=== PATIENT | male | born 1930 | race Caucasian/White ===

== ENCOUNTER 2016-10-26 12:14 | Inpatient (IN) | payer OTHER ==
[~2016-10-26] VITALS: Ht 167.6 cm; Wt 63.7 kg
[~2016-10-26 12:14] MED LIST: ACET325T96 PO; ALL100 PO; ASPI325T39 PO; BISA-16 PO; DIPH50CA56 PO; FURO-85 PO; GLC5 PO; LISI-729 PO; METO-551 PO; MULT-477 PO; NRV5 PO; PANT1TAB48 PO; SRQ25 PO; VENL75TA4 PO
[2016-10-26 15:25] VITALS: BP 157/83; PULSE 79; TEMP 36.6; Ht 167.6 cm; Wt 63.7 kg
[2016-10-26] MEDS ORDERED: ACETAMINOPHEN 325 MG TAB PO PRN (15:30)
[2016-10-26] MEDS ORDERED: ONDANSETRON INJ 2 MG/ML 2 ML VIAL IV PRN (15:30)
[2016-10-26] MEDS ORDERED: MoRPHine SULFATE 4 MG/ML 1 ML CARP\\VIAL IV PRN (16:15)
[2016-10-26] MEDS ORDERED: PATIENT'S HEIGHT AND/OR WEIGHT NEEDED SCH (16:30)
[2016-10-26 16:47] LABS: INR 1.2 (0.9-1.1); PARTIAL THROMBOPLASTIN RATIO 1.2; PROTHROMBIN TIME (PATIENT) 12.5 SECONDS (9.0-12.0)
[2016-10-26] MEDS: HEPARIN SOD 5000 UNIT/0.5 ML CARP SQ SCH (17:17)
--- NOTE | 2016-10-26 17:43 | History and Physical ---
History & Physical Date & Time of Service: Oct 26, 2016 at 17:17 Chief Complaint: Lt Hip Fracture Primary Care Physician: Tatyana Vaz M.D. History of Present Illness Source: patient (could not give detailed history with dementia), hospital records 86 yo male who fell at home on 10/25 after standing up from a chair. The patient has dementia and cannot answer any detailed questions about recent history so the background was gathered from medical records from [facility]. He experienced severe left hip pain after his fall and could not stand up, brought to [facility]. X-ray of the left hip showed a femur fracture near the prior arthroplasty. Eliquis was held and orthopedic consult obtained. The surgeon recommended that surgery be delayed 48 hours after last Eliquis dose which was 10/25 at 2000. Unfortunately the surgeon was going out of town and there would be no orthopedic surgeon available at [place], so the patient was transferred to [facility] for definitive repair of his fracture. Per Dr. Alvarez from [place], the patient was stable overnight, his chronic medical issues were all stable. His pain was controlled with Morphine IV. Past Medical/Surgical History Dementia Medical Problems: (1) Anxiety Status: Chronic (2) Benign hypertension Status: Chronic (3) CKD (chronic kidney disease), stage III Status: Chronic (4) Coronary artery disease Status: Chronic (5) Depression Status: Chronic (6) Diabetes mellitus, type II Status: Chronic (7) Dyslipidemia Status: Chronic (8) History of prostate cancer Status: Chronic (9) History of renal calculi Status: Chronic (10) Hypertension Status: Chronic (11) Insomnia Status: Chronic (12) Spinal stenosis Status: Chronic (13) Thoracic aortic aneurysm Status: Chronic Surgical Problems: (1) Status post appendectomy Status: Chronic (2) Status post cholecystectomy Status: Chronic (3) Status post lumbar surgery Status: Chronic (4) Status post nephrectomy Permanent Comment: for benign disease Status: Chronic (5) Status post prostatectomy Status: Chronic (6) Status post repair hip fracture Status: Chronic Family History Cancer FATHER Diabetes mellitus MOTHER Heart disease SISTER Social History Smoking Status: Never Smoker Marital Status: Housing status: lives with significant other Occupational Status: retired Immunizations History of Influenza Vaccine: Yes History of Tetanus Vaccine?: Unknown History of Pneumococcal: Yes Pneumococcal Date: Aug 28, 2014 History of Hepatitis B Vaccine: Unknown Allergies Coded Allergies: No Known Allergies (Verified , 08/18/02) Home Medications Scheduled Allopurinol (Zyloprim *), 100 MG PO QAM Amlodipine Besylate (Amlodipine Besylate), 5 MG PO QAM Aspirin (Aspirin Ec), 325 MG PO DAILY Diphenhydramine Hcl (Sleep) (Unisom Sleepgels), 50 MG PO HS Furosemide (Lasix), 20 MG PO DAILY Glipizide (Glipizide), 5 MG PO DAILY Lisinopril (Zestril), 5 MG PO DAILY Metoprolol Tartrate (Lopressor), 50 MG PO BID Multiple Vitamin (Thera), 1 TAB PO DAILY Pantoprazole (Protonix), 40 MG PO DAILY Quetiapine Fumarate (Quetiapine Fumarate), 25 MG PO HS Venlafaxine Hcl (Effexor), 75 MG PO DAILY Scheduled PRN Acetaminophen Tab (Tylenol), 650 MG PO for Pain Bisacodyl (Dulcolax), 5 TAB PO DAILY PRN for Constipation Review of Systems patient denies hip pain, chest pain, shortness of breath, detailed ROS could not be obtained due to dementia Physical Exam General Appearance: WD/WN, no apparent distress Head: normocephalic, atraumatic Eyes: normal inspection, EOMI, sclerae normal ENT: normal ENT inspection, hearing grossly normal, pharynx normal Neck: supple, no adenopathy, no JVD, trachea midline Respiratory/Chest: chest non-tender, lungs clear, normal breath sounds, no respiratory distress, no accessory muscle use Cardiovascular: regular rate, rhythm (regular with an occasional irregular beat and pause, likely PVC's), no edema, no gallop, no JVD, no murmur, normal peripheral pulses Abdomen/GI: normal bowel sounds, non tender, soft, no organomegaly Back: normal inspection, no CVA tenderness, no muscle spasm, normal range of motion Extremities/Musculoskelatal: no calf tenderness, normal capillary refill, no pedal edema, pelvis stable, + pertinent finding (left hip slightly tender, slightly internally rotated, limited ROM due to pain) Neurologic/Psych: tray worker II-XII nml as tested, no motor/sensory deficits, alert, normal mood/affect, normal reflexes, + disoriented Skin: normal color, warm/dry, no rash Lymphatic: no adenopathy Diagnostics Laboratory Results Results Past 24 Hours Test 10/26/16 16:30 Range/Units Prothrombin Time 12.5 9.0-12.0 SECONDS Prothromb Time International Ratio 1.2 0.9-1.1 Activated Partial Thromboplast Time 31.0 21.0-31.0 SECONDS Partial Thromboplastin Ratio 1.2 Impression Assessment and Plan 86 yo male with dementia, sick sinus syndrome, chronic diastolic HF, DM type II who suffered a periprosthetic left hip fracture after a fall at home - Left periprosthetic hip fracture: consult orthopedics for recommendations obtain EKG, Chest x-ray, BMP for pre-operative evaluation consent would need to be done through [facility] [place], NSS at 75cc/hr for optimization last took Eliquis 2.5mg on 10/25 at approximately 1999, so 48 hour iesha would be 10/27 at 1999 - H/o sick sinus syndome, permanent atrial fibrillation: takes Eliquis for stroke prevention continue Coreg 3.125mg BID and Diltiazem 30mg daily (this was confirmed by Dr. Alvarez at [place]) obtain pre-op EKG - Chronic diastolic HF: continue Coreg, Lisinopril, hold Lasix but resume after surgery - DM type II: hold Glipizide, utilize Novolog SS and diabetic diet - DVT prophylaxis: heparin SC as Eliquis wearing off, stop prior to OR Code status: DNR according to living will, will need temporarily reversed for the OR and then back to DNR after surgery Keysha Arce, [place] guardian, , tried to contact, no answer Level of Care Med/Surg Advanced Directives Existing Advance Directive: Yes Existing Living Will: Yes Existing Power of Medical Case Manager: Yes Resuscitation Status DO NOT RESUSCITATE VTE Prophylaxis VTE Risk Assessment Done? Y/N: Yes Risk Level: High Given or contraindicated: Unfractionated heparin SQ
[2016-10-26] MEDS: MoRPHine SULFATE 2 MG/ML CARP IV PRN (18:28)
[2016-10-26] MEDS: SODIUM CHLORIDE 0.9% 1000ML 1,000 ML IV SCH (18:28)
[2016-10-26] MEDS ORDERED: GLUCOSE 40% GEL 15 GM TUBE PO PRN (18:45)
[2016-10-26] MEDS ORDERED: GLUCOSE 10 TABS/TUBE PO PRN (18:45)
[2016-10-26] MEDS ORDERED: DEXTROSE 50% 50 ML SYR IV PRN (18:45)
[2016-10-26] MEDS ORDERED: GLUCAGON FOR INJ 1 MG VIAL SQ PRN (18:45)
--- NOTE | 2016-10-26 19:38 | DIAGNOSTIC IMAGING REPORT ---
CHEST ONE VIEW PORTABLE HISTORY: pre-operative COMPARISON: Chest 03/07/2015. FINDINGS: The heart is mildly enlarged. There is mild pulmonary vascular congestion without overt edema. No pleural effusions. No pneumothorax. There is an IVC filter. Prior cholecystectomy. No rib fractures. IMPRESSION: Cardiomegaly with mild pulmonary vascular congestion. Electronically signed by: Damir Moura M.D. 10/26/2016 7:36 PM Dictated Date/Time: 10/26/2016 7:35 PM
[2016-10-26] MEDS ORDERED: METOPROLOL TARTRATE 50 MG TAB PO SCH (21:00)
[2016-10-26] MEDS: INSULIN ASPART 100 UNITS/ML 3 ML PEN SC SCH (21:00)
[2016-10-26] MEDS: QUETIAPINE FUMARATE 25 MG TAB PO SCH (21:15)
[2016-10-26] MEDS: CARVEDILOL 3.125 MG TAB PO SCH (21:15)
--- NOTE | 2016-10-26 21:48 | ORTHOPEDIC CONSULTATION ---
DATE OF CONSULTATION: 10/26/2016 ADDENDUM Reviewed x-rays. The patient has an uncemented bipolar hemiarthroplasty of the left femur with a periprosthetic fracture which starts at the greater trochanter, it spirals down, exits at the tip of the stem to just below the tip of the stem. There is some widening of the canal at the area of the fracture which would indicate the stem is most likely loose. PLAN: Would be revision to a long stem prosthetic with cerclage wires. We will discuss this with Dr. Salamanca and Dr. Bates with regard to definitive treatment plan.
--- NOTE | 2016-10-26 22:05 | ORTHOPEDIC CONSULTATION ---
DATE OF CONSULTATION: 10/26/2016 HISTORY OF PRESENT ILLNESS: The patient is an 86-year-old male, who fell at home, October 25. The patient has dementia and is a poor historian. I did ask him about his injuries when he fell in the kitchen. Not clear whether this is true or not. The patient is clearly demented and disoriented, but awake and alert. Because of the pain, he brought to [facility], x-rayed, showed a periprosthetic fracture. Apparently, there was no coverage in [place] for orthopedics and he was transferred here for definitive treatment. He is on Eliquis, last dose October 25. PAST MEDICAL HISTORY: Dementia, anxiety, hypertension, chronic kidney disease stage III, CAD, type 2 diabetes, dyslipidemia, prostate CA, renal calculi, chronic insomnia, spinal stenosis, thoracic aortic aneurysm, multiple surgeries, including hip surgery. FAMILY HISTORY: Diabetes, heart disease. SOCIAL HISTORY: Nonsmoker. . There is no significant other. Retired. ALLERGIES: None known. MEDICATIONS: Multiple. Allopurinol, amlodipine, aspirin, diphenhydramine, HCl, Lasix, glipizide, Zestril, Lopressor, multivitamin, Protonix, Effexor, quetiapine, fumarate, Eliquis, p.r.n. Tylenol, Dulcolax. PHYSICAL EXAMINATION: His extremity exam, his left hip is held in a flexed and slightly externally rotated position. He has a swollen thigh and some bruising down to his knee. He also has a swollen knee. He can dorsiflex and plantar flex his ankle, but cannot raise his great toe. Capillary refill intact. X-rays are pending at time of this evaluation. ASSESSMENT: Periprosthetic fracture, according to records. PLAN: Taking new x-rays here at , have IT assist with obtaining x-rays from [facility]. Patient will not be able to have surgery tomorrow, as it is still too early with last dose of Eliquis. Further recommendations after studies reviewed.
--- NOTE | 2016-10-26 22:08 | DIAGNOSTIC IMAGING REPORT ---
LEFT FEMUR 2 VIEWS ROUTINE CLINICAL HISTORY: preop ,view entire femur hip to knee COMPARISON STUDY: Left hip 10/25/2016. FINDINGS: Displaced and slightly angulated oblique periprosthetic fracture within the proximal left femur. No dislocation. The visualized pelvic bones appear intact. The fracture demonstrates up to 2.5 cm of anterior displacement distally. The distal femur is intact. IMPRESSION: Displaced periprosthetic fracture within the proximal left femur. Electronically signed by: Damir Moura M.D. 10/26/2016 10:06 PM Dictated Date/Time: 10/26/2016 10:03 PM
[2016-10-26 23:33] VITALS: BP 122/56; PULSE 74; TEMP 36.1; O2SAT 92
[2016-10-27] MEDS: MoRPHine SULFATE 2 MG/ML CARP IV PRN (00:11)
[2016-10-27] MEDS: HEPARIN SOD 5000 UNIT/0.5 ML CARP SQ SCH ×4 (00:12→23:50)
[2016-10-27] MEDS: SODIUM CHLORIDE 0.9% 1000ML 1,000 ML IV SCH ×2 (06:14→20:21)
[2016-10-27 06:48] LABS: BASO % 0.3 %; BASO ABS # 0.02 K/uL (0-0.2); EOS % 1.4 %; HEMATOCRIT 26.7 % (42-52); IG% 0.1 %; LYMPH % 20.5 %; LYMPH ABS # 1.42 K/uL (1.2-3.4); MEAN CELL VOLUME 98.5 fL (80-100); MEAN CORPUSCULAR HEMOGLOBIN 30.3 pg (25-34); MEAN CORPUSCULAR HGB CONC 30.7 g/dl (32-36); MEAN PLATELET VOLUME 8.8 fL (7.4-10.4); NEUT % 67.7 %; PLATELET COUNT 181 K/uL (130-400); RED BLOOD COUNT 2.71 M/uL (4.7-6.1); WHITE BLOOD COUNT 6.92 K/uL (4.8-10.8)
[2016-10-27 06:54] LABS: INR 1.2 (0.9-1.1); PROTHROMBIN TIME (PATIENT) 13.1 SECONDS (9.0-12.0)
[2016-10-27 07:15] LABS: COMPLETE YES
[2016-10-27 07:19] VITALS: BP 152/84; PULSE 73; TEMP 36.6; O2SAT 95
[2016-10-27 07:22] LABS: BUN/CREATININE RATIO 27.5 (10-20); CALCIUM 8.6 mg/dl (8.5-10.1); CREATININE 1.9 mg/dl (0.60-1.40); MAGNESIUM 2.3 mg/dl (1.8-2.4); POTASSIUM 5.3 mmol/L (3.5-5.1)
[2016-10-27] MEDS: INSULIN ASPART 100 UNITS/ML 3 ML PEN SC SCH ×4 (08:00→21:00)
[2016-10-27] MEDS: AMLODIPINE BESYLATE 5 MG TAB PO SCH (09:19)
[2016-10-27] MEDS: ALLOPURINOL 100 MG TAB PO SCH (09:19)
[2016-10-27] MEDS: VENLAFAXINE HCL 50 MG TAB PO SCH (09:19)
[2016-10-27] MEDS: FUROSEMIDE 20 MG TAB PO SCH (09:19)
[2016-10-27] MEDS: LISINOPRIL 5 MG TAB PO SCH (09:20)
[2016-10-27] MEDS: PANTOprazole SOD 40 MG TAB PO SCH (09:20)
[2016-10-27] MEDS: DILTIAZEM HCL 30 MG TAB PO SCH (09:20)
[2016-10-27] MEDS: CARVEDILOL 3.125 MG TAB PO SCH ×2 (09:20→20:21)
--- NOTE | 2016-10-27 10:25 | Clinical Documentation Query ---
ANGELI Pittman : CLINICAL DOCUMENTATION QUERY Patient is an 86 year old male accepted in transfer from outside hospital for periprosthetic femur fracture of left hip. Hemoglobin and hematocrit this a.m. were 8.2 g/dl and 26.7%. Patient seen in consultation by orthopedic surgery and anticipated operative repair this admission. In your clinical opinion is this patient being managed for: ( ) Acute blood loss anemia ( ) Other explanation of clinical findings (Please Explain) (X ) Unable to determine (Please Define) ( ) Need to Discuss ( ) Not Agree The medical record reflects the following clinical findings, treatment, and risk factors. Clinical Indicators: As above Treatment: For operative repair this admission, serial hematology Risk Factors: Fall, periprosthetic femur fracture, Eliquis Please clarify and document your clinical opinion in the progress notes and discharge summary. Terms such as "probable", "suspected", "likely", "questionable", "possible", or "still to be ruled out" are acceptable. IF IN AGREEMENT, YOU MUST DOCUMENT ABOVE DIAGNOSTIC STATEMENT IN DAILY PROGRESS NOTES AND DISCHARGE SUMMARY. This document is not part of the patient's record. Thank You, Bhargav Chino, RN [phone]
--- NOTE | 2016-10-27 10:35 | Progress Note ---
Subjective Date of Service: Oct 27, 2016. Subjective Pt evaluation today including: conversation w/ patient, conversation w/ family , physical exam, chart review, lab review, review of studies, conversation w/ production support consultant, review of inpatient medication list patient is a poor historian and appears to have underlying dementia. spoke with guardian Keysha Arce for [place]. She reports he takes Eliquis for atrial fibrillation, however, niece also reports a "clot" but could not tell me if this was DVT, PE, CVA, MS or otherwise. She also reports patient developed atrial fibrillation during surgery. He also had post-op anesthesia severe delirium but she was unable to tell me other intra-op complications. She had spoke with Dr. Matthews ([phone]) at [place] who had suggested a spinal anesthesia rather than general due to cardiac concerns and anesthesia reaction; also discussed was a possibility of a plate rather than a total replacement. Spoke with MORGAN Silveira from Dr. Nova Bauer's office ([phone]; [phone] ) who reports there were no DVTs/PEs listed in medical problems but does have CHF, Afib, CKD, T2DM, and HTN. THe eliquis, as far as she knows, was only for afib. Cardio: Félix Back Total encounter time: 45 minutes. Patient reports left back/hip pain and left medial knee pain. No chest pain, no sob. Hard of hearing. Review of Systems All Other Systems: Reviewed and Negative Medications Acetaminophen (Tylenol Tab) 650 mg Q4H PRN PO Last administered on 10/27/16 09:30; Admin Dose 650 MG; Start 10/26/16 at 15:30; Stop 11/25/16 at 15:29 Allopurinol (Zyloprim Tab) 100 mg QAM PO Last administered on 10/27/16 09:19; Admin Dose 100 MG; Start 10/27/16 at 09:00; Stop 11/26/16 at 08:59 Amlodipine Besylate (Norvasc Tab) 5 mg QAM PO Last administered on 10/27/16 09: 19; Admin Dose 5 MG; Start 10/27/16 at 09:00; Stop 11/26/16 at 08:59 Carvedilol (Coreg Tab) 3.125 mg BID PO Last administered on 10/27/16 09:20; Admin Dose 3.125 MG; Start 10/26/16 at 21:00; Stop 11/25/16 at 20:59 Dextrose (Dextrose 50% 50ML Syringe) 25-50ML OF 50% DW IV FOR... UD PRN IV; Start 10/26/16 at 18:45; Stop 11/25/16 at 18:44 Diltiazem HCl (Cardizem Tab) 30 mg DAILY PO Last administered on 10/27/16 09:20 ; Admin Dose 30 MG; Start 10/27/16 at 09:00; Stop 11/26/16 at 08:59 Furosemide (Lasix Tab) 20 mg DAILY PO Last administered on 10/27/16 09:19; Admin Dose 20 MG; Start 10/27/16 at 09:00; Stop 11/26/16 at 08:59 Glucagon (Glucagon Inj) 1 mg UD PRN SQ; Start 10/26/16 at 18:45; Stop 11/25/16 at 18:44 Glucose (Glucose 40% Gel) 15-30 GRAMS 15 GRAMS... UD PRN PO; Start 10/26/16 at 18:45; Stop 11/25/16 at 18:44 Glucose (Glucose Chew Tab) 4-8 Tablets 4 Tabl... UD PRN PO; Start 10/26/16 at 18:45; Stop 11/25/16 at 18:44 Heparin Sodium (Porcine) (Heparin Sq 5000 Unit/0.5ml) 5,000 unit Q8H SQ Last administered on 10/27/16 09:27; Admin Dose 5,000 UNIT; Start 10/26/16 at 16:00 ; Stop 11/25/16 at 15:59 Insulin Aspart (novoLOG ASPART) SLIDING SCALE G... ACHS SC; Start at 21:00; Stop 11/25/16 at 20:59 Lisinopril (Zestril Tab) 5 mg DAILY PO Last administered on 10/27/16 09:20; Admin Dose 5 MG; Start 10/27/16 at 09:00; Stop 11/26/16 at 08:59 Morphine Sulfate (MoRPHine SULFATE INJ) 2 mg Q4H PRN IV Last administered on 00:11; Admin Dose 2 MG; Start 10/26/16 at 16:15; Stop 11/09/16 at 16:14 Morphine Sulfate 4 mg 4 mg Q4H PRN IV; Start 10/26/16 at 16:15; Stop 11/09/16 at 16:14 Ondansetron HCl (Zofran Inj) 4 mg Q6H PRN IV; Start 10/26/16 at 15:30; Stop at 15:29 Pantoprazole Sodium (Protonix Tab) 40 mg DAILY PO Last administered on 09:20; Admin Dose 40 MG; Start 10/27/16 at 09:00; Stop 11/26/16 at 08:59 Quetiapine Fumarate (seroQUEL TAB) 25 mg HS PO Last administered on 10/26/16 21 :15; Admin Dose 25 MG; Start 10/26/16 at 21:00; Stop 11/25/16 at 20:59 Sodium Chloride (Nss 1000ml) 1,000 ml @ 75 mls/hr [id number] IV Last administered on 10/27/16 06:14; Admin Dose 75 MLS/HR; Start 10/26/16 at 17:45; Stop at 17:44 Venlafaxine HCl (effeXOR TAB) 75 mg DAILY PO Last administered on 10/27/16 09: 19; Admin Dose 75 MG; Start 10/27/16 at 09:00; Stop 11/26/16 at 08:59 Objective Vital Signs Date Time Temp Pulse Resp B/P Pulse Ox O2 Delivery O2 Flow Rate FiO2 10/27/16 07:19 36.6 73 18 152/84 95 Room Air 10/27/16 00:20 Room Air 10/26/16 23:33 36.1 74 16 122/56 92 10/26/16 15:25 36.6 79 16 157/83 Nasal Cannula 2.0 10/26/16 15:25 Nasal Cannula 2.0 Physical Exam Comments: nad, aox3, conjunctival pallor, anicteric hard of hearing irreg irreg, no murmurs appreciated ctab no w/r/r abd soft nt/nd +BS no LE edema pandya in place Laboratory Results Last 24 Hours Test 10/26/16 16:30 4/23/17 17:22 10/26/16 20:45 10/27/16 06:23 Prothrombin Time 12.5 SECONDS 13.1 SECONDS Prothromb Time International Ratio 1.2 1.2 Activated Partial Thromboplast Time 31.0 SECONDS Partial Thromboplastin Ratio 1.2 Bedside Glucose 120 mg/dl 136 mg/dl White Blood Count 6.92 K/uL Red Blood Count 2.71 M/uL Hemoglobin 8.2 g/dL Hematocrit 26.7 % Mean Corpuscular Volume 98.5 fL Mean Corpuscular Hemoglobin 30.3 pg Mean Corpuscular Hemoglobin Concent 30.7 g/dl Platelet Count 181 K/uL Mean Platelet Volume 8.8 fL Neutrophils (%) (Auto) 67.7 % Lymphocytes (%) (Auto) 20.5 % Monocytes (%) (Auto) 10.0 % Eosinophils (%) (Auto) 1.4 % Basophils (%) (Auto) 0.3 % Neutrophils # (Auto) 4.68 K/uL Lymphocytes # (Auto) 1.42 K/uL Monocytes # (Auto) 0.69 K/uL Eosinophils # (Auto) 0.10 K/uL Basophils # (Auto) 0.02 K/uL RDW Standard Deviation 62.3 fL RDW Coefficient of Variation 17.7 % Immature Granulocyte % (Auto) 0.1 % Immature Granulocyte # (Auto) 0.01 K/uL Red Blood Cell Morphology Unremarkable Sodium Level 144 mmol/L Potassium Level 5.3 mmol/L Chloride Level 110 mmol/L Carbon Dioxide Level 29 mmol/L Anion Gap 5.0 mmol/L Blood Urea Nitrogen 52 mg/dl Creatinine 1.90 mg/dl Est Creatinine Clear Calc Drug Dose 25.1 ml/min Estimated GFR () 36.2 Estimated GFR (Non- 31.2 BUN/Creatinine Ratio 27.5 Random Glucose 146 mg/dl Calcium Level 8.6 mg/dl Magnesium Level 2.3 mg/dl Test 10/27/16 08:15 Bedside Glucose 122 mg/dl Assessment and Plan 1. Left hip fracture - prior arthroplasty - tentatively scheduled for OR tomorrow - will need cardiac assessment with CHF, Afib, CAD (no prior stents per niece) - previously seen by Dr. Foley 2. Afib - Eliquis held since 10/25 at 10 pm - dvt ppx with hsq - cont diltiazem 3. CAD - cont coreg - hold off asa for now 4. CHF - appears compensated - cardio consulted - cont furosemide and lisinopril 5. HTN - BP borderline elevated - will monitor, goal <150 systolic 6. T2DM - acceptable glucose readings on sliding scale 7. CKD IIIb - baseline appears to be ~1.6-2.0 - slightly hyperkalemic - will give extra dose of lasix if potassium increases - renal diabetic diet if tolerates po
--- NOTE | 2016-10-27 12:23 | CARDIOLOGY CONSULTATION ---
DATE OF CONSULTATION: 10/27/2016 DATE OF CONSULTATION: 10/27/2016. [facility] REASON FOR CONSULTATION: Preoperative clearance. HISTORY OF PRESENT ILLNESS: This is an 86-year-old demented male patient who was in his usual state of health at home. He stood up from a chair and fell sustaining periprosthetic hip fracture on the left side. He was seen at [facility] and then transferred here for definitive treatment. As mentioned above, the patient is demented and cannot provide any significant history. The history is taken from the medical record as well as records from [facility]. According to our records, he has not seen a medical device sales in the past, at least not the recent past. His last contact with cardiovascular service line was with the cardiothoracic surgeons who evaluated him regarding an enlarged anterior thoracic aorta which they deemed to be an nonoperable and recommended conservative followup. That was in 2013 and it is mentioned in the notes at that time that the patient may have been demented. He had a previous hospital admission here. He had a previous admission here in March 2015, at which time Dr. Lemons saw him. He was being treated for DVT with Coumadin and developed some confusion and was admitted here with minor elevation in his cardiac troponins, most likely due to underlying renal insufficiency. He has no recent cardiac history and as mentioned above, he is not followed by cardiology. ALLERGIES: No known medical allergies. PAST MEDICAL HISTORY: The patient has advanced dementia. He also has chronic stage III kidney disease. He is a type 2 diabetic and may have a history of chronic coronary artery disease with no recent stents. He has history of prostate cancer and hypertension. As outlined above, he has a history of a thoracic aortic aneurysm. SOCIAL HISTORY: He is a never smoker. He is and retired. FAMILY MEDICAL HISTORY: Noncontributory. REVIEW OF SYSTEMS: A 12-point review of systems is unobtainable. PHYSICAL EXAMINATION: GENERAL: He is responsive. VITAL SIGNS: Blood pressure is 150/80, pulse is regular at 73. He is afebrile. HEAD, EYES, EARS, NOSE, AND THROAT: He is normocephalic. Pupils are equal and reactive to light. Mucous membranes are moist. NECK: The neck veins are flat. Carotids have good upstrokes bilaterally without bruits. Thyroid is nonpalpable. RESPIRATORY: Breath sounds equal bilaterally and clear to auscultation. CARDIOVASCULAR: Heart has an irregular rhythm. No cardiac murmurs or rubs. GASTROINTESTINAL: Abdomen is soft, nontender without organomegaly. EXTREMITIES: Free of edema, digit clubbing, or cyanosis. NEUROLOGIC: Grossly intact. SKIN: Warm to touch. LYMPH NODES: Negative to palpation. LABORATORY DATA: Hemoglobin is 8.2. WBC count 6.9, creatinine is 1.9, potassium is 5.3. EKG reveals atrial fibrillation with controlled ventricular response. IMPRESSION: 1. Left periprosthetic hip fracture. 2. Advanced dementia. 3. Diabetes mellitus. 4. Hypertension. 5. History of a thoracic aneurysm evaluated by cardiothoracic surgery 2 years ago and determined to be medical management only. RECOMMENDATIONS: The minimal amount of surgery should be performed on this elderly demented patient with multiple medical problems. The minimal amount of surgery to provide him with comfort and the possibility of ambulation should be considered. I will obtain an echocardiogram to evaluate his LV function, but he does not appear on exam to have significant valvular heart disease. The echocardiogram should not delay his surgery. We will follow along with you during his hospital stay.
[2016-10-27 12:24] LABS: FERRITIN 73.7 ng/ml (8.0-388.0)
[2016-10-27 15:20] VITALS: BP 133/64; PULSE 85; TEMP 36.6; O2SAT 95
[2016-10-27 16:00] VITALS: O2SAT 95
--- NOTE | 2016-10-27 17:55 | Orthopedic Progress Note ---
Orthopedic Progress Note Date of Service Oct 27, 2016. Subjective Additional Notes: Pt awake, alert, pleasantly confused. Wants to go home tonight and he'll come back tomorrow. Discussed that he needs surgery for his fracture. Pt replied, "keep the incision small if you can." Appears comfortable presently. No complaints. Objective calves soft nontender, N/V intact, toes mobile LLE shortened and externally rotated compared to right. [place] txn boot on without any weight on. Date Time Temp Pulse Resp B/P Pulse Ox O2 Delivery O2 Flow Rate FiO2 10/27/16 16:00 95 Room Air 10/27/16 15:20 36.6 85 16 133/64 95 Room Air 10/27/16 07:20 Room Air 10/27/16 07:19 36.6 73 18 152/84 95 Room Air 10/27/16 00:20 Room Air 10/26/16 23:33 36.1 74 16 122/56 92 Laboratory Results 24 Hours: Test 10/27/16 06:23 White Blood Count 6.92 K/uL Red Blood Count 2.71 M/uL Hemoglobin 8.2 g/dL Hematocrit 26.7 % Mean Corpuscular Volume 98.5 fL Mean Corpuscular Hemoglobin 30.3 pg Mean Corpuscular Hemoglobin Concent 30.7 g/dl Platelet Count 181 K/uL Mean Platelet Volume 8.8 fL Neutrophils (%) (Auto) 67.7 % Lymphocytes (%) (Auto) 20.5 % Monocytes (%) (Auto) 10.0 % Eosinophils (%) (Auto) 1.4 % Basophils (%) (Auto) 0.3 % Neutrophils # (Auto) 4.68 K/uL Lymphocytes # (Auto) 1.42 K/uL Monocytes # (Auto) 0.69 K/uL Eosinophils # (Auto) 0.10 K/uL Basophils # (Auto) 0.02 K/uL Prothromb Time International Ratio 1.2 Prothrombin Time 13.1 SECONDS Assessment & Plan Assessment: Left Periprosthetic Femur Fx Plan: Plans will be for patient to undergo and ORIF with cabling of the fx itself. If his Bipolar prosthesis is loosened, he will have to have this replaced with a longer stemmed prosthesis. Hopefully, we can do the minimal amount surgery for him. Planning for OR after 2pm tomorrow. Inhouse Planning Pain Management: Ultram, Morphine, PO Tylenol
[2016-10-27 20:19] VITALS: BP 144/72; PULSE 102; O2SAT 91
[2016-10-27] MEDS: QUETIAPINE FUMARATE 25 MG TAB PO SCH (20:21)
[2016-10-27] MEDS: TRAMADOL HCL 50 MG TAB PO PRN (21:06)
[2016-10-27 23:28] VITALS: BP 152/82; PULSE 86; TEMP 36.8; O2SAT 99
[2016-10-28] VITALS (19 sets, daily range): BP systolic 101–164; BP diastolic 46–82; PULSE 51–94; TEMP 36.2–37.1; O2SAT 89–100
[2016-10-28] MEDS ORDERED: NURSING DECISION MEDICATION ORDER SCH (01:30)
[2016-10-28] MEDS: INSULIN ASPART 100 UNITS/ML 3 ML PEN SC SCH ×3 (06:00→22:14)
[2016-10-28 07:47] LABS: INR 1.1 (0.9-1.1)
[2016-10-28] MEDS: VENLAFAXINE HCL 50 MG TAB PO SCH (07:52)
[2016-10-28] MEDS: HEPARIN SOD 5000 UNIT/0.5 ML CARP SQ SCH ×3 (07:52→23:29)
[2016-10-28] MEDS: FUROSEMIDE 20 MG TAB PO SCH (07:53)
[2016-10-28] MEDS: ALLOPURINOL 100 MG TAB PO SCH (07:53)
[2016-10-28] MEDS: PANTOprazole SOD 40 MG TAB PO SCH (07:53)
[2016-10-28 08:28] LABS: ALB/GLOB RATIO 0.8 (0.9-2); BUN/CREATININE RATIO 28.2 (10-20); CALCIUM 8.4 mg/dl (8.5-10.1); CREATININE 1.8 mg/dl (0.60-1.40); MAGNESIUM 2.3 mg/dl (1.8-2.4); POTASSIUM 4.2 mmol/L (3.5-5.1)
[2016-10-28] MEDS: AMLODIPINE BESYLATE 5 MG TAB PO SCH (08:28)
[2016-10-28] MEDS: DILTIAZEM HCL 30 MG TAB PO SCH (08:28)
[2016-10-28] MEDS: LISINOPRIL 5 MG TAB PO SCH (08:28)
[2016-10-28] MEDS: CARVEDILOL 3.125 MG TAB PO SCH ×2 (08:29→22:27)
[2016-10-28] MEDS ORDERED: LISINOPRIL 5 MG TAB PO ONE (09:30)
--- NOTE | 2016-10-28 09:30 | Progress Note ---
Subjective Date of Service: Oct 28, 2016. Subjective Pt evaluation today including: conversation w/ patient, physical exam, chart review, lab review, review of studies, conversation w/ funeral pre need consultant, review of inpatient medication list Patient pleasantly confused. No chest pain, no sob, No abd pain. Review of Systems All Other Systems: Reviewed and Negative Medications Acetaminophen (Tylenol Tab) 650 mg Q4H PRN PO Last administered on 10/27/16 09:30; Admin Dose 650 MG; Start 10/26/16 at 15:30; Stop 11/25/16 at 15:29 Acetaminophen/ Empty Bag (Ofirmev Iv/ Empty Iv Bag 100ml) 100 ml @ 400 mls/hr Q8H IV; Start 10/28/16 at 18:00; Stop 10/29/16 at 17:59 Acetaminophen/ Hydrocodone Bitart ([place] 5/325 Tab) 1-2 TABS FOR PAIN 1 TABLET ... Q6H PRN PO; Start 10/28/16 at 17:00; Stop 11/11/16 at 16:59; Status Future hold Allopurinol (Zyloprim Tab) 100 mg QAM PO Last administered on 10/27/16 09:19; Admin Dose 100 MG; Start 10/27/16 at 09:00; Stop 11/26/16 at 08:59 Amlodipine Besylate (Norvasc Tab) 5 mg QAM PO Last administered on 10/28/16 08: 28; Admin Dose 5 MG; Start 10/27/16 at 09:00; Stop 11/26/16 at 08:59 Atropine Sulfate (Atropine Sulfate 0.1MG/Ml Inj) 0.5 mg Q1M PRN IV; Start 10/28 at 15:00; Stop 10/28/16 at 20:00 Bisacodyl (Dulcolax Supp) 10 mg DAILY PRN CA; Start 10/28/16 at 17:00; Stop at 16:59 Carvedilol (Coreg Tab) 3.125 mg BID PO Last administered on 10/28/16 08:29; Admin Dose 3.125 MG; Start 10/26/16 at 21:00; Stop 11/25/16 at 20:59 Cefazolin Sodium/ Dextrose (Ancef Iv/D5 50ml) 55 ml @ 100 mls/hr Q8H IV; Start 10/28/16 at 17:00; Stop 10/29/16 at 01:32; Status UNV Dextrose (Dextrose 50% 50ML Syringe) 25-50ML OF 50% DW IV FOR... UD PRN IV; Start 10/26/16 at 18:45; Stop 11/25/16 at 18:44 Diltiazem HCl (Cardizem Tab) 30 mg DAILY PO Last administered on 10/28/16 08:28 ; Admin Dose 30 MG; Start 10/27/16 at 09:00; Stop 11/26/16 at 08:59 Docusate Sodium (coLACE CAP) 100 mg BID PO; Start 10/28/16 at 21:00; Stop at 20:59 Ferrous Sulfate (Feosol Tab) 325 mg BIDM PO; Start 10/30/16 at 08:30; Stop 11/29 at 08:29 Furosemide (Lasix Tab) 20 mg DAILY PO Last administered on 10/27/16 09:19; Admin Dose 20 MG; Start 10/27/16 at 09:00; Stop 11/26/16 at 08:59 Glucagon (Glucagon Inj) 1 mg UD PRN SQ; Start 10/26/16 at 18:45; Stop 11/25/16 at 18:44 Glucose (Glucose 40% Gel) 15-30 GRAMS 15 GRAMS... UD PRN PO; Start 10/26/16 at 18:45; Stop 11/25/16 at 18:44 Glucose (Glucose Chew Tab) 4-8 Tablets 4 Tabl... UD PRN PO; Start 10/26/16 at 18:45; Stop 11/25/16 at 18:44 Heparin Sodium (Porcine) (Heparin Sq 5000 Unit/0.5ml) 5,000 unit Q8H SQ Last administered on 10/27/16 23:50; Admin Dose 5,000 UNIT; Start 10/26/16 at 16:00 ; Stop 11/25/16 at 15:59 Hydromorphone HCl (Dilaudid Inj) 0.25 mg Q5M PRN IV; Start 10/28/16 at 15:00; Stop 10/28/16 at 20:00 Insulin Aspart (novoLOG ASPART) SLIDING SCALE G... Q6H SC; Start 10/28/16 at 06:00; Stop 11/27/16 at 05:59 Labetalol HCl 5 mg 5 mg Q5M PRN IV; Start 10/28/16 at 15:00; Stop 10/28/16 at 20:00 Lisinopril (Zestril Tab) 10 mg DAILY PO; Start 10/29/16 at 09:00; Stop 11/28/16 at 08:59 Magnesium Hydroxide (Milk Of Magnesia Susp) 30 ml Q6H PRN PO; Start 10/28/16 at 17:00; Stop 11/27/16 at 16:59 Metoclopramide HCl 10 mg 10 mg Q6H PRN IV; Start 10/28/16 at 17:00; Stop at 16:59 Morphine Sulfate (MoRPHine SULFATE INJ) 2 mg Q4H PRN IV Last administered on 00:11; Admin Dose 2 MG; Start 10/26/16 at 16:15; Stop 11/09/16 at 16:14 Morphine Sulfate 4 mg 4 mg Q4H PRN IV; Start 10/26/16 at 16:15; Stop 11/09/16 at 16:14 Morphine Sulfate If PO analgesic is order... Q3R PRN IV; Start 10/28/16 at 17: 00; Stop 11/11/16 at 16:59; Status UNV Ondansetron HCl (Zofran Inj) 4 mg ONE PRN IV; Start 10/28/16 at 15:00; Stop at 20:00 Ondansetron HCl (Zofran Inj) 4 mg Q6H PRN IV; Start 10/28/16 at 17:00; Stop at 16:59 Pantoprazole Sodium (Protonix Tab) 40 mg DAILY PO Last administered on 09:20; Admin Dose 40 MG; Start 10/27/16 at 09:00; Stop 11/26/16 at 08:59 Potassium Chloride/Sodium Chloride (KCl Inj/Nss 1000ml) 1,005 ml @ 100 mls/hr Q10H3M IV; Start 10/28/16 at 17:30; Stop 11/27/16 at 17:29 Quetiapine Fumarate (seroQUEL TAB) 25 mg HS PO Last administered on 10/27/16 20 :21; Admin Dose 25 MG; Start 10/26/16 at 21:00; Stop 11/25/16 at 20:59 Senna (Senokot Tab) 17.2 mg HS PO; Start 10/28/16 at 21:00; Stop 11/27/16 at 20: 59 Sodium Biphosphate/ Sodium Phosphate (Fleet Enema) 132 ml DAILY PRN CA; Start 10/28/16 at 17:00; Stop 11/27/16 at 16:59 Sodium Chloride (Nss 1000ml) 1,000 ml @ 75 mls/hr [id number] IV Last administered on 10/28/16 09:41; Admin Dose 75 MLS/HR; Start 10/26/16 at 17:45; Stop at 17:44 Tramadol HCl (Ultram Tab) @ Q4H PRN PO Last administered on 10/27/16 21:06; Admin Dose 50 MG; Start 10/27/16 at 17:45; Stop 11/26/16 at 17:44 Venlafaxine HCl (effeXOR TAB) 75 mg DAILY PO Last administered on 10/27/16 09: 19; Admin Dose 75 MG; Start 10/27/16 at 09:00; Stop 11/26/16 at 08:59 Objective Vital Signs Date Time Temp Pulse Resp B/P Pulse Ox O2 Delivery O2 Flow Rate FiO2 10/28/16 08:27 156/82 10/28/16 07:37 36.8 75 18 164/71 96 Room Air 10/28/16 00:10 Room Air 10/27/16 23:28 36.8 86 20 152/82 99 Room Air 10/27/16 20:19 102 144/72 91 Room Air 10/27/16 19:34 Room Air 10/27/16 16:00 95 Room Air 10/27/16 15:20 36.6 85 16 133/64 95 Room Air Physical Exam Comments: nad, awake, alert, oriented only to self irreg irreg, no murmur s appreciated ctab no w/r/r abd soft nt/nd +BS no LE edema Laboratory Results Last 24 Hours Test 10/27/16 11:30 10/27/16 11:50 10/27/16 17:02 10/27/16 20:51 Iron Level 24 mcg/dl Total Iron Binding Capacity 207 mcg/dl Transferrin 158 mg/dl Transferrin % Saturation 11 % Ferritin 73.7 ng/ml Vitamin B12 Level 355 pg/mL Folate > 24.00 ng/mL Bedside Glucose 148 mg/dl 156 mg/dl 156 mg/dl Test 10/28/16 05:55 10/28/16 06:26 Bedside Glucose 104 mg/dl Prothrombin Time 12.0 SECONDS Prothromb Time International Ratio 1.1 Sodium Level 143 mmol/L Potassium Level 4.2 mmol/L Chloride Level 110 mmol/L Carbon Dioxide Level 27 mmol/L Anion Gap 6.0 mmol/L Blood Urea Nitrogen 51 mg/dl Creatinine 1.80 mg/dl Est Creatinine Clear Calc Drug Dose 26.5 ml/min Estimated GFR () 38.6 Estimated GFR (Non- 33.3 BUN/Creatinine Ratio 28.2 Random Glucose 112 mg/dl Calcium Level 8.4 mg/dl Magnesium Level 2.3 mg/dl Total Bilirubin 1.1 mg/dl Aspartate Amino Transf (AST/SGOT) 22 U/L Alanine Aminotransferase (ALT/SGPT) 23 U/L Alkaline Phosphatase 98 U/L Total Protein 6.3 gm/dl Albumin 2.8 gm/dl Globulin 3.5 gm/dl Albumin/Globulin Ratio 0.8 Assessment and Plan 1. Left hip fracture - periprosthetic fracture - to OR today 2. Afib - Eliquis held since 10/25 at 10 pm - dvt ppx with hsq - cont diltiazem 3. CAD - cont coreg - hold off asa for now 4. CHF - appears compensated - cardio following - cont furosemide and lisinopril 5. HTN - BP borderline elevated - will monitor, goal <150 systolic 6. T2DM - acceptable glucose readings on sliding scale 7. CKD IIIb - baseline appears to be ~1.6-2.0 - appears to be at baseline - hyperkalemia resolved - avoid hypotension, avoid NSAIDs, avoid non-urgent contrast and other nephrotoxins 8. ANemia - SHAZIA - will need oral iron supplementation once tolerates po - received 1u prbc pre-op
[2016-10-28] MEDS: SODIUM CHLORIDE 0.9% 1000ML 1,000 ML IV SCH (09:41)
--- NOTE | 2016-10-28 12:54 | PROGRESS NOTE ---
DATE: 10/28/2016 FOLLOWUP VISIT SUBJECTIVE: The patient is an 86-year-old who later today will undergo surgery to repair a periprosthetic fracture that he sustained during a fall. His daughter was in the room today and we discussed the patient's surgery. All questions were answered. The patient is pleasant with unfortunately advanced dementia. OBJECTIVE: GENERAL: He is responsive. VITAL SIGNS: Blood pressure is 145/80 and pulse is regular at 70 beats per minute. He is afebrile. HEENT: Normocephalic. Pupils are equal and reactive to light. Extraocular muscles are intact bilaterally. NECK: The neck veins are flat. Carotids have good upstrokes bilaterally without bruits. Thyroid is nonpalpable. RESPIRATORY: Breath sounds equal bilaterally and clear to auscultation. CARDIOVASCULAR: Heart has an irregular rhythm. Normal S1 and S2. No S3 or S4. No cardiac rubs or murmurs. GASTROINTESTINAL: Abdomen is soft and nontender without organomegaly. EXTREMITIES: Free of edema, digit clubbing, or cyanosis. NEUROLOGIC: Grossly intact. SKIN: Warm to touch. LYMPH NODES: Negative to palpation. IMPRESSIONS: 1. Left periprosthetic hip fracture. 2. Advanced dementia. 3. Diabetes mellitus. 4. Hypertension. 5. History of a thoracic aneurysm evaluated by cardiothoracic surgery 2 years ago and determined to be medical management. RECOMMENDATIONS: We will continue to see the patient postop and help with medical management.
[2016-10-28] MEDS ORDERED: MIDAZOLAM HCL 1 MG/ML 2ML VIAL ONE (13:50)
[2016-10-28] MEDS ORDERED: PROPOFOL IV EMULSION 10 MG/ML 20 ML VIAL IV ONE ×2 (13:52→14:51)
[2016-10-28] MEDS ORDERED: POVIDONE-IODINE OP SOLN 30 ML BTL ONE (14:05)
[2016-10-28] MEDS ORDERED: BACITRACIN 50000 UNIT VIAL ONE (14:05)
--- NOTE | 2016-10-28 14:33 | History & Physical Bridge Note ---
H&P Re-Evaluation Bridge Note: I have examined the patient, reviewed the History & Physical and in the interval since the performance of the History & Physical I have noted the following changes of clinical significance: No changes noted
[2016-10-28] MEDS ORDERED: FENTANYL CITRATE INJ 50 MCG/1 ML 2 ML VIAL ONE (14:44)
[2016-10-28] MEDS ORDERED: NURSING VERBAL MED ORDER STA (14:50)
[2016-10-28] MEDS ORDERED: SUCCINYLCHOLINE CHLORIDE 20 MG/ML 10 ML VIAL IV ONE (14:51)
[2016-10-28] MEDS ORDERED: ROCURONIUM BROMIDE 10 MG/ML 5 ML VIAL ONE (14:51)
[2016-10-28] MEDS ORDERED: LIDOCAINE HCL 2% 2 ML VIAL (20MG/ML) ONE (14:51)
[2016-10-28] MEDS ORDERED: CEFAZOLIN IV 2,000 MG/60 ML D5W IV ONE (14:57)
[2016-10-28] MEDS ORDERED: HYDROmorphone INJ 0.5 MG/0.5 ML SYR IV PRN (15:00)
[2016-10-28] MEDS ORDERED: LABETALOL HCL IV 5 MG/ML 20ML IV PRN (15:00)
[2016-10-28] MEDS ORDERED: ATROPINE SULFATE 0.1 MG/ML 5ML SYR IV PRN (15:00)
[2016-10-28] MEDS ORDERED: ONDANSETRON INJ 2 MG/ML 2 ML VIAL IV PRN ×2 (15:00→17:00)
[2016-10-28] MEDS ORDERED: VASOPRESSIN 20 UNIT/ML VIAL ONE (16:49)
[2016-10-28] MEDS ORDERED: DEXAMETHASONE SOD INJ 4 MG/ML VIAL ONE (16:49)
[2016-10-28] MEDS ORDERED: ONDANSETRON INJ 2 MG/ML 2 ML VIAL ONE (16:49)
[2016-10-28] MEDS ORDERED: EpHEDrine SULFATE 50MG/5ML SYR ONE (16:49)
--- NOTE | 2016-10-28 16:51 | [facility] Post Operative Brief Note ---
Immediate Operative Summary Operative Date Oct 28, 2016. Pre-Operative Diagnosis Left Periprosthetic Femur Fracture Post-Operative Diagnosis Same preoperative diagnosis Procedure(s) Performed Left Open Reduction Internal Fixation Tanna-Prosthetic Femur Fracture Surgeon Dr. Bates Gin Clerk Surgeon(s) Shreya Perez PA-C Estimated Blood Loss 400ml Findings Good meng ingrowth proximal fragment Specimens none Disposition Recovery Room / PACU
[2016-10-28] MEDS ORDERED: SOD PHOSPHATE/SOD BIPHOSPHATE ENEMA 132 ML BTL PR PRN (17:00)
[2016-10-28] MEDS ORDERED: HYDROCODONE/ACETAMOPHEN 5/325MG TAB PO PRN (17:00)
[2016-10-28] MEDS ORDERED: BISACODYL 10 MG SUPP PR PRN (17:00)
[2016-10-28] MEDS ORDERED: METOCLOPRAMIDE HCL INJ 5 MG/ML 2 ML VIAL IV PRN (17:00)
[2016-10-28] MEDS ORDERED: MAGNESIUM HYDROXIDE SUSP 30 ML UDC PO PRN (17:00)
[2016-10-28] MEDS ORDERED: MoRPHine SULFATE 2 MG/ML CARP IV PRN (17:00)
--- NOTE | 2016-10-28 17:03 | DIAGNOSTIC IMAGING REPORT ---
LEFT FEMUR 2 VIEWS ROUTINE CLINICAL HISTORY: ORIF LT PERIPROSTHETIC FX COMPARISON: Left femur radiographs October 26, 2016. Fluoroscopy time: 16 seconds. FINDINGS: 4 fluoroscopic images demonstrate placement of a lateral plate and screws as well as cerclage wires which fixate the periprosthetic left femoral fracture. Fracture alignment has markedly improved and is now near anatomic. Drains are in place. IMPRESSION: Expected findings following internal fixation of the left femoral periprosthetic fracture. Electronically signed by: Abel Mitchell M.D. 10/28/2016 5:01 PM Dictated Date/Time: 10/28/2016 4:59 PM
[2016-10-28] MEDS ORDERED: GLYCOPYRROLATE INJ 0.2 MG/ML VIAL ONE (17:04)
[2016-10-28] MEDS ORDERED: NEOSTIGMINE METHYLSULFATE 5 MG/5 ML SYR ONE (17:04)
--- NOTE | 2016-10-28 17:32 | OPERATIVE REPORT ---
DATE OF OPERATION: 10/26/2016 ADDENDUM: REAL ESTATE CONSULTANT: WILMER Hackett. MrStella Johannacamilamartin was essential in all portions of this very complicated and extensive case. His assistance in positioning, prepping and draping, surgical supplies sterilizer, fracture fixation, wound closure, and dressing application. I attest to the content of the Intraoperative Record and any orders documented therein. Any exceptio ns are noted below.
--- NOTE | 2016-10-28 17:33 | OPERATIVE REPORT ---
DATE OF OPERATION: 10/28/2016 PREOPERATIVE DIAGNOSIS: Periprosthetic femur fracture, left. POSTOPERATIVE DIAGNOSIS: Periprosthetic femur fracture, left. PROCEDURE: Open reduction internal fixation periprosthetic femur fracture, left. SURGEON: Segundo Bates MD WHEEL LACER AND TRUER: Live Perez PA-C ANESTHESIA: General. COMPLICATIONS: None. DESCRIPTION OF PROCEDURE: Following induction of adequate general anesthesia, an extended lateral incision was made over the femur fracture. The fascia was incised throughout the length of the wound and quadriceps was elevated from the lateral aspect of the femur, exposing the fracture. Subperiosteal dissection was used to expose the fracture and a curette and irrigation were utilized to remove clotted blood. Inspection of the prosthesis was found to be well fixed and bony ingrown to the proximal fragment very little of the bony porous coating was visible. Because of this, decision was made to perform an open reduction internal fixation versus a revision to a new bipolar. Initial reduction was carried out with a [employer] bone clamp and a curved [employer] femoral locking plate was flared to fit the lateral aspect of the femur. Provisional fixation with 2 cables was carried out. Check x-rays revealed anatomic reduction of the fracture fragments. The plate was placed in the lateral aspect of the femur at the appropriate level and distal cortical screw was placed to bring the plate to the bone. Following this, using 4 additional distal locking screws and a cancellous bone screw in the greater trochanter as well as 3 additional cerclage cables, the fracture was finally fixed. The wound was thoroughly irrigated with pulsatile irrigation. The vastus lateralis was reapproximated to its anatomic position using #1 Vicryl [id number] sutures and running #1 Vicryl. Hemovac drain had been placed first. Fascia was closed using #1 Vicryl [id number] sutures, subcutaneous tissue was closed using 0 Dexon, skin was closed with david. Sterile dressing of Adaptic, 4 x 4s, ABDs, and foam tape were applied. The patient tolerated the procedure well. I attest to the content of the Intraoperative Record and any orders documented therein. Any exceptio ns are noted below.
[2016-10-28] MEDS ORDERED: FERROUS GLUCONATE 324 MG TAB PO SCH (17:45)
[2016-10-28 17:47] LABS: HEMATOCRIT 25.5 % (42-52)
--- NOTE | 2016-10-28 17:48 | Anesthesiology Progress Note ---
Anesthesia Post Op Note Date & Time Oct 28, 2016 at 17:47 Vital Signs Pain Intensity: 0 Vital Signs Past 12 Hours Date Time Temp Pulse Resp B/P Pulse Ox O2 Delivery O2 Flow Rate FiO2 10/28/16 17:35 70 17 133/74 97 Nasal Cannula 3 10/28/16 17:25 66 18 125/78 95 Nasal Cannula 3 10/28/16 17:17 36.8 63 15 133/71 99 Nasal Cannula 3 10/28/16 12:54 36.7 94 18 101/69 96 10/28/16 11:45 36.2 85 18 132/66 95 10/28/16 11:15 36.7 73 18 134/74 94 10/28/16 10:45 36.9 77 16 132/62 95 10/28/16 10:30 36.6 70 124/72 100 10/28/16 10:15 36.7 75 18 143/56 10/28/16 08:27 156/82 10/28/16 07:37 36.8 75 18 164/71 96 Room Air 10/28/16 07:30 Room Air Notes Mental Status: alert / awake / arousable, participated in evaluation Pt Amnestic to Procedure: Yes Nausea / Vomiting: adequately controlled Pain: adequately controlled Airway Patency, RR, SpO2: stable & adequate BP & HR: stable & adequate Hydration State: stable & adequate Anesthetic Complications: no major complications apparent
[2016-10-28] MEDS ORDERED: IV FLUIDS COMPLETED PRN (18:15)
[2016-10-28] MEDS: POTASSIUM CHLORIDE INJ 10 MEQ in SODIUM CHLORIDE 0.9% 1000ML 1,000 ML IV SCH (20:27)
[2016-10-28] MEDS: ACETAMINOPHEN IV 1,000 MG in EMPTY BAG 0 ML IV SCH (20:29)
[2016-10-28] MEDS ORDERED: NURSING VERBAL MED ORDER ONE (20:30)
[2016-10-28] MEDS: QUETIAPINE FUMARATE 25 MG TAB PO SCH (20:33)
[2016-10-28] MEDS: SENNA 8.6 MG TAB PO SCH (20:33)
[2016-10-28] MEDS: DOCUSATE SODIUM 100 MG CAP PO SCH (20:34)
[2016-10-28] MEDS: CEFAZOLIN IV 1,000 MG in DEXTROSE 5% 50ML 50 ML IV SCH (22:35)
[2016-10-29] MEDS: TRAMADOL HCL 50 MG TAB PO PRN ×2 (00:39→13:02)
[2016-10-29] MEDS: ACETAMINOPHEN IV 1,000 MG in EMPTY BAG 0 ML IV SCH ×2 (01:45→10:16)
[2016-10-29] MEDS: POTASSIUM CHLORIDE INJ 10 MEQ in SODIUM CHLORIDE 0.9% 1000ML 1,000 ML IV SCH ×3 (03:55→21:44)
[2016-10-29 04:27] VITALS: BP 141/77; PULSE 68; TEMP 36.2; O2SAT 92
[2016-10-29] MEDS: CEFAZOLIN IV 1,000 MG in DEXTROSE 5% 50ML 50 ML IV SCH (06:19)
[2016-10-29 07:32] VITALS: BP 152/91; PULSE 92; TEMP 36.3; O2SAT 98
--- NOTE | 2016-10-29 07:43 | Orthopedic Progress Note ---
Orthopedic Progress Note Date of Service Oct 29, 2016. Subjective Post OP Day: 1 Additional Notes: Pt awake but confused. Pleasant. Appears comfortable. Has been "one on one" care through the night but no combativeness etc with an essentially uneventful night. Received his second unit of blood last night. Hgb pending this AM. Objective calves soft nontender, N/V intact, dressing C/D/I, toes mobile, hemovac drainage (20ml latest shift; 180ml to date. ) Confused but pleasant. Follows some commands. Date Time Temp Pulse Resp B/P Pulse Ox O2 Delivery O2 Flow Rate FiO2 10/29/16 07:32 36.3 92 17 152/91 98 Room Air 10/29/16 04:27 36.2 68 18 141/77 92 Room Air 10/28/16 23:30 Room Air 10/28/16 23:23 36.5 73 18 130/76 98 Room Air 10/28/16 22:45 36.7 65 18 133/77 96 10/28/16 22:15 37.0 71 18 144/73 96 10/28/16 21:45 36.7 71 18 140/75 96 10/28/16 21:31 36.7 67 18 144/73 92 10/28/16 21:18 37.1 72 17 142/77 89 Room Air 0.0 10/28/16 21:15 37.1 75 18 142/77 93 10/28/16 20:22 36.4 51 17 128/69 93 Room Air 10/28/16 19:15 36.8 51 18 154/67 93 Room Air 10/28/16 18:44 36.3 67 16 151/46 97 Nasal Cannula 3.0 10/28/16 18:15 96 Nasal Cannula 3.0 10/28/16 18:15 36.8 64 20 136/66 96 Nasal Cannula 3.0 10/28/16 18:00 76 16 143/69 95 Nasal Cannula 3 10/28/16 17:45 37.1 62 20 135/62 95 Nasal Cannula 3 10/28/16 17:35 70 17 133/74 97 Nasal Cannula 3 10/28/16 17:25 66 18 125/78 95 Nasal Cannula 3 10/28/16 17:17 36.8 63 15 133/71 99 Nasal Cannula 3 10/28/16 12:54 36.7 94 18 101/69 96 4/25/17 11:45 36.2 85 18 132/66 95 10/28/16 11:15 36.7 73 18 134/74 94 10/28/16 10:45 36.9 77 16 132/62 95 10/28/16 10:30 36.6 70 124/72 100 10/28/16 10:15 36.7 75 18 143/56 10/28/16 08:27 156/82 10/28/16 07:37 36.8 75 18 164/71 96 Room Air Laboratory Results 24 Hours: Test 10/28/16 17:35 10/29/16 04:44 Hematocrit 25.5 % Hemoglobin 8.1 g/dL Assessment & Plan Assessment: POD 1 s/p ORIF Left Proximal Periprosthetic Femur Fx Plan: Begin PT/OT today. TTWB LLE; Mainly will be bed to chair/transfers. Likely will not understand WB status. H/O being bed to chair over the last several months at his place of residence. Will add Lovenox once daily Will need SNF/Rehab Inhouse Planning Pain Management: Ultram, Morphine, PO Tylenol DVT Prophylaxis: TEDs, SCDs
[2016-10-29 08:10] LABS: HEMATOCRIT 27.9 % (42-52); MEAN CELL VOLUME 94.9 fL (80-100); MEAN CORPUSCULAR HEMOGLOBIN 30.3 pg (25-34); MEAN CORPUSCULAR HGB CONC 31.9 g/dl (32-36); MEAN PLATELET VOLUME 9.4 fL (7.4-10.4); PLATELET COUNT 166 K/uL (130-400); RED BLOOD COUNT 2.94 M/uL (4.7-6.1); WHITE BLOOD COUNT 5.74 K/uL (4.8-10.8)
[2016-10-29] MEDS: HEPARIN SOD 5000 UNIT/0.5 ML CARP SQ SCH ×3 (08:38→23:49)
[2016-10-29] MEDS: DILTIAZEM HCL 30 MG TAB PO SCH (08:44)
[2016-10-29] MEDS: ALLOPURINOL 100 MG TAB PO SCH (08:44)
[2016-10-29] MEDS: PANTOprazole SOD 40 MG TAB PO SCH (08:44)
[2016-10-29] MEDS: AMLODIPINE BESYLATE 5 MG TAB PO SCH (08:44)
[2016-10-29] MEDS: FUROSEMIDE 20 MG TAB PO SCH (08:44)
[2016-10-29] MEDS: VENLAFAXINE HCL 50 MG TAB PO SCH (08:44)
[2016-10-29] MEDS: DOCUSATE SODIUM 100 MG CAP PO SCH ×2 (08:45→21:38)
[2016-10-29] MEDS: CARVEDILOL 3.125 MG TAB PO SCH ×2 (08:45→21:38)
[2016-10-29] MEDS: LISINOPRIL 10 MG TAB PO SCH (08:45)
[2016-10-29] MEDS: INSULIN ASPART 100 UNITS/ML 3 ML PEN SC SCH ×4 (08:49→21:43)
[2016-10-29 09:00] LABS: BUN/CREATININE RATIO 29.8 (10-20); CALCIUM 8.3 mg/dl (8.5-10.1); CREATININE 1.8 mg/dl (0.60-1.40); MAGNESIUM 2.1 mg/dl (1.8-2.4); PHOSPHORUS 4.7 mg/dl (2.5-4.9); POTASSIUM 4.9 mmol/L (3.5-5.1)
[2016-10-29] MEDS ORDERED: ENOXAPARIN 40 MG/0.4 ML SYR SQ SCH (09:00)
[2016-10-29] MEDS ORDERED: ENOXAPARIN 30 MG/0.3 ML SYR SQ SCH (09:00)
--- NOTE | 2016-10-29 09:48 | DIAGNOSTIC IMAGING REPORT ---
RENAL ULTRASOUND CLINICAL HISTORY: Chronic kidney disease. COMPARISON STUDY: None. TECHNIQUE: Sonography of the kidneys and the urinary bladder was performed. FINDINGS: The right kidney was not visualized. There is trace perihepatic fluid. The spleen was at the upper limits of normal for size. The left kidney was partially obscured but measured approximately 9.7 x 4.7 x 4.5 cm. There was no left hydronephrosis. A 1.7 cm cyst arising from the midpole of the left kidney was noted. A Miller catheter was noted within the bladder which was decompressed. IMPRESSION: 1. No left hydronephrosis. 2. Study compromised by suboptimal penetration with partial obscuration of the left kidney. 3. Nonvisualization of the right kidney. 4. Trace perihepatic fluid. Electronically signed by: Abel Mitchell M.D. 10/29/2016 9:46 AM Dictated Date/Time: 10/29/2016 9:44 AM
--- NOTE | 2016-10-29 10:47 | Progress Note ---
Subjective Date of Service: Oct 29, 2016. Subjective Pt evaluation today including: conversation w/ patient, physical exam, chart review, lab review, review of inpatient medication list Having left hip pain. OOBTC this morning. No chest pain, no sob. No abd pain. Ate some breakfast. Pleasantly confused. Review of Systems All Other Systems: Reviewed and Negative Medications Acetaminophen (Tylenol Tab) 650 mg Q4H PRN PO Last administered on 10/27/16 09:30; Admin Dose 650 MG; Start 10/26/16 at 15:30; Stop 11/25/16 at 15:29; Status Future hold Acetaminophen/ Empty Bag (Ofirmev Iv/ Empty Iv Bag 100ml) 100 ml @ 400 mls/hr Q8H IV Last administered on 10/29/16 10:16; Admin Dose 400 MLS/HR; Start at 18:00; Stop 10/29/16 at 17:59 Acetaminophen/ Hydrocodone Bitart 1-2 TABS FOR PAIN 1 TABLET ... Q6H PRN PO; Start 10/28/16 at 17:00; Stop 11/11/16 at 16:59; Status Future hold Allopurinol (Zyloprim Tab) 100 mg QAM PO Last administered on 10/29/16 08:44; Admin Dose 100 MG; Start 10/27/16 at 09:00; Stop 11/26/16 at 08:59 Amlodipine Besylate (Norvasc Tab) 5 mg QAM PO Last administered on 10/29/16 08: 44; Admin Dose 5 MG; Start 10/27/16 at 09:00; Stop 11/26/16 at 08:59 Bisacodyl (Dulcolax Supp) 10 mg DAILY PRN [place]; Start 10/28/16 at 17:00; Stop at 16:59 Carvedilol (Coreg Tab) 3.125 mg BID PO Last administered on 10/29/16 08:45; Admin Dose 3.125 MG; Start 10/26/16 at 21:00; Stop 11/25/16 at 20:59 Dextrose (Dextrose 50% 50ML Syringe) 25-50ML OF 50% DW IV FOR... UD PRN IV; Start 10/26/16 at 18:45; Stop 11/25/16 at 18:44 Diltiazem HCl (Cardizem Tab) 30 mg DAILY PO Last administered on 10/29/16 08:44 ; Admin Dose 30 MG; Start 10/27/16 at 09:00; Stop 11/26/16 at 08:59 Docusate Sodium (coLACE CAP) 100 mg BID PO Last administered on 10/29/16 08:45 ; Admin Dose 100 MG; Start 10/28/16 at 21:00; Stop 11/27/16 at 20:59 Ferrous Sulfate 325 mg 325 mg BIDM PO; Start 10/30/16 at 08:30; Stop 11/29/16 at 08:29 Furosemide (Lasix Tab) 20 mg DAILY PO Last administered on 10/29/16 08:44; Admin Dose 20 MG; Start 10/27/16 at 09:00; Stop 11/26/16 at 08:59 Glucagon (Glucagon Inj) 1 mg UD PRN SQ; Start 10/26/16 at 18:45; Stop 11/25/16 at 18:44 Glucose (Glucose 40% Gel) 15-30 GRAMS 15 GRAMS... UD PRN PO; Start 10/26/16 at 18:45; Stop 11/25/16 at 18:44 Glucose (Glucose Chew Tab) 4-8 Tablets 4 Tabl... UD PRN PO; Start 10/26/16 at 18:45; Stop 11/25/16 at 18:44 Heparin Sodium (Porcine) (Heparin Sq 5000 Unit/0.5ml) 5,000 unit Q8H SQ Last administered on 10/29/16 08:38; Admin Dose 5,000 UNIT; Start 10/26/16 at 16:00 ; Stop 11/25/16 at 15:59 Insulin Aspart (novoLOG ASPART) SLIDING SCALE G... ACHS SC Last administered on 10/29/16 08:49; Admin Dose 2 UNITS; Start 10/28/16 at 21:00; Stop 11/27/16 at 20:59 Lisinopril (Zestril Tab) 10 mg DAILY PO Last administered on 10/29/16 08:45; Admin Dose 10 MG; Start 10/29/16 at 09:00; Stop 11/28/16 at 08:59 Magnesium Hydroxide (Milk Of Magnesia Susp) 30 ml Q6H PRN PO; Start 10/28/16 at 17:00; Stop 11/27/16 at 16:59 Metoclopramide HCl (Reglan Inj) 10 mg Q6H PRN IV; Start 10/28/16 at 17:00; Stop 11/27/16 at 16:59 Miscellaneous (Iv Fluids Completed) 1 ea PRN PRN N/A; Start 10/28/16 at 18:15; Stop 10/28/17 at 18:14 Morphine Sulfate (MoRPHine SULFATE INJ) 2 mg Q4H PRN IV Last administered on 00:11; Admin Dose 2 MG; Start 10/26/16 at 16:15; Stop 11/09/16 at 16:14 Morphine Sulfate (MoRPHine SULFATE INJ) 4 mg Q4H PRN IV; Start 10/26/16 at 16: 15; Stop 11/09/16 at 16:14 Ondansetron HCl (Zofran Inj) 4 mg Q6H PRN IV; Start 10/28/16 at 17:00; Stop at 16:59 Pantoprazole Sodium (Protonix Tab) 40 mg DAILY PO Last administered on 08:44; Admin Dose 40 MG; Start 10/27/16 at 09:00; Stop 11/26/16 at 08:59 Potassium Chloride/Sodium Chloride (KCl Inj/Nss 1000ml) 1,005 ml @ 100 mls/hr Q10H3M IV Last administered on 10/29/16 03:55; Admin Dose 100 MLS/HR; Start at 17:30; Stop 11/27/16 at 17:29 Quetiapine Fumarate (seroQUEL TAB) 25 mg HS PO Last administered on 10/28/16 20 :33; Admin Dose 25 MG; Start 10/26/16 at 21:00; Stop 11/25/16 at 20:59 Senna (Senokot Tab) 17.2 mg HS PO Last administered on 10/28/16 20:33; Admin Dose 17.2 MG; Start 10/28/16 at 21:00; Stop 11/27/16 at 20:59 Sodium Biphosphate/ Sodium Phosphate (Fleet Enema) 132 ml DAILY PRN [place]; Start 10/28/16 at 17:00; Stop 11/27/16 at 16:59 Tramadol HCl (Ultram Tab) @ Q4H PRN PO Last administered on 10/29/16 00:39; Admin Dose 100 MG; Start 10/27/16 at 17:45; Stop 11/26/16 at 17:44 Venlafaxine HCl (effeXOR TAB) 75 mg DAILY PO Last administered on 10/29/16t 08: 44; Admin Dose 75 MG; Start 10/27/16 at 09:00; Stop 11/26/16 at 08:59 Objective Vital Signs Date Time Temp Pulse Resp B/P Pulse Ox O2 Delivery O2 Flow Rate FiO2 10/29/16 07:40 Room Air 10/29/16 07:32 36.3 92 17 152/91 98 Room Air 10/29/16 04:27 36.2 68 18 141/77 92 Room Air 10/28/16 23:30 Room Air 10/28/16 23:23 36.5 73 18 130/76 98 Room Air 10/28/16 22:45 36.7 65 18 133/77 96 10/28/16 22:15 37.0 71 18 144/73 96 10/28/16 21:45 36.7 71 18 140/75 96 10/28/16 21:31 36.7 67 18 144/73 92 10/28/16 21:18 37.1 72 17 142/77 89 Room Air 0.0 10/28/16 21:15 37.1 75 18 142/77 93 10/28/16 20:22 36.4 51 17 128/69 93 Room Air 10/28/16 19:15 36.8 51 18 154/67 93 Room Air 10/28/16 18:44 36.3 67 16 151/46 97 Nasal Cannula 3.0 10/28/16 18:15 96 Nasal Cannula 3.0 10/28/16 18:15 36.8 64 20 136/66 96 Nasal Cannula 3.0 10/28/16 18:00 76 16 143/69 95 Nasal Cannula 3 10/28/16 17:45 37.1 62 20 135/62 95 Nasal Cannula 3 10/28/16 17:35 70 17 133/74 97 Nasal Cannula 3 10/28/16 17:25 66 18 125/78 95 Nasal Cannula 3 10/28/16 17:17 36.8 63 15 133/71 99 Nasal Cannula 3 10/28/16 12:54 36.7 94 18 101/69 96 10/28/16 11:45 36.2 85 18 132/66 95 10/28/16 11:15 36.7 73 18 134/74 94 10/28/16 10:45 36.9 77 16 132/62 95 Physical Exam Comments: nad, alert and awake oriented to self irreg irreg, no murmurs appreciated ctab no w/r/r abd soft nt/nd +BS no LE edema, Left hip dressed pandya in place Laboratory Results Last 24 Hours Test 10/28/16 11:53 10/28/16 17:22 10/28/16 17:35 10/28/16 21:34 Bedside Glucose 111 mg/dl 114 mg/dl 149 mg/dl Hemoglobin 8.1 g/dL Hematocrit 25.5 % Test 10/29/16 07:47 10/29/16 08:18 White Blood Count 5.74 K/uL Red Blood Count 2.94 M/uL Hemoglobin 8.9 g/dL Hematocrit 27.9 % Mean Corpuscular Volume 94.9 fL Mean Corpuscular Hemoglobin 30.3 pg Mean Corpuscular Hemoglobin Concent 31.9 g/dl RDW Standard Deviation 58.5 fL RDW Coefficient of Variation 17.0 % Platelet Count 166 K/uL Mean Platelet Volume 9.4 fL Sodium Level 141 mmol/L Potassium Level 4.9 mmol/L Chloride Level 108 mmol/L Carbon Dioxide Level 21 mmol/L Anion Gap 12.0 mmol/L Blood Urea Nitrogen 54 mg/dl Creatinine 1.80 mg/dl Est Creatinine Clear Calc Drug Dose 26.5 ml/min Estimated GFR () 38.6 Estimated GFR (Non- 33.3 BUN/Creatinine Ratio 29.8 Random Glucose 198 mg/dl Calcium Level 8.3 mg/dl Phosphorus Level 4.7 mg/dl Magnesium Level 2.1 mg/dl Bedside Glucose 217 mg/dl Assessment and Plan 1. Left hip fracture - periprosthetic fracture s/p ORIF POD#1 - pain management - PT/OT for possible rehab vs SNF 2. Afib - Eliquis held since 10/25 at 10 pm - will need to determine when he can be placed back on his Eliquis, to discuss with ortho - rate-controlled - cont coreg 3. CAD - cont coreg - hold off asa for now 4. CHF - appears compensated - cardio following - cont furosemide and lisinopril 5. HTN - BP borderline elevated - will monitor, goal <150 systolic 6. T2DM - acceptable glucose readings on sliding scale 7. CKD IIIb - baseline appears to be ~1.6-2.0 -stable - avoid hypotension, avoid NSAIDs, avoid non-urgent contrast and other nephrotoxins 8. ANemia - start iron supplementation, monitor for constipation - Hb stable post-op, received 2 units pre-op 9. dvt ppx hsq
[2016-10-29 12:05] VITALS: BP 110/69; PULSE 76; TEMP 36.4; O2SAT 99
--- NOTE | 2016-10-29 13:17 | Anesthesiology Progress Note ---
Anesthesia Post Op Note Date & Time Oct 29, 2016 at 13:16 Vital Signs Pain Intensity: 3.0 Vital Signs Past 12 Hours Date Time Temp Pulse Resp B/P Pulse Ox O2 Delivery O2 Flow Rate FiO2 10/29/16 12:05 36.4 76 16 110/69 99 Room Air 10/29/16 07:40 Room Air 10/29/16 07:32 36.3 92 17 152/91 98 Room Air 10/29/16 04:27 36.2 68 18 141/77 92 Room Air Notes Mental Status: alert / awake / arousable, participated in evaluation Pt Amnestic to Procedure: Yes Nausea / Vomiting: adequately controlled Pain: adequately controlled Airway Patency, RR, SpO2: stable & adequate BP & HR: stable & adequate Hydration State: stable & adequate Anesthetic Complications: no major complications apparent
[2016-10-29 15:02] VITALS: BP 112/72; PULSE 60; TEMP 36.2; O2SAT 100
[2016-10-29 16:00] VITALS: O2SAT 100
[2016-10-29] MEDS: QUETIAPINE FUMARATE 25 MG TAB PO SCH (21:39)
[2016-10-29] MEDS: SENNA 8.6 MG TAB PO SCH (21:39)
[2016-10-29 22:53] VITALS: BP 116/67; PULSE 109; TEMP 36.5; O2SAT 91
[2016-10-30] MEDS: TRAMADOL HCL 50 MG TAB PO PRN (00:25)
[2016-10-30 06:57] LABS: HEMATOCRIT 25.1 % (42-52)
[2016-10-30 07:19] VITALS: BP 139/72; PULSE 66; TEMP 36.7; O2SAT 96
--- NOTE | 2016-10-30 07:42 | Orthopedic Progress Note ---
Orthopedic Progress Note Date of Service Oct 30, 2016. Subjective Post OP Day: 2 Additional Notes: Pt confused, h/o dementia, does not know where he is or that he had hip surgery , appears comfortable Objective dressing C/D/I (NS to change when pt back in bed), toes mobile Thigh moderately swollen Date Time Temp Pulse Resp B/P Pulse Ox O2 Delivery O2 Flow Rate FiO2 10/30/16 07:19 36.7 66 18 139/72 96 Room Air 10/29/16 23:50 Room Air 10/29/16 22:53 36.5 109 16 116/67 91 Room Air 10/29/16 16:00 100 Room Air 10/29/16 15:02 36.2 60 16 112/72 100 Room Air 10/29/16 12:05 36.4 76 16 110/69 99 Room Air 10/29/16 07:40 Room Air Laboratory Results 24 Hours: Test 10/29/16 07:47 10/30/16 06:14 Hematocrit 27.9 % 25.1 % Hemoglobin 8.9 g/dL 8.1 g/dL Assessment & Plan Assessment: POD 2 s/p ORIF Left Proximal Periprosthetic Femur Fx Plan: Begin PT/OT today. TTWB LLE; Mainly will be bed to chair/transfers. Likely will not understand WB status. H/O being bed to chair over the last several months at his place of residence. Pt may resume regular Eliquis and ASA Will need SNF/Rehab Inhouse Planning Pain Management: Ultram, Morphine, PO Tylenol DVT Prophylaxis: TEDs, SCDs
[2016-10-30] MEDS: POTASSIUM CHLORIDE INJ 10 MEQ in SODIUM CHLORIDE 0.9% 1000ML 1,000 ML IV SCH (07:58)
[2016-10-30] MEDS: INSULIN ASPART 100 UNITS/ML 3 ML PEN SC SCH ×4 (08:00→21:44)
[2016-10-30 08:43] VITALS: BP 161/56; PULSE 66
[2016-10-30] MEDS: FERROUS SULFATE 325 MG TAB PO SCH ×2 (08:44→17:52)
[2016-10-30] MEDS: DILTIAZEM HCL 30 MG TAB PO SCH (08:44)
[2016-10-30] MEDS: DOCUSATE SODIUM 100 MG CAP PO SCH ×2 (08:44→21:42)
[2016-10-30] MEDS: CARVEDILOL 3.125 MG TAB PO SCH ×2 (08:44→21:42)
[2016-10-30] MEDS: PANTOprazole SOD 40 MG TAB PO SCH (08:45)
[2016-10-30] MEDS: AMLODIPINE BESYLATE 5 MG TAB PO SCH (08:45)
[2016-10-30] MEDS: LISINOPRIL 10 MG TAB PO SCH (08:45)
[2016-10-30] MEDS: ALLOPURINOL 100 MG TAB PO SCH (08:45)
[2016-10-30] MEDS: FUROSEMIDE 20 MG TAB PO SCH (08:45)
[2016-10-30] MEDS: VENLAFAXINE HCL 50 MG TAB PO SCH (08:45)
[2016-10-30] MEDS: HEPARIN SOD 5000 UNIT/0.5 ML CARP SQ SCH ×3 (08:47→23:54)
--- NOTE | 2016-10-30 09:32 | Progress Note ---
Subjective Date of Service: Oct 30, 2016. Subjective Pt evaluation today including: conversation w/ patient, physical exam, review of studies, review of inpatient medication list Feeling fine. Left hip only hurts when he is moving around, otehrwise feels fine. TOlerating diet. No chest pain, no sob. Review of Systems All Other Systems: Reviewed and Negative Medications Acetaminophen (Tylenol Tab) 650 mg Q4H PRN PO Last administered on 10/27/16 09:30; Admin Dose 650 MG; Start 10/26/16 at 15:30; Stop 11/25/16 at 15:29; Status Future hold Acetaminophen/ Hydrocodone Bitart ([place] 5/325 Tab) 1-2 TABS FOR PAIN 1 TABLET ... Q6H PRN PO; Start 10/28/16 at 17:00; Stop 11/11/16 at 16:59; Status Future hold Allopurinol (Zyloprim Tab) 100 mg QAM PO Last administered on 10/30/16 08:45; Admin Dose 100 MG; Start 10/27/16 at 09:00; Stop 11/26/16 at 08:59 Amlodipine Besylate (Norvasc Tab) 5 mg QAM PO Last administered on 10/30/16 08: 45; Admin Dose 5 MG; Start 10/27/16 at 09:00; Stop 11/26/16 at 08:59 Bisacodyl (Dulcolax Supp) 10 mg DAILY PRN [place]; Start 10/28/16 at 17:00; Stop at 16:59 Carvedilol (Coreg Tab) 3.125 mg BID PO Last administered on 10/30/16 08:44; Admin Dose 3.125 MG; Start 10/26/16 at 21:00; Stop 11/25/16 at 20:59 Dextrose (Dextrose 50% 50ML Syringe) 25-50ML OF 50% DW IV FOR... UD PRN IV; Start 10/26/16 at 18:45; Stop 11/25/16 at 18:44 Diltiazem HCl (Cardizem Tab) 30 mg DAILY PO Last administered on 10/30/16 08:44 ; Admin Dose 30 MG; Start 10/27/16 at 09:00; Stop 11/26/16 at 08:59 Docusate Sodium (coLACE CAP) 100 mg BID PO Last administered on 10/30/16 08:44 ; Admin Dose 100 MG; Start 10/28/16 at 21:00; Stop 11/27/16 at 20:59 Ferrous Sulfate (Feosol Tab) 325 mg BIDM PO Last administered on 10/30/16 08:44 ; Admin Dose 325 MG; Start 10/30/16 at 08:30; Stop 11/29/16 at 08:29 Furosemide (Lasix Tab) 20 mg DAILY PO Last administered on 10/30/16 08:45; Admin Dose 20 MG; Start 10/27/16 at 09:00; Stop 11/26/16 at 08:59 Glucagon (Glucagon Inj) 1 mg UD PRN SQ; Start 10/26/16 at 18:45; Stop 11/25/16 at 18:44 Glucose (Glucose 40% Gel) 15-30 GRAMS 15 GRAMS... UD PRN PO; Start 10/26/16 at 18:45; Stop 11/25/16 at 18:44 Glucose (Glucose Chew Tab) 4-8 Tablets 4 Tabl... UD PRN PO; Start 10/26/16 at 18:45; Stop 11/25/16 at 18:44 Heparin Sodium (Porcine) (Heparin Sq 5000 Unit/0.5ml) 5,000 unit Q8H SQ Last administered on 10/30/16 08:47; Admin Dose 5,000 UNIT; Start 10/26/16 at 16:00 ; Stop 11/25/16 at 15:59 Insulin Aspart (novoLOG ASPART) SLIDING SCALE G... ACHS SC Last administered on 10/29/16 21:43; Admin Dose 2 UNITS; Start 10/28/16 at 21:00; Stop 11/27/16 at 20:59 Lisinopril (Zestril Tab) 10 mg DAILY PO Last administered on 10/30/16 08:45; Admin Dose 10 MG; Start 10/29/16 at 09:00; Stop 11/28/16 at 08:59 Magnesium Hydroxide (Milk Of Magnesia Susp) 30 ml Q6H PRN PO; Start 10/28/16 at 17:00; Stop 11/27/16 at 16:59 Metoclopramide HCl (Reglan Inj) 10 mg Q6H PRN IV; Start 10/28/16 at 17:00; Stop 11/27/16 at 16:59 Miscellaneous (Iv Fluids Completed) 1 ea PRN PRN N/A; Start 10/28/16 at 18:15; Stop 10/28/17 at 18:14 Morphine Sulfate (MoRPHine SULFATE INJ) 2 mg Q4H PRN IV Last administered on 00:11; Admin Dose 2 MG; Start 10/26/16 at 16:15; Stop 11/09/16 at 16:14 Morphine Sulfate (MoRPHine SULFATE INJ) 4 mg Q4H PRN IV; Start 10/26/16 at 16: 15; Stop 11/09/16 at 16:14 Ondansetron HCl (Zofran Inj) 4 mg Q6H PRN IV; Start 10/28/16 at 17:00; Stop at 16:59 Pantoprazole Sodium (Protonix Tab) 40 mg DAILY PO Last administered on 08:45; Admin Dose 40 MG; Start 10/27/16 at 09:00; Stop 11/26/16 at 08:59 Quetiapine Fumarate (seroQUEL TAB) 25 mg HS PO Last administered on 10/29/16 21 :39; Admin Dose 25 MG; Start 10/26/16 at 21:00; Stop 11/25/16 at 20:59 Senna (Senokot Tab) 17.2 mg HS PO Last administered on 10/29/16 21:39; Admin Dose 17.2 MG; Start 10/28/16 at 21:00; Stop 11/27/16 at 20:59 Sodium Biphosphate/ Sodium Phosphate (Fleet Enema) 132 ml DAILY PRN [place]; Start 10/28/16 at 17:00; Stop 11/27/16 at 16:59 Tramadol HCl (Ultram Tab) @ Q4H PRN PO Last administered on 10/30/16 00:25; Admin Dose 50 MG; Start 10/27/16 at 17:45; Stop 11/26/16 at 17:44 Venlafaxine HCl (effeXOR TAB) 75 mg DAILY PO Last administered on 10/30/16 08: 45; Admin Dose 75 MG; Start 10/27/16 at 09:00; Stop 11/26/16 at 08:59 Objective Vital Signs Date Time Temp Pulse Resp B/P Pulse Ox O2 Delivery O2 Flow Rate FiO2 10/30/16 08:43 66 161/56 10/30/16 07:20 Room Air 10/30/16 07:19 36.7 66 18 139/72 96 Room Air 10/29/16 23:50 Room Air 10/29/16 22:53 36.5 109 16 116/67 91 Room Air 10/29/16 16:00 100 Room Air 10/29/16 15:02 36.2 60 16 112/72 100 Room Air 10/29/16 12:05 36.4 76 16 110/69 99 Room Air Physical Exam Comments: nad, aox3, anicteric irreg irreg, no murmurs appreciated ctab no w/r/r abd soft nt/nd +BS no LE edema pandya off Laboratory Results Last 24 Hours Test 10/29/16 11:59 10/29/16 17:07 10/29/16 20:37 10/30/16 06:14 Bedside Glucose 197 mg/dl 202 mg/dl 210 mg/dl Hemoglobin 8.1 g/dL Hematocrit 25.1 % Test 10/30/16 08:11 Bedside Glucose 124 mg/dl Assessment and Plan 1. Left hip fracture - periprosthetic fracture s/p ORIF POD#2 - pain management - PT/OT for SNF - voiding trials today, check PVR 2. Afib - Eliquis held since 10/25 at 10 pm - will need to determine when he can be placed back on his Eliquis, to discuss with ortho & cardio - rate-controlled - cont coreg 3. CAD - cont coreg - hold off asa for now 4. CHF - appears compensated - cardio following - cont furosemide and lisinopril 5. HTN - BP borderline elevated - will monitor, goal <150 systolic 6. T2DM - acceptable glucose readings on sliding scale 7. CKD IIIb - baseline appears to be ~1.6-2.0 -stable - avoid hypotension, avoid NSAIDs, avoid non-urgent contrast and other nephrotoxins 8. ANemia - start iron supplementation, monitor for constipation - Hb stable post-op, received 2 units pre-op 9. Dementia - off 1:1 - Q15 min checks 10. dvt ppx hsq
[2016-10-30 15:35] VITALS: BP 137/75; PULSE 87; TEMP 36.6; O2SAT 93
[2016-10-30 16:00] VITALS: O2SAT 93
[2016-10-30] MEDS: QUETIAPINE FUMARATE 25 MG TAB PO SCH (21:43)
[2016-10-30] MEDS: SENNA 8.6 MG TAB PO SCH (21:43)
[2016-10-30 23:33] VITALS: BP 133/77; PULSE 89; TEMP 37; O2SAT 93
[2016-10-31] VITALS (7 sets, daily range): BP systolic 95–131; BP diastolic 60–76; PULSE 87–126; TEMP 36.4–36.9; O2SAT 94–98
[2016-10-31] MEDS: CARVEDILOL 3.125 MG TAB PO SCH ×2 (08:34→20:06)
[2016-10-31] MEDS: DILTIAZEM HCL 30 MG TAB PO SCH (08:34)
[2016-10-31] MEDS: INSULIN ASPART 100 UNITS/ML 3 ML PEN SC SCH ×4 (08:36→20:48)
[2016-10-31 08:59] LABS: HEMATOCRIT 25.8 % (42-52); MEAN CELL VOLUME 95.9 fL (80-100); MEAN CORPUSCULAR HEMOGLOBIN 30.5 pg (25-34); MEAN CORPUSCULAR HGB CONC 31.8 g/dl (32-36); MEAN PLATELET VOLUME 8.8 fL (7.4-10.4); PLATELET COUNT 204 K/uL (130-400); RED BLOOD COUNT 2.69 M/uL (4.7-6.1); WHITE BLOOD COUNT 4.58 K/uL (4.8-10.8)
--- NOTE | 2016-10-31 09:08 | Orthopedic Progress Note ---
Orthopedic Progress Note Date of Service Oct 31, 2016. Subjective Post OP Day: 3 Additional Notes: Dr Miramontes present. Pt had told nursing he was having some chest heaviness. Dr Miramontes examining patient presently. Pt appears comfortable at present time. Objective calves soft nontender, hip located, incision C/D/I Thigh swollen but not tense. Having serous drainage from the drain site and some from the wound itself. Incision without erythema. Date Time Temp Pulse Resp B/P Pulse Ox O2 Delivery O2 Flow Rate FiO2 10/31/16 08:33 36.7 106 16 131/76 97 Room Air 10/31/16 07:31 36.9 87 15 119/72 94 Room Air 10/31/16 07:16 Room Air 10/30/16 23:33 37.0 89 16 133/77 93 Room Air 10/30/16 23:15 Room Air 10/30/16 16:00 93 Room Air 10/30/16 15:35 36.6 87 16 137/75 93 Room Air Laboratory Results 24 Hours: Test 10/31/16 08:36 Hematocrit 25.8 % Hemoglobin 8.2 g/dL Assessment & Plan Assessment: POD 3 s/p ORIF Left Proximal Periprosthetic Femur Fx Plan: PT/OT . TTWB LLE; Mainly will be bed to chair/transfers. Likely will not understand WB status. H/O being bed to chair over the last several months at his place of residence. Pt may resume regular Eliquis and ASA Will need SNF/Rehab Chest heaviness being addressed by Dr. Miramontes Inhouse Planning Pain Management: Ultram, [place], Morphine DVT Prophylaxis: TEDs, SCDs, other (Eliquis) Discharge Planning Discharge Planning: longterm facility
--- NOTE | 2016-10-31 09:09 | Progress Note ---
Subjective Date of Service: Oct 31, 2016. Subjective Pt evaluation today including: conversation w/ patient, physical exam, lab review, review of studies, review of inpatient medication list Patient denies chest pain or heaviness. He does report having some sob, having to take deep breaths in. No pain in the LLE. Otherwise feels comfortable. Review of Systems All Other Systems: Reviewed and Negative Medications Acetaminophen (Tylenol Tab) 650 mg Q4H PRN PO Last administered on 10/27/16 09:30; Admin Dose 650 MG; Start 10/26/16 at 15:30; Stop 11/25/16 at 15:29; Status Future hold Acetaminophen/ Hydrocodone Bitart ([place] 5/325 Tab) 1-2 TABS FOR PAIN 1 TABLET ... Q6H PRN PO; Start 10/28/16 at 17:00; Stop 11/11/16 at 16:59; Status Future hold Allopurinol (Zyloprim Tab) 100 mg QAM PO Last administered on 10/30/16 08:45; Admin Dose 100 MG; Start 10/27/16 at 09:00; Stop 11/26/16 at 08:59 Amlodipine Besylate (Norvasc Tab) 5 mg QAM PO Last administered on 10/30/16 08: 45; Admin Dose 5 MG; Start 10/27/16 at 09:00; Stop 11/26/16 at 08:59 Apixaban (Eliquis Tab) 10 mg BID PO; Start 10/31/16 at 09:00; Stop 11/06/16 at 21 :00; Status UNV Bisacodyl (Dulcolax Supp) 10 mg DAILY PRN [place]; Start 10/28/16 at 17:00; Stop at 16:59 Carvedilol (Coreg Tab) 3.125 mg BID PO Last administered on 10/31/16 08:34; Admin Dose 3.125 MG; Start 10/26/16 at 21:00; Stop 11/25/16 at 20:59 Dextrose (Dextrose 50% 50ML Syringe) 25-50ML OF 50% DW IV FOR... UD PRN IV; Start 10/26/16 at 18:45; Stop 11/25/16 at 18:44 Diltiazem HCl (Cardizem Tab) 30 mg DAILY PO Last administered on 10/31/16 08:34 ; Admin Dose 30 MG; Start 10/27/16 at 09:00; Stop 11/26/16 at 08:59 Docusate Sodium (coLACE CAP) 100 mg BID PO Last administered on 10/30/16 08:44 ; Admin Dose 100 MG; Start 10/28/16 at 21:00; Stop 11/27/16 at 20:59 Ferrous Sulfate (Feosol Tab) 325 mg BIDM PO Last administered on 10/30/16 17:52 ; Admin Dose 325 MG; Start 10/30/16 at 08:30; Stop 11/29/16 at 08:29 Furosemide (Lasix Tab) 20 mg DAILY PO Last administered on 10/30/16 08:45; Admin Dose 20 MG; Start 10/27/16 at 09:00; Stop 11/26/16 at 08:59 Glucagon (Glucagon Inj) 1 mg UD PRN SQ; Start 10/26/16 at 18:45; Stop 11/25/16 at 18:44 Glucose (Glucose 40% Gel) 15-30 GRAMS 15 GRAMS... UD PRN PO; Start 10/26/16 at 18:45; Stop 11/25/16 at 18:44 Glucose (Glucose Chew Tab) 4-8 Tablets 4 Tabl... UD PRN PO; Start 10/26/16 at 18:45; Stop 11/25/16 at 18:44 Insulin Aspart (novoLOG ASPART) SLIDING SCALE G... ACHS SC Last administered on 10/29/16 21:43; Admin Dose 2 UNITS; Start 10/28/16 at 21:00; Stop 11/27/16 at 20:59 Lisinopril (Zestril Tab) 10 mg DAILY PO Last administered on 10/30/16 08:45; Admin Dose 10 MG; Start 10/29/16 at 09:00; Stop 11/28/16 at 08:59 Magnesium Hydroxide (Milk Of Magnesia Susp) 30 ml Q6H PRN PO; Start 10/28/16 at 17:00; Stop 11/27/16 at 16:59 Metoclopramide HCl (Reglan Inj) 10 mg Q6H PRN IV; Start 10/28/16 at 17:00; Stop 11/27/16 at 16:59 Miscellaneous (Iv Fluids Completed) 1 ea PRN PRN N/A; Start 10/28/16 at 18:15; Stop 10/28/17 at 18:14 Morphine Sulfate (MoRPHine SULFATE INJ) 2 mg Q4H PRN IV Last administered on 00:11; Admin Dose 2 MG; Start 10/26/16 at 16:15; Stop 11/09/16 at 16:14 Morphine Sulfate (MoRPHine SULFATE INJ) 4 mg Q4H PRN IV; Start 10/26/16 at 16: 15; Stop 11/09/16 at 16:14 Ondansetron HCl (Zofran Inj) 4 mg Q6H PRN IV; Start 10/28/16 at 17:00; Stop at 16:59 Pantoprazole Sodium (Protonix Tab) 40 mg DAILY PO Last administered on 08:45; Admin Dose 40 MG; Start 10/27/16 at 09:00; Stop 11/26/16 at 08:59 Quetiapine Fumarate (seroQUEL TAB) 25 mg HS PO Last administered on 10/30/16 21 :43; Admin Dose 25 MG; Start 10/26/16 at 21:00; Stop 11/25/16 at 20:59 Senna (Senokot Tab) 17.2 mg HS PO Last administered on 10/29/16 21:39; Admin Dose 17.2 MG; Start 10/28/16 at 21:00; Stop 11/27/16 at 20:59 Sodium Biphosphate/ Sodium Phosphate (Fleet Enema) 132 ml DAILY PRN [place]; Start 10/28/16 at 17:00; Stop 11/27/16 at 16:59 Tramadol HCl (Ultram Tab) @ Q4H PRN PO Last administered on 10/30/16 00:25; Admin Dose 50 MG; Start 10/27/16 at 17:45; Stop 11/26/16 at 17:44 Venlafaxine HCl (effeXOR TAB) 75 mg DAILY PO Last administered on 10/30/16 08: 45; Admin Dose 75 MG; Start 10/27/16 at 09:00; Stop 11/26/16 at 08:59 Objective Vital Signs Date Time Temp Pulse Resp B/P Pulse Ox O2 Delivery O2 Flow Rate FiO2 10/31/16 08:33 36.7 106 16 131/76 97 Room Air 10/31/16 07:31 36.9 87 15 119/72 94 Room Air 10/31/16 07:16 Room Air 10/30/16 23:33 37.0 89 16 133/77 93 Room Air 10/30/16 23:15 Room Air 10/30/16 16:00 93 Room Air 10/30/16 15:35 36.6 87 16 137/75 93 Room Air Physical Exam Comments: nad, awake and answering questions, pleasantly confused irreg irreg, no murmurs appreciated bibasilar rhonchi, no wheezing abd soft nd +BS, suprapubic fullness LLE 1+ edema, no RLE edema Laboratory Results Last 24 Hours Test 10/30/16 12:20 10/30/16 17:03 10/30/16 20:30 10/31/16 08:10 Bedside Glucose 140 mg/dl 101 mg/dl 130 mg/dl 133 mg/dl Test 10/31/16 08:36 White Blood Count 4.58 K/uL Red Blood Count 2.69 M/uL Hemoglobin 8.2 g/dL Hematocrit 25.8 % Mean Corpuscular Volume 95.9 fL Mean Corpuscular Hemoglobin 30.5 pg Mean Corpuscular Hemoglobin Concent 31.8 g/dl RDW Standard Deviation 59.8 fL RDW Coefficient of Variation 17.3 % Platelet Count 204 K/uL Mean Platelet Volume 8.8 fL Assessment and Plan 1. Left hip fracture - periprosthetic fracture s/p ORIF POD#3 - pain management - PT/OT for SNF - some PVR in the 200s 2. Afib - resume Eliquis today, stop hsq dvt ppx - HR 108 prior to AM meds, will monitor - give coreg and diltiazem now 3. CAD - cont coreg - hold off asa for now 4. CHF - appears compensated, will check CXR - cardio following - cont furosemide and lisinopril - await CXR if patient needs increased dose of lasix 5. HTN - BP borderline elevated - will monitor, goal <150 systolic 6. T2DM - acceptable glucose readings on sliding scale 7. CKD IIIb - baseline appears to be ~1.6-2.0 -stable - avoid hypotension, avoid NSAIDs, avoid non-urgent contrast and other nephrotoxins 8. ANemia - start iron supplementation, monitor for constipation - Hb stable post-op, received 2 units pre-op 9. Dementia - confused at baseline - Q15 min checks
--- NOTE | 2016-10-31 09:59 | DIAGNOSTIC IMAGING REPORT ---
CHEST ONE VIEW PORTABLE HISTORY: dyspnea COMPARISON: Chest 10/26/2016. FINDINGS: The cardiac silhouette remains enlarged. Trace bilateral pleural effusions. No evidence for pulmonary edema. Peripheral and basilar interstitial thickening is again noted. This is likely chronic. No new focal lung consolidations to suggest pneumonia. No pneumothorax. Small nodular density within the periphery of the left lower lobe favors a nipple shadow. IMPRESSION: Cardiomegaly and trace bilateral pleural effusions. No evidence for pulmonary edema at this time. Electronically signed by: Damir Moura M.D. 10/31/2016 9:57 AM Dictated Date/Time: 10/31/2016 9:55 AM
[2016-10-31] MEDS: FERROUS SULFATE 325 MG TAB PO SCH ×2 (10:33→17:56)
[2016-10-31] MEDS: DOCUSATE SODIUM 100 MG CAP PO SCH ×2 (10:33→20:08)
[2016-10-31] MEDS: VENLAFAXINE HCL 50 MG TAB PO SCH (10:33)
[2016-10-31] MEDS: APIXABAN 2.5 MG TAB PO SCH ×2 (10:34→20:22)
[2016-10-31] MEDS: PANTOprazole SOD 40 MG TAB PO SCH (10:34)
[2016-10-31] MEDS: AMLODIPINE BESYLATE 5 MG TAB PO SCH (10:34)
[2016-10-31] MEDS: LISINOPRIL 10 MG TAB PO SCH (10:34)
[2016-10-31] MEDS: FUROSEMIDE 20 MG TAB PO SCH (10:34)
[2016-10-31] MEDS: ALLOPURINOL 100 MG TAB PO SCH (10:34)
--- NOTE | 2016-10-31 14:33 | PROGRESS NOTE ---
DATE: 10/31/2016 FOLLOWUP VISIT SUBJECTIVE: The patient is an 86-year-old male patient whom I saw earlier in his admission. I provided preoperative clearance for a periprosthetic hip fracture which was completed successfully the other day. This patient has advanced dementia. He does have heart disease including atrial fibrillation along with diabetes and hypertension. This morning, he was lethargic and fatigued. The nurses encouraged him to get out of bed and he said he had some soreness around his chest and did not feel well. He was put back into the bed and an EKG was obtained that shows atrial fibrillation and no acute changes. A stat troponin was done with the result being 0.1. After the patient was allowed to go back to bed, he has slept most of the day. When I went in to see him, he was comfortable and has no complaints other than his tailbone is sore. OBJECTIVE: VITAL SIGNS: Blood pressure 130/76, pulse is irregular at 100 beats per minute. He is afebrile. GENERAL: He is alert. HEENT: Normocephalic. Pupils are equal and reactive to light. Extraocular muscles are intact bilaterally. NECK: The neck veins are flat. Carotids have good upstrokes bilaterally without bruits. Thyroid is nonpalpable. RESPIRATORY: Breath sounds equal bilaterally and clear to auscultation. CARDIOVASCULAR: Heart has an irregular rhythm. Normal S1, S2, no S3, S4. No cardiac rubs or murmurs. GASTROINTESTINAL: Abdomen is soft, nontender without organomegaly. EXTREMITIES: Free of edema, digit clubbing, or cyanosis. NEUROLOGIC: Grossly intact. SKIN: Warm to touch. LYMPH NODES: Negative to palpation. IMPRESSION: 1. Atypical chest discomfort in an elderly gentleman with advanced dementia. 2. Persistent atrial fibrillation. 3. 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 RECOMMENDATIONS: I do not believe any additional cardiac testing is indicated at this time. I think he can remain on a regular medical floor until discharged to whatever rehab he can tolerate. From our standpoint, he can be discharged when he is ready from a surgical standpoint. JUAREZ
[2016-10-31] MEDS: QUETIAPINE FUMARATE 25 MG TAB PO SCH (20:08)
[2016-10-31] MEDS: SENNA 8.6 MG TAB PO SCH (20:09)
[2016-10-31] MEDS: TRAMADOL HCL 50 MG TAB PO PRN (20:13)
[2016-10-31] MEDS: BOOST GLUCOSE CONTROL PO SCH (20:20)
[2016-11-01 06:58] LABS: HEMATOCRIT 27.4 % (42-52); MEAN CELL VOLUME 96.5 fL (80-100); MEAN CORPUSCULAR HEMOGLOBIN 30.3 pg (25-34); MEAN CORPUSCULAR HGB CONC 31.4 g/dl (32-36); MEAN PLATELET VOLUME 9.2 fL (7.4-10.4); PLATELET COUNT 233 K/uL (130-400); RED BLOOD COUNT 2.84 M/uL (4.7-6.1); WHITE BLOOD COUNT 5.62 K/uL (4.8-10.8)
[2016-11-01 07:09] VITALS: BP 120/87; PULSE 136; TEMP 36.6; O2SAT 92
[2016-11-01] MEDS ORDERED: CRD30 PO (07:23)
[2016-11-01] MEDS ORDERED: MOMLX PO (07:23)
[2016-11-01] MEDS ORDERED: FRRS300 PO (07:23)
[2016-11-01] MEDS ORDERED: CRG3125 PO (07:23)
[2016-11-01] MEDS ORDERED: ELQ25 PO (07:23)
[2016-11-01] MEDS ORDERED: ULT50X PO (07:24)
[2016-11-01] MEDS ORDERED: HYDR-5688 PO (07:24)
[2016-11-01 07:29] LABS: BUN/CREATININE RATIO 35.5 (10-20); CALCIUM 8.4 mg/dl (8.5-10.1); CREATININE 1.7 mg/dl (0.60-1.40); MAGNESIUM 2.4 mg/dl (1.8-2.4); PHOSPHORUS 2.6 mg/dl (2.5-4.9)
[2016-11-01] MEDS: INSULIN ASPART 100 UNITS/ML 3 ML PEN SC SCH ×4 (08:00→21:03)
--- NOTE | 2016-11-01 08:05 | Orthopedic Progress Note ---
Orthopedic Progress Note Date of Service Nov 01, 2016. Subjective Post OP Day: 4 Denies: complaints Additional Notes: NO COMPLAINTS PLEASNALT CONFUSED Objective hip located, toes mobile THIGH MOD SWOLLEN DRESSING ON AND DRY Date Time Temp Pulse Resp B/P Pulse Ox O2 Delivery O2 Flow Rate FiO2 11/01/16 07:09 36.6 136 20 120/87 92 Room Air 10/31/16 23:52 108 10/31/16 23:20 36.4 126 18 107/60 94 Room Air 10/31/16 20:01 107 95/61 10/31/16 19:32 Room Air 10/31/16 16:00 98 Room Air 10/31/16 15:21 36.5 101 17 104/65 98 Room Air 10/31/16 08:33 36.7 106 16 131/76 97 Room Air Laboratory Results 24 Hours: Test 10/31/16 08:36 11/01/16 06:30 Hematocrit 25.8 % 27.4 % Hemoglobin 8.2 g/dL 8.6 g/dL Assessment & Plan Assessment: POD 4 s/p ORIF Left Proximal Periprosthetic Femur Fx Plan: PT/OT . TTWB LLE; Mainly will be bed to chair/transfers. Likely will not understand WB status. H/O being bed to chair over the last several months at his place of residence. Pt may resume regular Eliquis and ASA Will need SNF/Rehab WILL SIGN OFF PER GERIATRIC FX PROTOCOL STABLE FOR ECF Inhouse Planning Pain Management: Ultram, [place], Morphine DVT Prophylaxis: TEDs, SCDs, other (Eliquis) Discharge Planning Discharge Planning: half-way facility
[2016-11-01] MEDS: CARVEDILOL 3.125 MG TAB PO SCH ×2 (09:11→21:00)
[2016-11-01] MEDS: APIXABAN 2.5 MG TAB PO SCH ×2 (09:11→21:01)
[2016-11-01] MEDS: DILTIAZEM HCL 30 MG TAB PO SCH (09:11)
[2016-11-01] MEDS: ALLOPURINOL 100 MG TAB PO SCH (09:11)
[2016-11-01] MEDS: FERROUS SULFATE 325 MG TAB PO SCH ×2 (09:12→18:21)
[2016-11-01] MEDS: DOCUSATE SODIUM 100 MG CAP PO SCH ×2 (09:12→20:59)
[2016-11-01] MEDS: FUROSEMIDE 20 MG TAB PO SCH (09:13)
[2016-11-01] MEDS: PANTOprazole SOD 40 MG TAB PO SCH (09:13)
[2016-11-01] MEDS: VENLAFAXINE HCL 50 MG TAB PO SCH (09:14)
[2016-11-01] MEDS: LISINOPRIL 5 MG TAB PO SCH (09:24)
[2016-11-01] MEDS: BOOST GLUCOSE CONTROL PO SCH ×2 (10:22→20:58)
--- NOTE | 2016-11-01 13:17 | Progress Note ---
Subjective Date of Service: Nov 01, 2016. Subjective Pt evaluation today including: conversation w/ patient, physical exam, lab review, review of studies, review of inpatient medication list Feels well today. No chest pain, no sob. c/o left hip pain when he moves. Otehrwise, tolerating diet. Review of Systems All Other Systems: Reviewed and Negative Medications Acetaminophen (Tylenol Tab) 650 mg Q4H PRN PO Last administered on 10/27/16 09:30; Admin Dose 650 MG; Start 10/26/16 at 15:30; Stop 11/25/16 at 15:29; Status Future hold Acetaminophen/ Hydrocodone Bitart ([place] 5/325 Tab) 1-2 TABS FOR PAIN 1 TABLET ... Q6H PRN PO Last administered on 10/31/16 16:10; Admin Dose 2 TAB; Start at 17:00; Stop 11/11/16 at 16:59; Status Future hold Allopurinol (Zyloprim Tab) 100 mg QAM PO Last administered on 11/01/16 09:11; Admin Dose 100 MG; Start 10/27/16 at 09:00; Stop 11/26/16 at 08:59 Apixaban (Eliquis Tab) 10 mg BID PO Last administered on 11/01/16 09:11; Admin Dose 10 MG; Start 10/31/16 at 09:00; Stop 11/06/16 at 21:00 Bisacodyl (Dulcolax Supp) 10 mg DAILY PRN [place]; Start 10/28/16 at 17:00; Stop at 16:59 Carvedilol (Coreg Tab) 3.125 mg BID PO Last administered on 11/01/16 09:11; Admin Dose 3.125 MG; Start 10/26/16 at 21:00; Stop 11/25/16 at 20:59 Dextrose (Dextrose 50% 50ML Syringe) 25-50ML OF 50% DW IV FOR... UD PRN IV; Start 10/26/16 at 18:45; Stop 11/25/16 at 18:44 Diltiazem HCl (Cardizem Tab) 30 mg DAILY PO Last administered on 11/01/16 09:11 ; Admin Dose 30 MG; Start 10/27/16 at 09:00; Stop 11/26/16 at 08:59 Docusate Sodium (coLACE CAP) 100 mg BID PO Last administered on 11/01/16 09:12 ; Admin Dose 100 MG; Start 10/28/16 at 21:00; Stop 11/27/16 at 20:59 Enteral Nutritional Formula (Boost Glucose Control) 1 can BID PO Last administered on 11/01/16 10:22; Admin Dose 1 CAN; Start 10/31/16 at 21:00; Stop 11/30/16 at 20:59 Ferrous Sulfate (Feosol Tab) 325 mg BIDM PO Last administered on 11/01/16 09:12 ; Admin Dose 325 MG; Start 10/30/16 at 08:30; Stop 11/29/16 at 08:29 Furosemide (Lasix Tab) 20 mg DAILY PO Last administered on 11/01/16 09:13; Admin Dose 20 MG; Start 10/27/16 at 09:00; Stop 11/26/16 at 08:59 Glucagon (Glucagon Inj) 1 mg UD PRN SQ; Start 10/26/16 at 18:45; Stop 11/25/16 at 18:44 Glucose (Glucose 40% Gel) 15-30 GRAMS 15 GRAMS... UD PRN PO; Start 10/26/16 at 18:45; Stop 11/25/16 at 18:44 Glucose (Glucose Chew Tab) 4-8 Tablets 4 Tabl... UD PRN PO; Start 10/26/16 at 18:45; Stop 11/25/16 at 18:44 Insulin Aspart (novoLOG ASPART) SLIDING SCALE G... ACHS SC Last administered on 11/01/16 13:19; Admin Dose 2 UNITS; Start 10/28/16 at 21:00; Stop 11/27/16 at 20:59 Lisinopril (Zestril Tab) 5 mg QAM PO Last administered on 11/01/16 09:24; Admin Dose 5 MG; Start 11/01/16 at 09:00; Stop 12/01/16 at 08:59 Magnesium Hydroxide (Milk Of Magnesia Susp) 30 ml Q6H PRN PO; Start 10/28/16 at 17:00; Stop 11/27/16 at 16:59 Metoclopramide HCl (Reglan Inj) 10 mg Q6H PRN IV; Start 10/28/16 at 17:00; Stop 11/27/16 at 16:59 Miscellaneous (Iv Fluids Completed) 1 ea PRN PRN N/A; Start 10/28/16 at 18:15; Stop 10/28/17 at 18:14 Morphine Sulfate (MoRPHine SULFATE INJ) 2 mg Q4H PRN IV Last administered on 00:11; Admin Dose 2 MG; Start 10/26/16 at 16:15; Stop 11/09/16 at 16:14 Morphine Sulfate (MoRPHine SULFATE INJ) 4 mg Q4H PRN IV; Start 10/26/16 at 16: 15; Stop 11/09/16 at 16:14 Ondansetron HCl (Zofran Inj) 4 mg Q6H PRN IV; Start 10/28/16 at 17:00; Stop at 16:59 Pantoprazole Sodium (Protonix Tab) 40 mg DAILY PO Last administered on 09:13; Admin Dose 40 MG; Start 10/27/16 at 09:00; Stop 11/26/16 at 08:59 Quetiapine Fumarate (seroQUEL TAB) 25 mg HS PO Last administered on 10/31/16 20 :08; Admin Dose 25 MG; Start 10/26/16 at 21:00; Stop 11/25/16 at 20:59 Senna (Senokot Tab) 17.2 mg HS PO Last administered on 10/31/16 20:09; Admin Dose 17.2 MG; Start 10/28/16 at 21:00; Stop 11/27/16 at 20:59 Sodium Biphosphate/ Sodium Phosphate (Fleet Enema) 132 ml DAILY PRN [place]; Start 10/28/16 at 17:00; Stop 11/27/16 at 16:59 Tramadol HCl (Ultram Tab) @ Q4H PRN PO Last administered on 10/31/16 20:13; Admin Dose 100 MG; Start 10/27/16 at 17:45; Stop 11/26/16 at 17:44 Venlafaxine HCl (effeXOR TAB) 75 mg DAILY PO Last administered on 11/01/16 09: 14; Admin Dose 75 MG; Start 10/27/16 at 09:00; Stop 11/26/16 at 08:59 Objective Vital Signs Date Time Temp Pulse Resp B/P Pulse Ox O2 Delivery O2 Flow Rate FiO2 11/01/16 07:30 Room Air 11/01/16 07:09 36.6 136 20 120/87 92 Room Air 10/31/16 23:52 108 10/31/16 23:20 36.4 126 18 107/60 94 Room Air 10/31/16 20:01 107 95/61 10/31/16 19:32 Room Air 10/31/16 16:00 98 Room Air 10/31/16 15:21 36.5 101 17 104/65 98 Room Air Physical Exam Comments: nad, alert and awake, pleasantly confused (baseline) irreg irreg, no murmur sappreciated ctab no w/r/r abd soft nt nd +BS no LE edema Laboratory Results Last 24 Hours Test 10/31/16 13:27 10/31/16 17:11 10/31/16 20:12 11/01/16 06:30 Troponin I 0.091 ng/ml Bedside Glucose 151 mg/dl 164 mg/dl White Blood Count 5.62 K/uL Red Blood Count 2.84 M/uL Hemoglobin 8.6 g/dL Hematocrit 27.4 % Mean Corpuscular Volume 96.5 fL Mean Corpuscular Hemoglobin 30.3 pg Mean Corpuscular Hemoglobin Concent 31.4 g/dl RDW Standard Deviation 59.9 fL RDW Coefficient of Variation 17.1 % Platelet Count 233 K/uL Mean Platelet Volume 9.2 fL Test 11/01/16 06:40 11/01/16 08:13 11/01/16 12:10 Sodium Level 145 mmol/L Potassium Level 4.0 mmol/L Chloride Level 110 mmol/L Carbon Dioxide Level 27 mmol/L Anion Gap 8.0 mmol/L Blood Urea Nitrogen 60 mg/dl Creatinine 1.70 mg/dl Est Creatinine Clear Calc Drug Dose 28.1 ml/min Estimated GFR () 41.4 Estimated GFR (Non- 35.7 BUN/Creatinine Ratio 35.5 Random Glucose 140 mg/dl Calcium Level 8.4 mg/dl Phosphorus Level 2.6 mg/dl Magnesium Level 2.4 mg/dl Bedside Glucose 123 mg/dl 194 mg/dl Assessment and Plan 1. Left hip fracture - periprosthetic fracture s/p ORIF POD#4 - pain management - PT/OT for SNF 2. Afib - resume Eliquis - cont diltiazem and coreg 3. CAD - cont coreg - hold off asa for now 4. CHF - appears compensated - cardio following - cont furosemide and lisinopril - CXR no e/o pulmonary edema 5. HTN - BP borderline elevated - will monitor, goal <150 systolic - cont lisinopril 5mg 6. T2DM - acceptable glucose readings on sliding scale 7. CKD IIIb - baseline appears to be ~1.6-2.0 -stable - avoid hypotension, avoid NSAIDs, avoid non-urgent contrast and other nephrotoxins 8. ANemia - start iron supplementation, monitor for constipation - Hb stable post-op, received 2 units pre-op 9. Dementia - confused at baseline AWAITING SNF PLACEMENT.
[2016-11-01 15:21] VITALS: BP 129/87; PULSE 62; TEMP 36.5; O2SAT 92
[2016-11-01] MEDS: TRAMADOL HCL 50 MG TAB PO PRN ×2 (18:25→22:20)
[2016-11-01 20:59] VITALS: BP 97/71; PULSE 71
[2016-11-01] MEDS: SENNA 8.6 MG TAB PO SCH (21:01)
[2016-11-01] MEDS: QUETIAPINE FUMARATE 25 MG TAB PO SCH (21:02)
[2016-11-01 23:05] VITALS: BP 138/46; PULSE 62; TEMP 36.7; O2SAT 98
[2016-11-01 23:45] VITALS: PULSE 92
[2016-11-02] MEDS: TRAMADOL HCL 50 MG TAB PO PRN ×2 (07:24→19:20)
[2016-11-02 07:37] VITALS: BP 134/66; PULSE 104; TEMP 36.5; O2SAT 94
[2016-11-02] MEDS: INSULIN ASPART 100 UNITS/ML 3 ML PEN SC SCH ×4 (08:00→21:00)
[2016-11-02] MEDS: DILTIAZEM HCL 30 MG TAB PO SCH (09:25)
[2016-11-02] MEDS: FUROSEMIDE 20 MG TAB PO SCH (09:25)
[2016-11-02] MEDS: LISINOPRIL 5 MG TAB PO SCH (09:25)
[2016-11-02] MEDS: APIXABAN 2.5 MG TAB PO SCH ×2 (09:25→21:23)
[2016-11-02] MEDS: FERROUS SULFATE 325 MG TAB PO SCH ×2 (09:26→17:46)
[2016-11-02] MEDS: DOCUSATE SODIUM 100 MG CAP PO SCH ×2 (09:26→21:16)
[2016-11-02] MEDS: CARVEDILOL 3.125 MG TAB PO SCH ×2 (09:26→21:22)
[2016-11-02] MEDS: ALLOPURINOL 100 MG TAB PO SCH (09:26)
[2016-11-02] MEDS: VENLAFAXINE HCL 50 MG TAB PO SCH (09:26)
[2016-11-02] MEDS: PANTOprazole SOD 40 MG TAB PO SCH (09:26)
[2016-11-02] MEDS: BOOST GLUCOSE CONTROL PO SCH ×2 (09:30→21:15)
--- NOTE | 2016-11-02 10:32 | Progress Note ---
Subjective Date of Service: Nov 02, 2016. Subjective Pt evaluation today including: conversation w/ patient, physical exam No BM for a few days documented per RN. TOlerating diet. No chest pain, no sob. c/o L hip pain with movement. Review of Systems All Other Systems: Reviewed and Negative Medications Acetaminophen (Tylenol Tab) 650 mg Q4H PRN PO Last administered on 10/27/16 09:30; Admin Dose 650 MG; Start 10/26/16 at 15:30; Stop 11/25/16 at 15:29; Status Future hold Acetaminophen/ Hydrocodone Bitart ([place] 5/325 Tab) 1-2 TABS FOR PAIN 1 TABLET ... Q6H PRN PO Last administered on 10/31/16 16:10; Admin Dose 2 TAB; Start at 17:00; Stop 11/11/16 at 16:59; Status Future hold Allopurinol (Zyloprim Tab) 100 mg QAM PO Last administered on 11/02/16 09:26; Admin Dose 100 MG; Start 10/27/16 at 09:00; Stop 11/26/16 at 08:59 Apixaban (Eliquis Tab) 10 mg BID PO Last administered on 11/02/16 09:25; Admin Dose 10 MG; Start 10/31/16 at 09:00; Stop 11/06/16 at 21:00 Bisacodyl (Dulcolax Supp) 10 mg DAILY PRN [place]; Start 10/28/16 at 17:00; Stop at 16:59 Carvedilol (Coreg Tab) 3.125 mg BID PO Last administered on 11/02/16 09:26; Admin Dose 3.125 MG; Start 10/26/16 at 21:00; Stop 11/25/16 at 20:59 Dextrose (Dextrose 50% 50ML Syringe) 25-50ML OF 50% DW IV FOR... UD PRN IV; Start 10/26/16 at 18:45; Stop 11/25/16 at 18:44 Diltiazem HCl (Cardizem Tab) 30 mg DAILY PO Last administered on 11/02/16 09:25 ; Admin Dose 30 MG; Start 10/27/16 at 09:00; Stop 11/26/16 at 08:59 Docusate Sodium (coLACE CAP) 100 mg BID PO Last administered on 11/02/16 09:26 ; Admin Dose 100 MG; Start 10/28/16 at 21:00; Stop 11/27/16 at 20:59 Enteral Nutritional Formula (Boost Glucose Control) 1 can BID PO Last administered on 11/02/16 09:30; Admin Dose 1 CAN; Start 10/31/16 at 21:00; Stop 11/30/16 at 20:59 Ferrous Sulfate (Feosol Tab) 325 mg BIDM PO Last administered on 11/02/16 09:26 ; Admin Dose 325 MG; Start 10/30/16 at 08:30; Stop 11/29/16 at 08:29 Furosemide (Lasix Tab) 20 mg DAILY PO Last administered on 11/02/16 09:25; Admin Dose 20 MG; Start 10/27/16 at 09:00; Stop 11/26/16 at 08:59 Glucagon (Glucagon Inj) 1 mg UD PRN SQ; Start 10/26/16 at 18:45; Stop 11/25/16 at 18:44 Glucose (Glucose 40% Gel) 15-30 GRAMS 15 GRAMS... UD PRN PO; Start 10/26/16 at 18:45; Stop 11/25/16 at 18:44 Glucose (Glucose Chew Tab) 4-8 Tablets 4 Tabl... UD PRN PO; Start 10/26/16 at 18:45; Stop 11/25/16 at 18:44 Insulin Aspart (novoLOG ASPART) SLIDING SCALE G... ACHS SC Last administered on 11/02/16 12:08; Admin Dose 1 UNITS; Start 10/28/16 at 21:00; Stop 11/27/16 at 20:59 Lisinopril (Zestril Tab) 5 mg QAM PO Last administered on 11/02/16 09:25; Admin Dose 5 MG; Start 11/01/16 at 09:00; Stop 12/01/16 at 08:59 Magnesium Hydroxide (Milk Of Magnesia Susp) 30 ml Q6H PRN PO; Start 10/28/16 at 17:00; Stop 11/27/16 at 16:59 Metoclopramide HCl (Reglan Inj) 10 mg Q6H PRN IV; Start 10/28/16 at 17:00; Stop 11/27/16 at 16:59 Miscellaneous (Iv Fluids Completed) 1 ea PRN PRN N/A; Start 10/28/16 at 18:15; Stop 10/28/17 at 18:14 Morphine Sulfate (MoRPHine SULFATE INJ) 2 mg Q4H PRN IV Last administered on 00:11; Admin Dose 2 MG; Start 10/26/16 at 16:15; Stop 11/09/16 at 16:14 Morphine Sulfate (MoRPHine SULFATE INJ) 4 mg Q4H PRN IV; Start 10/26/16 at 16: 15; Stop 11/09/16 at 16:14 Ondansetron HCl (Zofran Inj) 4 mg Q6H PRN IV; Start 10/28/16 at 17:00; Stop at 16:59 Pantoprazole Sodium (Protonix Tab) 40 mg DAILY PO Last administered on 09:26; Admin Dose 40 MG; Start 10/27/16 at 09:00; Stop 11/26/16 at 08:59 Quetiapine Fumarate (seroQUEL TAB) 25 mg HS PO Last administered on 11/01/16 21 :02; Admin Dose 25 MG; Start 10/26/16 at 21:00; Stop 11/25/16 at 20:59 Senna (Senokot Tab) 17.2 mg HS PO Last administered on 11/01/16 21:01; Admin Dose 17.2 MG; Start 10/28/16 at 21:00; Stop 11/27/16 at 20:59 Sodium Biphosphate/ Sodium Phosphate (Fleet Enema) 132 ml DAILY PRN MA; Start 10/28/16 at 17:00; Stop 11/27/16 at 16:59 Tramadol HCl (Ultram Tab) @ Q4H PRN PO Last administered on 11/02/16 07:24; Admin Dose 50 MG; Start 10/27/16 at 17:45; Stop 11/26/16 at 17:44 Venlafaxine HCl (effeXOR TAB) 75 mg DAILY PO Last administered on 11/02/16 09: 26; Admin Dose 75 MG; Start 10/27/16 at 09:00; Stop 11/26/16 at 08:59 Objective Vital Signs Date Time Temp Pulse Resp B/P Pulse Ox O2 Delivery O2 Flow Rate FiO2 11/02/16 07:37 36.5 104 18 134/66 94 Room Air 11/01/16 23:45 92 11/01/16 23:05 36.7 62 18 138/46 98 Room Air 11/01/16 20:59 71 97/71 11/01/16 15:35 Room Air 11/01/16 15:21 36.5 62 18 129/87 92 Room Air Physical Exam Comments: nad, alert and awake, pleasantly confused irreg irreg, no murmurs appreciated ctab no w/r/r abd soft nt nd +BS no LE edema Laboratory Results Last 24 Hours Test 11/01/16 12:10 11/01/16 16:59 11/01/16 20:45 11/02/16 08:10 Bedside Glucose 194 mg/dl 151 mg/dl 164 mg/dl 151 mg/dl Assessment and Plan 1. Left hip fracture - periprosthetic fracture s/p ORIF POD#5 - pain management - PT/OT for SNF placement 2. Afib - resume Eliquis - rate controlled - cont diltiazem and coreg 3. CAD - cont coreg - hold off asa for now 4. CHF - appears compensated - cardio following - cont furosemide and lisinopril - CXR no e/o pulmonary edema 5. HTN - BP borderline elevated - will monitor, goal <150 systolic - cont lisinopril 5mg 6. T2DM - acceptable glucose readings on sliding scale 7. CKD IIIb - baseline appears to be ~1.6-2.0 -stable - avoid hypotension, avoid NSAIDs, avoid non-urgent contrast and other nephrotoxins 8. ANemia - start iron supplementation, monitor for constipation - Hb stable post-op, received 2 units pre-op 9. Dementia - confused at baseline AWAITING SNF PLACEMENT.
[2016-11-02] MEDS ORDERED: POLYETHYLENE (MIRALAX) 17 GM PACK PO ONE (11:00)
[2016-11-02 15:26] VITALS: BP 110/49; PULSE 71; TEMP 36.3; O2SAT 90
[2016-11-02 21:21] VITALS: BP 133/72; PULSE 71
[2016-11-02] MEDS: SENNA 8.6 MG TAB PO SCH (21:23)
[2016-11-02] MEDS: QUETIAPINE FUMARATE 25 MG TAB PO SCH (21:24)
[2016-11-02 23:00] VITALS: BP 121/66; PULSE 76; TEMP 36.7; O2SAT 96
[2016-11-03 07:09] VITALS: BP 130/80; PULSE 105; TEMP 36.3; O2SAT 98
[2016-11-03 07:19] LABS: CREATININE 1.7 mg/dl (0.60-1.40)
[2016-11-03] MEDS: INSULIN ASPART 100 UNITS/ML 3 ML PEN SC SCH ×4 (08:00→21:09)
[2016-11-03] MEDS: DILTIAZEM HCL 30 MG TAB PO SCH (08:28)
[2016-11-03] MEDS: FERROUS SULFATE 325 MG TAB PO SCH ×2 (08:28→17:12)
[2016-11-03] MEDS: CARVEDILOL 3.125 MG TAB PO SCH ×2 (08:29→21:07)
[2016-11-03] MEDS: DOCUSATE SODIUM 100 MG CAP PO SCH ×2 (08:29→21:07)
[2016-11-03] MEDS: VENLAFAXINE HCL 50 MG TAB PO SCH (08:29)
[2016-11-03] MEDS: APIXABAN 2.5 MG TAB PO SCH (08:29)
[2016-11-03] MEDS: FUROSEMIDE 20 MG TAB PO SCH (08:30)
[2016-11-03] MEDS: ALLOPURINOL 100 MG TAB PO SCH (08:30)
[2016-11-03] MEDS: LISINOPRIL 5 MG TAB PO SCH (08:30)
[2016-11-03] MEDS: PANTOprazole SOD 40 MG TAB PO SCH (08:30)
[2016-11-03] MEDS: BOOST GLUCOSE CONTROL PO SCH ×2 (08:33→21:06)
[2016-11-03 08:34] VITALS: BP 109/74; PULSE 87
[2016-11-03] MEDS: TRAMADOL HCL 50 MG TAB PO PRN ×3 (11:00→21:07)
--- NOTE | 2016-11-03 11:46 | Progress Note ---
Subjective Date of Service: November 03, 2016. Subjective Pt evaluation today including: conversation w/ patient, physical exam, lab review, review of inpatient medication list Pain: mild left hip pain PO Intake: adequate Voiding: no voiding problems patient sitting in chair, pleasant, mild to moderate left hip pain confused, said he went for a drive yesterday and was not able to make it to [facility] explained that we are planning to go to SNF for rehab, CM arranging no issues per RN, eating well, no complaints Review of Systems Constitutional: + fatigue, + weakness Musculoskeletal: + joint pain (left) Neurologic: + memory loss All Other Systems: Reviewed and Negative Medications Current Inpatient Medications Medications (Trade) Dose Ordered Sig/Marv Route Start Time Stop Time Status Last Admin Dose Admin Acetaminophen (Tylenol Tab) 650 mg Q4H PRN PO 10/26/16 15:30 11/25/16 15:29 Future hold 10/27/16 09:30 650 MG Allopurinol (Zyloprim Tab) 100 mg QAM PO 10/27/16 09:00 11/26/16 08:59 11/03/16 08:30 100 MG Furosemide (Lasix Tab) 20 mg DAILY PO 10/27/16 09:00 11/26/16 08:59 11/03/16 08:30 20 MG Pantoprazole Sodium (Protonix Tab) 40 mg DAILY PO 10/27/16 09:00 11/26/16 08:59 11/03/16 08:30 40 MG Quetiapine Fumarate (seroQUEL TAB) 25 mg HS PO 10/26/16 21:00 11/25/16 20:59 11/02/16 21:24 25 MG Venlafaxine HCl (effeXOR TAB) 75 mg DAILY PO 10/27/16 09:00 11/26/16 08:59 11/03/16 08:29 75 MG Diltiazem HCl (Cardizem Tab) 30 mg DAILY PO 10/27/16 09:00 11/26/16 08:59 11/03/16 08:28 30 MG Morphine Sulfate (MoRPHine SULFATE INJ) 2 mg Q4H PRN IV 10/26/16 16:15 11/09/16 16:14 10/27/16 00:11 2 MG Morphine Sulfate (MoRPHine SULFATE INJ) 4 mg Q4H PRN IV 4/23/17 16:15 11/09/16 16:14 Carvedilol (Coreg Tab) 3.125 mg BID PO 10/26/16 21:00 11/25/16 20:59 11/03/16 08:29 3.125 MG Glucose (Glucose 40% Gel) 15-30 GRAMS 15 GRAMS... UD PRN PO 10/26/16 18:45 11/25/16 18:44 Glucose (Glucose Chew Tab) 4-8 Tablets 4 Tabl... UD PRN PO 10/26/16 18:45 11/25/16 18:44 Dextrose (Dextrose 50% 50ML Syringe) 25-50ML OF 50% DW IV FOR... UD PRN IV 10/26/16 18:45 11/25/16 18:44 Glucagon (Glucagon Inj) 1 mg UD PRN SQ 10/26/16 18:45 11/25/16 18:44 Tramadol HCl (Ultram Tab) @ Q4H PRN PO 10/27/16 17:45 11/26/16 17:44 11/03/16 11:00 50 MG Ferrous Sulfate (Feosol Tab) 325 mg BIDM PO 10/30/16 08:30 11/29/16 08:29 11/03/16 08:28 325 MG Acetaminophen/ Hydrocodone Bitart ([place] 5/325 Tab) 1-2 TABS FOR PAIN 1 TABLET ... Q6H PRN PO 10/28/16 17:00 11/11/16 16:59 Future hold 10/31/16 16:10 2 TAB Magnesium Hydroxide (Milk Of Magnesia Susp) 30 ml Q6H PRN PO 10/28/16 17:00 11/27/16 16:59 Bisacodyl (Dulcolax Supp) 10 mg DAILY PRN ID 10/28/16 17:00 11/27/16 16:59 Sodium Biphosphate/ Sodium Phosphate (Fleet Enema) 132 ml DAILY PRN ID 10/28/16 17:00 11/27/16 16:59 Senna (Senokot Tab) 17.2 mg HS PO 10/28/16 21:00 11/27/16 20:59 11/02/16 21:23 17.2 MG Docusate Sodium (coLACE CAP) 100 mg BID PO 10/28/16 21:00 11/27/16 20:59 11/03/16 08:29 100 MG Ondansetron HCl (Zofran Inj) 4 mg Q6H PRN IV 10/28/16 17:00 11/27/16 16:59 Metoclopramide HCl (Reglan Inj) 10 mg Q6H PRN IV 10/28/16 17:00 11/27/16 16:59 Miscellaneous (Iv Fluids Completed) 1 ea PRN PRN N/A 10/28/16 18:15 10/28/17 18:14 Insulin Aspart (novoLOG ASPART) SLIDING SCALE G... ACHS SC 10/28/16 21:00 11/27/16 20:59 11/02/16 17:48 1 UNITS Apixaban (Eliquis Tab) 10 mg BID PO 10/31/16 09:00 11/06/16 21:00 11/03/16 08:29 10 MG Enteral Nutritional Formula (Boost Glucose Control) 1 can BID PO 10/31/16 21:00 11/30/16 20:59 11/03/16 08:33 1 CAN Lisinopril (Zestril Tab) 5 mg QAM PO 11/01/16 09:00 12/01/16 08:59 11/03/16 08:30 5 MG Objective Vital Signs Date Time Temp Pulse Resp B/P Pulse Ox O2 Delivery O2 Flow Rate FiO2 11/03/16 08:34 87 109/74 11/03/16 07:09 36.3 105 15 130/80 98 Room Air 11/03/16 07:05 Room Air 11/02/16 23:45 Room Air 11/02/16 23:00 36.7 76 16 121/66 96 Room Air 11/02/16 21:21 71 133/72 11/02/16 20:27 Room Air 11/02/16 15:26 36.3 71 20 110/49 90 Room Air Physical Exam General Appearance: WD/WN, no apparent distress Eyes: normal inspection, EOMI, sclerae normal ENT: normal ENT inspection, hearing grossly normal, pharynx normal Neck: supple, no adenopathy, no JVD, trachea midline Respiratory/Chest: chest non-tender, lungs clear, normal breath sounds, no respiratory distress, no accessory muscle use Cardiovascular: regular rate, rhythm, no edema, no gallop, no JVD, no murmur Abdomen: normal bowel sounds, non tender, soft, no organomegaly Extremities: + pertinent finding (left hip pain) 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 Left hip fracture - periprosthetic fracture s/p ORIF POD # 6 - pain controlled with [place] - PT/OT for SNF placement 2. Afib - resume Eliquis 10mg - rate controlled - cont diltiazem and coreg 3. CAD - cont coreg - can resume Aspirin 4. CHF - cont furosemide and lisinopril - CXR no e/o pulmonary edema 5. HTN - BP borderline elevated - will monitor, goal <150 systolic - cont lisinopril 5mg, Coreg, Diltiazem 6. T2DM - acceptable glucose readings on sliding scale 7. CKD IIIb - baseline appears to be ~1.6-2.0 -stable, Cr 1.7 today - avoid hypotension, avoid NSAIDs, avoid non-urgent contrast and other nephrotoxins 8. ANemia - start iron supplementation, monitor for constipation - Hb stable post-op, received 2 units pre-op 9. Dementia - confused at baseline AWAITING SNF PLACEMENT.
[2016-11-03 15:02] VITALS: BP 117/49; PULSE 96; TEMP 36.6; O2SAT 94
[2016-11-03 21:03] VITALS: BP 127/63; PULSE 73
[2016-11-03] MEDS: SENNA 8.6 MG TAB PO SCH (21:07)
[2016-11-03] MEDS: QUETIAPINE FUMARATE 25 MG TAB PO SCH (21:07)
[2016-11-03 22:55] VITALS: BP 109/82; PULSE 85; TEMP 36.8; O2SAT 96
[2016-11-04 05:37] LABS: HEMATOCRIT 27.3 % (42-52); MEAN CELL VOLUME 97.5 fL (80-100); MEAN CORPUSCULAR HEMOGLOBIN 29.3 pg (25-34); MEAN PLATELET VOLUME 8.4 fL (7.4-10.4); PLATELET COUNT 342 K/uL (130-400); WHITE BLOOD COUNT 5.65 K/uL (4.8-10.8)
[2016-11-04 07:08] VITALS: BP 141/77; PULSE 112; TEMP 36.6; O2SAT 91
[2016-11-04] MEDS: INSULIN ASPART 100 UNITS/ML 3 ML PEN SC SCH ×2 (08:00→12:43)
[2016-11-04 08:30] VITALS: BP 128/80; PULSE 101
[2016-11-04] MEDS: DILTIAZEM HCL 30 MG TAB PO SCH (08:48)
[2016-11-04] MEDS: FERROUS SULFATE 325 MG TAB PO SCH (08:48)
[2016-11-04] MEDS: BOOST GLUCOSE CONTROL PO SCH (08:48)
[2016-11-04] MEDS: CARVEDILOL 3.125 MG TAB PO SCH (08:49)
[2016-11-04] MEDS: DOCUSATE SODIUM 100 MG CAP PO SCH (08:49)
[2016-11-04] MEDS: FUROSEMIDE 20 MG TAB PO SCH (08:49)
[2016-11-04] MEDS: VENLAFAXINE HCL 50 MG TAB PO SCH (08:49)
[2016-11-04] MEDS: LISINOPRIL 5 MG TAB PO SCH (08:50)
[2016-11-04] MEDS: ALLOPURINOL 100 MG TAB PO SCH (08:50)
[2016-11-04] MEDS: PANTOprazole SOD 40 MG TAB PO SCH (08:50)
[2016-11-04] MEDS ORDERED: APIXABAN 2.5 MG TAB PO SCH (09:00)
[2016-11-04] MEDS: TRAMADOL HCL 50 MG TAB PO PRN (10:18)
[2016-11-04] MEDS ORDERED: ELQ25 PO (11:46)
[2016-11-04] MEDS ORDERED: ASPI-589 PO (11:46)
--- NOTE | 2016-11-04 11:51 | Discharge Instructions ---
Discharge Instructions Date of Service November 04, 2016. Admission Reason for Admission: Lt Hip Fracture Discharge Discharge Diagnosis / Problem: Left hip fracture, dementia, chronic atrial fibrillation, sick sinus Discharge Goals Goal(s): Improve function, Increase independence Activity Recommendations Activity Level: Assistance Required Therapies: Physical Therapy, Occupational Therapy Weightbearing Status: Left weightbearing (as tolerated) Lifting Limitations: none Exercise/Sports Limitations: as tolerated Shower/Bathe: no limitations . Additional Information Patient informed of condition: Yes Advance Directives: Yes DNR: Yes Level of Care: Skilled Communicable Disease: No Prognosis: Improving Oxygen at (LPM): no Instructions / Follow-Up Instructions / Follow-Up Medications: please refer to list - Atrial fibrillation: please note that the patient takes Coreg 3.125mg BID as well as diltiazem 30mg (only in the morning), takes Eliquis for anticoagulation - Hip fracture: POD # 8, doing well, continue therapy and work towards independence, was living independently prior to admission FOLLOW UP - physician at SNF this week Current Hospital Diet Patient's current hospital diet: Diabetes Type 2 Diet, AHA Diet (Heart Healthy) Discharge Diet Recommended Diet: AHA Diet (Heart Healthy), Diabetes Type 2 Diet Procedures Procedures Performed: Left Open Reduction Internal Fixation Tanna-Prosthetic Femur Fracture Pending Studies Studies pending at discharge: no Physician Orders On Transfer Vital Signs: per protocol POLST Discussion: Not Applicable Medical Emergencies . Who to Call and When: Medical Emergencies: If at any time you feel your situation is an emergency, please call 911 immediately. . Non-Emergent Contact Non-Emergency issues call your: Primary Care Provider Call Non-Emergent contact if: you have a fever, your pain is not controlled, you have any medication questions . . "Provider Documentation" section prepared by Yunier Trevino. . Esl Instructional Assistant Recommendations Esl Instructional Assistant Recommendations: [facility] DISCHARGE INSTRUCTIONS: HIP FRACTURE SELF CARE INSTRUCTIONS: A. You are to ambulate with a walker or crutches for approximately 6 weeks. B. You will be restricted to moving from your bed to a chair for at least 4 weeks. You are TOE TOUCH WEIGHT BEARING on your operative lower extremity for at least 4 - 6 weeks. You may use a wheel chair. C. Wear low heeled shoes with non-slip soles D. Be sure that your floors are free of things that could trip you throw rugs, electrical cords, and small objects. Avoid wet and waxed floors, especially with crutches/walker/cane. E. Try to transfer from bed to [facility] several times a day with rest periods between. F. SEE NOTE BELOW : You may shower 48 hours after surgery and get the incision area wet, but DO NOT soak or submerge incision area in water. (No baths, swimming pools, hot tubs) G. Change dressing daily. You should expect the wound to have some drainage. If incision is continues leaking through the dressing, please call the office . Hold off on showering if you are having a lot of drainage from the wound. Once the wound has scant drainage or is dry, you may shower H. Do NOT apply soap or any ointment/lotions directly over incision. I. You may use ice as needed to operative site. SPECIAL CARE INSTRUCTIONS: VERY IMPORTANT TO READ AND REVIEW A. You may be at risk for phlebitis or blood clots. a. Wear surgical stockings (KETAN hose) for 2 weeks after surgery to improve circulation and reduce swelling. b. Take Eliquis 10mg po twice a day . This is your blood thinner. B. There are a few signs you need to watch for after you are home. Call [facility] at [phone] if you experience any of the following: a. If you have a temperature of 101 degrees or higher. b. Sudden increase in pain in your hip not relieved by rest or pain medication. c. Any fluid or drainage from the incision; redness of the incision. d. Shortness of breath or chest pain. B. Please call [facility] at [phone] if you have any questions or concerns about your operation or recovery. C. Call your physician if: a. Temperature is greater than 101 degrees (F). b. Pain is not relieved by prescribed pain medications. c. Increase drainage or redness from incision. d. Unanswered questions or concerns. D. Pain Medication: a. You will be prescribed pain medication upon discharge that should last till your first post-operative appointment. b. If you experience nausea and/or skin rash, discontinue this medication and contact our office for an alternative medication. c. Caution- narcotic pain medication can cause constipation. FOLLOW UP VISIT: Please call [facility] at [phone] to schedule a follow up appointment with Dr Bates 10-14 days from the date of your surgery date. Core Measure Problem Core Measures: None [place] Drug Monitoring Program Search Results: no issues identified
[2016-11-04 12:47] VITALS: BP 128/80; PULSE 101; TEMP 36.6; O2SAT 91
--- NOTE | 2016-11-05 07:44 | Discharge Summary ---
Discharge Summary Date of Service November 05, 2016. Discharge Summary Admission Date: Oct 26, 2016 at 15:27 Discharge Date: November 04, 2016 Discharge Disposition: detention facility Principal Diagnosis: Left hip fracture Problems/Secondary Diagnoses: Atrial fibrillation Dementia Immunizations: Have You Had Influenza Vaccine: Yes History of Tetanus Vaccine?: Unknown History of Pneumococcal: Yes Pneumococcal Date: Aug 28, 2014 History of Hepatitis B Vaccine: Unknown Procedures: Left ORIF hip, 10/28 Consultations: Orthopedic surgery Cardiology Medication Reconciliation New Medications: Aspirin (Aspirin Adult Low Dose) 81 Mg Tab 81 MG PO DAILY for 30 Days, #30 TABS 3 Refills Apixaban (Eliquis) 2.5 Mg Tab 2.5 MG PO BID, #60 TAB 3 Refills Carvedilol (Carvedilol) 3.125 Mg Tab 3.125 MG PO BID for 30 Days, #60 TAB Diltiazem HCl (Diltiazem HCl) 30 Mg Tab 30 MG PO DAILY for 30 Days, #30 TAB Ferrous Sulfate (Ferrous Sulfate) 325 Mg Tab 325 MG PO BIDM for 30 Days, TAB Hydrocodone/Acetaminophen 5MG/325MG ([place] 5MG/325MG) Tab 1-2 TAB PO Q6H PRN for Pain for 15 Days, TAB PRN PAIN Magnesium Hydroxide (Milk of Magnesia) 30 Ml Susp 30 ML PO Q6H PRN for Constipation for 30 Days Tramadol HCl (Tramadol HCl) 50 Mg Tab 50-100 MG PO Q4H PRN for Pain for 15 Days, TAB Continued Medications: Acetaminophen Tab (Tylenol) 325 Mg Tab 650 MG PO PRN for Pain, TAB Allopurinol (Zyloprim *) 100 Mg Tab 100 MG PO QAM, 0 Refills Bisacodyl (Dulcolax) 5 Mg Tab 5 TAB PO DAILY PRN for Constipation for 1 Day, #2 TAB Diphenhydramine Hcl (Sleep) (Unisom Sleepgels) 50 Mg Cap 50 MG PO HS Furosemide (Lasix) 20 Mg Tab 20 MG PO DAILY, #30 TAB 1 Refill Glipizide (Glipizide) 5 Mg Tab 5 MG PO DAILY, #30 1 Refill Lisinopril (Zestril) 5 Mg Tab 5 MG PO DAILY, TAB Multiple Vitamin (Thera) 1 Tab Tab 1 TAB PO DAILY Pantoprazole (Protonix) 40 Mg Tab 40 MG PO DAILY, #30 TAB Quetiapine Fumarate (Quetiapine Fumarate) 25 Mg Tab 25 MG PO HS, #30 TAB 1 Refill Venlafaxine Hcl (Effexor) 75 Mg Tab 75 MG PO DAILY, TAB Discontinued Medications: Amlodipine Besylate (Amlodipine Besylate) 5 Mg Tab 5 MG PO QAM, #30 TAB 1 Refill Aspirin (Aspirin Ec) 325 Mg Tab 325 MG PO DAILY Metoprolol Tartrate (Lopressor) 50 Mg Tab 50 MG PO BID, TAB Discharge Exam Patient doing well, pain controlled, eating well, no issues overnight. Informed by CM that he was accepted at [facility] for further rehab and skilled care. Review of Systems: Constitutional: + fatigue, + weakness, No chills, No fever, No problem reported, No sweats, No weight loss Eyes: No diplopia, No discharge, No eye pain, No problem reported, No redness, No worsening of vision ENT: No dental problems, No hearing loss, No nasal symptoms, No problem reported, No sore throat, No tinnitus, No trouble swallowing, No unusual epistaxis Respiratory: No cough, No dyspnea at rest, No dyspnea on exertion, No hemoptysis, No problem reported, No shortness of breath, No sputum, No wheezing Cardiovascular: No PND, No chest pain, No claudication, No edema, No orthopnea, No palpitations, No problem reported Abdomen: No GI bleeding, No constipation, No diarrhea, No nausea, No pain, No problem reported, No vomiting Musculoskeletal: + joint pain (left hip), No calf pain, No muscle pain, No problem reported, No swelling Genitourinary - Male: No dysuria, No hematuria, No urinary frequency, No urinary urgency Neurologic: No balance problems, No memory loss, No numbness/tingling, No paralysis, No problem reported, No vertigo, No weakness Psychiatric: No anhedonism, No anxiety, No depression symptoms, No insomnia , No problem reported, No substance abuse Endocrine: No excessive thirst, No excessive urination, No fatigue, No problem reported Integumentary: No bleeding, No color change, No itch, No new/changing skin lesions, No problem reported, No rash Physical Exam: General Appearance: WD/WN, no apparent distress Eyes: normal inspection, EOMI, sclerae normal ENT: normal ENT inspection, hearing grossly normal, pharynx normal Neck: supple, no adenopathy, no JVD, trachea midline Respiratory/Chest: chest non-tender, lungs clear, normal breath sounds, no respiratory distress, no accessory muscle use Cardiovascular: regular rate, rhythm, no edema, no gallop, no JVD, no murmur , normal peripheral pulses Abdomen / GI: normal bowel sounds, non tender, soft, no organomegaly Extremities: normal inspection, no calf tenderness, normal capillary refill , no pedal edema, normal range of motion 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 Left hip fracture - periprosthetic fracture s/p ORIF POD # 7 - pain controlled with [place] - PT/OT for SNF placement - will go to [facility] 2. Afib - resume Eliquis 2.5mg BID for stroke prevention - rate controlled - continue Coreg BID and Diltiazem 30mg in the morning only 3. CAD - cont coreg - can resume Aspirin 4. CHF - cont furosemide and lisinopril - CXR no e/o pulmonary edema 5. HTN - BP borderline elevated - will monitor, goal <150 systolic - cont lisinopril 5mg, Coreg, Diltiazem 6. T2DM - acceptable glucose readings on sliding scale 7. CKD IIIb - baseline appears to be ~1.6-2.0 -stable, Cr 1.7 on 11/03 at last check - avoid hypotension, avoid NSAIDs, avoid non-urgent contrast and other nephrotoxins 8. ANemia - start iron supplementation, monitor for constipation - Hb stable post-op, received 2 units pre-op - Hb 8.2 on day of discharge which is around his baseline 9. Dementia - confused at baseline Total Time Spent: Greater than 30 minutes This includes examination of the patient, discharge planning, medication reconciliation, and communication with other providers. Discharge Instructions Please refer to the electronic Patient Visit Report (Discharge Instructions) for additional information. Follow-Up Physician at [facility] in one week Additional Copies To Dayron Giron
== END 2016-11-04 15:00 | DRG 481 ==
LOC: ENRESERVDT → ENRESERVTM → C.MSN 15:27 → EDBEDREQ 10-31 10:27 → CMPBEDREQ 10-31 14:25
PROVIDERS: ADMIT Internal Medicine; ATTEND Internal Medicine
PROC: 0QS704Z Reposition Left Upper Femur with Internal Fixation Device, Open Approach (ICD-10-PCS; principal; 2016-10-28 09:15)
DX: M97.02XA Periprosthetic fracture around internal prosthetic left hip joint, initial encounter (principal); I50.32 Chronic diastolic (congestive) heart failure; F41.9 Anxiety disorder, unspecified; N18.3 Chronic kidney disease, stage 3 (moderate); I25.10 Atherosclerotic heart disease of native coronary artery without angina pectoris; I12.9 Hypertensive chronic kidney disease with stage 1 through stage 4 chronic kidney disease, or unspecified chronic kidney disease; E11.9 Type 2 diabetes mellitus without complications; E78.5 Hyperlipidemia, unspecified; G47.00 Insomnia, unspecified; F03.90 Unspecified dementia, unspecified severity, without behavioral disturbance, psychotic disturbance, mood disturbance, and anxiety; I48.91 Unspecified atrial fibrillation; D64.9 Anemia, unspecified; Z85.46 Personal history of malignant neoplasm of prostate; Z79.82 Long term (current) use of aspirin; Z90.49 Acquired absence of other specified parts of digestive tract; W19.XXXA Unspecified fall, initial encounter

== ENCOUNTER 2017-11-09 15:16 | Emergency (ER) | payer OTHER ==
[~2017-11-09] VITALS: Ht 172.7 cm; Wt 75.6 kg
[~2017-11-09 15:16] MED LIST changes: +ACET-1693 PO; -ACET325T96 PO; +ASPI-589 PO; -ASPI325T39 PO; +CRD30 PO; +CRG3125 PO; +ELQ25 PO; +FRRS300 PO; +HYDR-5688 PO; -METO-551 PO; +MOMLX PO; -NRV5 PO; +PANT1TAB3 PO; -PANT1TAB48 PO; +ULT50X PO
[2017-11-09 15:28] VITALS: TEMP 36.4; Ht 172.7 cm; Wt 75.6 kg
[2017-11-09 15:58] VITALS: O2SAT 93
--- NOTE | 2017-11-09 16:32 | DIAGNOSTIC IMAGING REPORT ---
CHEST ONE VIEW PORTABLE CLINICAL HISTORY: shortness of breath dyspnea COMPARISON STUDY: 10/31/2016 FINDINGS: Moderate stable cardiomegaly. Chronic pulmonary vascular prominence. Mild chronic elevation right hemidiaphragm. Slight blunting left lateral costophrenic angle. IMPRESSION: Mild congestive failure. The above report was generated using voice recognition software. It may contain grammatical, syntax or spelling errors. Electronically signed by: Gabe Molina M.D. 11/09/2017 4:30 PM Dictated Date/Time: 11/09/2017 4:30 PM
[2017-11-09] MEDS ORDERED: ALL100 PO (16:54)
[2017-11-09 17:03] LABS: HEMATOCRIT 39.9 % (42-52); HEMOGLOBIN 12.9 g/dL (14.0-18.0); MEAN CELL VOLUME 103.6 fL (80-100); MEAN CORPUSCULAR HEMOGLOBIN 33.5 pg (25-34); MEAN CORPUSCULAR HGB CONC 32.3 g/dl (32-36); MEAN PLATELET VOLUME 10.2 fL (7.4-10.4); PLATELET COUNT 198 K/uL (130-400); RED CELL DISTRIBUTION WIDTH CV 16.6 % (11.5-14.5); RED CELL DISTRIBUTION WIDTH SD 61.8 fL (36.4-46.3)
[2017-11-09 17:10] LABS: ISTAT CREATININE 2.7 mg/dl (0.6-1.3); ISTAT IONIZED CALCIUM 1.18 mmol/l (1.12-1.32); ISTAT POTASSIUM 4.3 mEq/L (3.3-5.0)
[2017-11-09 17:11] LABS: INR 1.3 (0.9-1.1); PTT PATIENT 30.6 SECONDS (21.0-31.0)
--- NOTE | 2017-11-09 17:16 | DIAGNOSTIC IMAGING REPORT ---
HEAD WITHOUT CONTRAST (CT) CLINICAL HISTORY: 87 years-old Male with confusion, slurred speech. Acute confusion with slurred speech TECHNIQUE: Multiple axial CT images of the head were obtained without contrast. A dose lowering technique was utilized adhering to the principles of ALARA. CT DOSE: 872.26 mGy.cm COMPARISON: CT head 03/07/2015. FINDINGS: No acute intracranial hemorrhage, midline shift, intracranial mass, hydrocephalus, territorial ischemia or abnormal extra-axial collection. Mild to moderate atrophy with ex vacuo ventriculomegaly and chronic microvascular ischemic changes. Cerebral vascular calcifications are seen at the level of the skull base. The calvarium is intact. Mastoid air cells are clear. Mild polypoid mucosal thickening of the imaged maxillary sinuses with mild ethmoid sinus disease. Mild mucosal thickening of the left sphenoid sinus. Soft tissues and orbits are unremarkable. IMPRESSION: No acute intracranial abnormality. The above report was generated using voice recognition software. It may contain grammatical, syntax or spelling errors. Electronically signed by: Chicho Garcia M.D. 11/09/2017 5:15 PM Dictated Date/Time: 11/09/2017 5:12 PM
[2017-11-09 17:23] LABS: ALBUMIN 3.4 gm/dl (3.4-5.0); CALCIUM 8.6 mg/dl (8.5-10.1); CREATININE 2.65 mg/dl (0.60-1.40); POTASSIUM 4.4 mmol/L (3.5-5.1)
[2017-11-09 17:26] LABS: TOTAL PROTEIN 7.2 gm/dl (6.4-8.2)
[2017-11-09] MEDS ORDERED: GUAI1TAB75 PO (17:27)
[2017-11-09] MEDS ORDERED: CLOTCRE TOP (17:27)
[2017-11-09] MEDS ORDERED: NYSTOIN5 (17:27)
[2017-11-09] MEDS ORDERED: MIRT15TA53 PO (17:27)
[2017-11-09] MEDS ORDERED: VITBC PO (17:30)
[2017-11-09] MEDS ORDERED: QUET1TAB30 PO (17:30)
[2017-11-09] MEDS ORDERED: VENL150C PO (17:33)
[2017-11-09] MEDS ORDERED: LORA-741 PO (17:33)
[2017-11-09] MEDS ORDERED: VENL1CAP92 PO (17:35)
[2017-11-09] MEDS ORDERED: CYAN500T PO (17:36)
[2017-11-09] MEDS ORDERED: FUROSEMIDE 40 MG/4 ML VIAL IV STA (20:29)
[2017-11-09 21:43] VITALS: BP 158/92; PULSE 74; O2SAT 96
--- NOTE | 2017-11-09 23:34 | EMERGENCY ROOM VISIT NOTE ---
"History Report prepared by Geovanni: Migue Pereira Under the Supervision of: Dr. Jarrett Morataya M.D. First contact with patient: 16:04 Chief Complaint: NEURO SYMPTOMS Stated Complaint: AMS / [facility] Nursing Triage Summary: presents by EMS from [facility]. Per staff patient becoming more confused over past few days slurred speech 2 hours ago - RODRIGUEZ, following commands, no facial deficits. Per staff also short of breath, not appreciated by EMS. PMH: Dementia, afib, anxiety disorder, HTN, CHF, CKD 4, VSS per ems oriented to self, time and place Very [place] History of Present Illness The patient is an 87 year old male with a history of dementia, anxiety, atrial fibrillation, CHF, and CKD stage 4 who presents to the Emergency Room via EMS from [facility] with worsening confusion over the past few days. Per the staff at [facility], the patient has been noted to be more confused recently, and today started having slurred speech and was not making sense. However, there was no facial droop noted or obvious unilateral weakness. The staff noted that the patient has been more short of breath recently as well, but EMS did not appreciate the breathing difficulties. Currently, the patient states that he feels fine. However, per the patient's son, the patient noted that he was not feeling well a couple days ago, but did not mention anything in particular. Per the nursing staff, the patient's oxygen was around 83% when he was sleeping. He does not wear oxygen normally. Pt denies LOC, headache, fevers , chills, diaphoresis, visual changes, neck pain, chest pain, current breathing difficulties, nausea, vomiting, abdominal pain, back pain, melena, hematochezia , urinary symptoms, numbness, weakness, lymphadenopathy, rash, or other complaints. The patient is followed-up with [facility]. Source of History: patient, family, skilled nursing notes, nursing staff Onset: Over past few days Position: other (global) Symptom Intensity: slurred speech today Quality: other (confusion) Timing: worsening Associated Symptoms: + SOB (appreciated by skilled nursing staff, but patient denies) Note: Associated symptoms: O2 saturation of 83% while sleeping. Says he feels fine currently. Review of Systems See HPI for pertinent positives and negatives. A total of ten systems were reviewed and were otherwise negative. Past Medical & Surgical Medical Problems: (1) Anxiety (2) Benign hypertension (3) CKD (chronic kidney disease), stage III (4) Coronary artery disease (5) Depression (6) Diabetes mellitus, type II (7) Dyslipidemia (8) Fall (9) History of prostate cancer (10) History of renal calculi (11) Hypertension (12) Insomnia (13) Periprosthetic fracture around internal prosthetic left hip joint (14) Spinal stenosis (15) Thoracic aortic aneurysm Surgical Problems: (1) Status post appendectomy (2) Status post cholecystectomy (3) Status post lumbar surgery (4) Status post nephrectomy (5) Status post prostatectomy (6) Status post repair hip fracture Family History Cancer FATHER Diabetes mellitus MOTHER Heart disease SISTER Social History Smoking Status: Never Smoker Alcohol Use: none Marital Status: Occupation Status: retired Current/Historical Medications Scheduled Allopurinol (Allopurinol), 150 MG PO QAM Apixaban (Eliquis), 2.5 MG PO BID Aspirin (Aspirin Adult Low Dose), 81 MG PO DAILY Carvedilol (Carvedilol), 3.125 MG PO BID Clotrimazole W/ Betamethasone (Lotrisone), 1 APPLN TOP AMPM Cyanocobalamin (Vitamin B-12), 500 MCG PO DAILY Diltiazem HCl (Diltiazem HCl), 30 MG PO DAILY Ferrous Sulfate (Ferrous Sulfate), 325 MG PO BIDM Furosemide (Lasix), 20 MG PO DAILY Glipizide (Glipizide), 5 MG PO DAILY Lisinopril (Zestril), 5 MG PO DAILY Mirtazapine (Mirtazapine), 15 MG PO HS Multiple Vitamin (Thera), 1 TAB PO DAILY Pantoprazole (Protonix), 40 MG PO DAILY Quetiapine Fumarate (Seroquel), 12.5 MG PO HS Venlafaxine Hcl (Effexor Xr), 150 MG PO DAILY Venlafaxine Hcl (Effexor Xr), 37.5 MG PO DAILY Vitamin B Complex (Vitamin B Complex), 1 TAB PO DAILY Scheduled PRN Acetaminophen Tab (Tylenol), 650 MG PO for Pain Guaifenesin La (Guaifenesin Er), 600 MG PO Q12H PRN for Cough Lorazepam (Ativan), 0.5 MG PO BID PRN for Anxiety Miscellaneous Medications Nystatin/Triamcinolone (Mycogen ||) Allergies Coded Allergies: No Known Allergies (Verified , 11/09/17) Physical Exam Vital Signs Date Time Temp Pulse Resp B/P (MAP) Pulse Ox O2 Delivery O2 Flow Rate FiO2 11/09/17 21:43 74 20 158/92 96 Room Air 11/09/17 20:57 82 11/09/17 19:59 20 121/81 99 Room Air 11/09/17 19:07 70 18 151/97 94 Room Air 11/09/17 18:51 89 18 164/97 95 Nasal Cannula 2.0 11/09/17 17:15 85 18 170/95 95 Room Air 11/09/17 16:31 77 11/09/17 16:04 69 16 93 Room Air 2.0 Nasal Cannula 11/09/17 15:58 93 Nasal Cannula 2.0 11/09/17 15:36 82 18 97 Room Air 11/09/17 15:28 36.4 76 18 156/105 96 Room Air Physical Exam GENERAL: Awake, tired appearing, relatively alert HENT: Normocephalic, atraumatic. Oropharynx unremarkable. EYES: Normal conjunctiva. Sclera non-icteric. NECK: Supple. No nuchal rigidity. FROM. No masses. RESPIRATORY: Clear to auscultation. No wheezes. No rales. Normal respiratory effort. CARDIAC: Normal rate. Normal rhythm. No murmurs. No rubs. Extremities warm and well perfused. Pulses equal. No JVD. GI: Soft, non-distended. No tenderness to palpation. No rebound or guarding. No masses. RECTAL: Deferred. MUSCULOSKELETAL: Atraumatic. Chest examination reveals no tenderness. The back is symmetrical on inspection without obvious abnormality. There is no CVA tenderness to palpation. No joint edema. LOWER EXTREMITIES: Calves are equal size bilaterally and non-tender. 1+ pitting edema bilaterally. No discoloration. NEURO: Demented sensorium. Following commands, no focal deficits. SKIN: No rash or jaundice noted. Medical Decision & Procedures ER Provider Diagnostic Interpretation: Radiology results as stated below per my review and radiologist interpretation: CHEST ONE VIEW PORTABLE CLINICAL HISTORY: shortness of breath dyspnea COMPARISON STUDY: 10/31/2016 FINDINGS: Moderate stable cardiomegaly. Chronic pulmonary vascular prominence. Mild chronic elevation right hemidiaphragm. Slight blunting left lateral costophrenic angle. IMPRESSION: Mild congestive failure. The above report was generated using voice recognition software. It may contain grammatical, syntax or spelling errors. Electronically signed by: Gabe Molina M.D. 11/09/2017 4:30 PM Dictated Date/Time: 11/09/2017 4:30 PM HEAD WITHOUT CONTRAST (CT) CLINICAL HISTORY: 87 years-old Male with confusion, slurred speech. Acute confusion with slurred speech TECHNIQUE: Multiple axial CT images of the head were obtained without contrast. A dose lowering technique was utilized adhering to the principles of ALARA. CT DOSE: 872.26 mGy.cm COMPARISON: CT head 03/07/2015. FINDINGS: No acute intracranial hemorrhage, midline shift, intracranial mass, hydrocephalus, territorial ischemia or abnormal extra-axial collection. Mild to moderate atrophy with ex vacuo ventriculomegaly and chronic microvascular ischemic changes. Cerebral vascular calcifications are seen at the level of the skull base. The calvarium is intact. Mastoid air cells are clear. Mild polypoid mucosal thickening of the imaged maxillary sinuses with mild ethmoid sinus disease. Mild mucosal thickening of the left sphenoid sinus. Soft tissues and orbits are unremarkable. IMPRESSION: No acute intracranial abnormality. The above report was generated using voice recognition software. It may contain grammatical, syntax or spelling errors. Electronically signed by: Chicho Garcia M.D. 11/09/2017 5:15 PM Dictated Date/Time: 11/09/2017 5:12 PM Laboratory Results 11/09/17 16:50 11/09/17 16:50 Test 11/09/17 16:00 11/09/17 16:50 11/09/17 16:56 11/09/17 19:50 Bedside Glucose 156 mg/dl (70-99) Red Blood Count 3.85 M/uL (4.7-6.1) Mean Corpuscular Volume 103.6 fL (80-100) Mean Corpuscular Hemoglobin 33.5 pg (25-34) Mean Corpuscular Hemoglobin Concent 32.3 g/dl (32-36) RDW Standard Deviation 61.8 fL (36.4-46.3) RDW Coefficient of Variation 16.6 % (11.5-14.5) Mean Platelet Volume 10.2 fL (7.4-10.4) Prothrombin Time 13.9 SECONDS (9.0-12.0) Prothromb Time International Ratio 1.3 (0.9-1.1) Activated Partial Thromboplast Time 30.6 SECONDS (21.0-31.0) Partial Thromboplastin Ratio 1.2 Est Creatinine Clear Calc Drug Dose 19.0 ml/min Estimated GFR () 24.0 Estimated GFR (Non- 20.7 BUN/Creatinine Ratio 19.0 (10-20) Calcium Level 8.6 mg/dl (8.5-10.1) Total Bilirubin 1.2 mg/dl (0.2-1) Aspartate Amino Transf (AST/SGOT) 23 U/L (15-37) Alanine Aminotransferase (ALT/SGPT) 19 U/L (12-78) Alkaline Phosphatase 107 U/L (45-117) Total Protein 7.2 gm/dl (6.4-8.2) Albumin 3.4 gm/dl (3.4-5.0) Globulin 3.8 gm/dl (2.5-4.0) Albumin/Globulin Ratio 0.9 (0.9-2) Bedside Hemoglobin 13.9 g/dl (14.0-18.0) Bedside Hematocrit 41 % (42-52) Bedside Sodium 147 mEq/L (135-144) Bedside Potassium 4.3 mEq/L (3.3-5.0) Bedside Chloride 112 mEq/L (101-112) Bedside Total CO2 23 mEq/l (24-31) Anion Gap 17.0 mmol/L (16-25) Bedside Blood Urea Nitrogen 46 mg/dl (7-18) Bedside Creatinine 2.7 mg/dl (0.6-1.3) Bedside Glucose (other) 151 mg/dl (70-99) Bedside Ionized Calcium (Corazon) 1.18 mmol/l (1.12-1.32) Urine Color DK YELLOW Urine Appearance CLEAR (CLEAR) Urine pH 5.0 (4.5-7.5) Urine Specific Shanks 1.024 (1.000-1.030) Urine Protein TRACE (NEG) Urine Glucose (UA) NEG (NEG) Urine Ketones NEG (NEG) Urine Occult Blood NEG (NEG) Urine Nitrite NEG (NEG) Urine Bilirubin NEG (NEG) Urine Urobilinogen NEG (NEG) Urine Leukocyte Esterase NEG (NEG) Urine WBC (Auto) 1-5 /hpf (0-5) Urine RBC (Auto) 0-4 /hpf (0-4) Urine Hyaline Casts (Auto) 1-5 /lpf (0-5) Urine Epithelial Cells (Auto) 0-5 /lpf (0-5) Urine Bacteria (Auto) NEG (NEG) Laboratory results reviewed by me Medications Administered Medications (Trade) Dose Ordered Sig/Marv Route Start Time Stop Time Status Last Admin Dose Admin Furosemide (Lasix Inj) 40 mg NOW STAT IV 11/09/17 20:29 11/09/17 20:30 DC 11/09/17 20:56 40 MG ECG Per My Interpretation Indication: altered mental status Rate (beats per minute): 82 Rhythm: atrial fibrillation Findings: no acute ischemic change, left axis deviation, prolonged QT, no ectopy, other (nonspecific ST) ED Course 1609: The patient was evaluated in room B4A. A complete history and physical exam was performed. 2028: Lasix Inj 40 mg IV. 2034: I discussed the patient with Dr. Bunn - [facility] neurologist - she would not recommend any changes to the patient's medications, and did not feel that it was necessary for the patient to come into the hospital under these circumstances. 2113: I reevaluated the patient and he is resting. Discussed results and discharge instructions: he verbalized understanding and agreement. The patient is ready for discharge. Medical Decision Prior records/ancillary studies reviewed and summarized above. Nursing notes reviewed and agree them. Additional history obtained from family. The patient's history was concerning for altered mental status. Differential diagnosis: Etiologies such as worsening of dementia, TIA, UTI, hypertensive crisis, infection, hypoglycemia, electrolyte abnormalities, cardiac sources, intracerebral event, toxicologic, neurologic, as well as others were entertained. Physical examination: As above. The patient was without complaints. Nonfocal. Following commands. Speech currently baseline. Family present and confirms. ER treatment provided: IV Lock IV Lasix On reassessment the patient was stable. He was observed for an extended period in the emergency department without issues. Blood pressure is mildly hypertensive although did not require direct treatment. Oxygen saturations adequate. Diagnostics interpretation by me: ECG: No acute changes. The labs revealed an unremarkable CBC and chemistry panel except for mild anemia and baseline renal insufficiency. Urinalysis negative. Imaging studies: Chest x-ray and head CT as above. Consultation: A consultation was placed with the neurologist on-call, Dr. Bunn. The patient is already anticoagulated and is on a baby aspirin. Given the nonspecific findings TIA was felt to be a possibility but unlikely. No additional medication changes or recommendations were given. Conservative management was recommended. The patient was observed for about 6 hours in the emergency department without having any issues with worsening mental status, slurred speech, neurologic focal findings, or hypoxia. His blood pressure was mildly hypertensive but not significantly so that would require intervention. Close outpatient follow-up would be prudent. It was felt that the patient would be best served by keeping him in his known environment. He was given a dose of IV Lasix as he had some congestion on his chest x-ray. He is currently taking Lasix. He can use oxygen as needed. Recommendations were given and the patient was discharged in stable condition for evaluation by his primary tomorrow. Medication Reconcilliation Current Medication List: was personally reviewed by me Blood Pressure Screening Patient's blood pressure: Normal blood pressure Consults Time Called: 2029 Consulting Physician: Dr. Sepideh Xavier [facility] neurologist Returned Call: 2034 I discussed the patient with Dr. Sepideh DANIEL neurologist - she would not recommend any changes to the patient's medications, and did not feel that it was necessary for the patient to come into the hospital under these circumstances. Impression Primary Impression: Altered mental status Additional Impression: Slurred speech Scribe Attestation The scribe's documentation has been prepared under my direction and personally reviewed by me in its entirety. I confirm that the note above accurately reflects all work, treatment, procedures, and medical decision making performed by me. Departure Information Dispostion Home / Self-Care Referrals Nova Chan D.O. (PCP) Forms HOME CARE DOCUMENTATION FORM, IMPORTANT VISIT INFORMATION, WORK / SCHOOL INSTRUCTIONS Patient Instructions My [facility] Additional Instructions The patient did well under his observation time in the emergency department. Family was present and stated he was at his baseline. Head CT was unremarkable. Chest x-ray shows some mild congestion. He was treated with a dose of IV Lasix. The CBC was unremarkable. The patient had baseline renal insufficiency on his chemistry panel but no electrolyte abnormality. Urinalysis was clean. ECG reveals A. fib with nonspecific changes. Neurology consultation recommended no additional changes to his current medications. Recommendations are for primary follow-up tomorrow. Any acute changes, fever, chest pain, vomiting, abdominal pain, or other concerns should be referred back to the emergency department for reevaluation and possible admission. Problem Qualifiers Primary Impression: Altered mental status Altered mental status type: unspecified Qualified Codes: R41.82 - Altered mental status, unspecified"
== END 2017-11-09 22:15 | disposition home or self-care (01) ==
LOC: EDBD 15:16 → C.EDB 15:17
DX: R41.82 Altered mental status, unspecified (principal); R47.81 Slurred speech; I12.9 Hypertensive chronic kidney disease with stage 1 through stage 4 chronic kidney disease, or unspecified chronic kidney disease; E11.22 Type 2 diabetes mellitus with diabetic chronic kidney disease; N18.3 Chronic kidney disease, stage 3 (moderate); G47.00 Insomnia, unspecified; I25.10 Atherosclerotic heart disease of native coronary artery without angina pectoris; Z85.46 Personal history of malignant neoplasm of prostate; Z79.899 Other long term (current) drug therapy; Z79.82 Long term (current) use of aspirin

== ENCOUNTER 2017-11-14 16:20 | Observation (INO) | payer OTHER ==
[~2017-11-14] VITALS: Ht 172.7 cm; Wt 63.6 kg
[~2017-11-14 16:20] MED LIST changes: -BISA-16 PO; +CLOTCRE TOP; +CYAN500T PO; -DIPH50CA56 PO; +GUAI1TAB75 PO; -HYDR-5688 PO; +LORA-741 PO; +MIRT15TA53 PO; -MOMLX PO; +NYSTOIN5; +QUET1TAB30 PO; -SRQ25 PO; -ULT50X PO; +VENL150C PO; +VENL1CAP92 PO; -VENL75TA4 PO; +VITBC PO
--- NOTE | 2017-11-14 16:47 | DIAGNOSTIC IMAGING REPORT ---
CHEST ONE VIEW PORTABLE HISTORY: 87 years-old Male EVALUATE WEAKNESS acute weakness COMPARISON: Chest radiograph 11/09/2017 TECHNIQUE: Portable AP view of the chest FINDINGS: Cardiac silhouette is again enlarged. Suspected trace pleural effusions without pneumothorax. Pulmonary vascular congestion with mild interstitial coarsening has slightly worsened. Subsegmental bibasilar opacities favor atelectasis. Degenerative changes of the spine and shoulders. IMPRESSION: 1. Cardiomegaly with mild pulmonary edema. 2. Suspected trace pleural effusions with bibasilar opacities. The above report was generated using voice recognition software. It may contain grammatical, syntax or spelling errors. Electronically signed by: Chicho Garcia M.D. 11/14/2017 4:46 PM Dictated Date/Time: 11/14/2017 4:44 PM
[2017-11-14 17:15] LABS: BASO % 0.2 %; BASO ABS # 0.01 K/uL (0-0.2); EOS % 1.3 %; EOS ABS # 0.08 K/uL (0-0.5); HEMATOCRIT 42.1 % (42-52); HEMOGLOBIN 13.2 g/dL (14.0-18.0); IG# 0.01 K/uL (0.00-0.02); LYMPH % 25.1 %; LYMPH ABS # 1.51 K/uL (1.2-3.4); MEAN CORPUSCULAR HEMOGLOBIN 32.6 pg (25-34); MEAN CORPUSCULAR HGB CONC 31.4 g/dl (32-36); MEAN PLATELET VOLUME 9.5 fL (7.4-10.4); MONO % 5.8 %; MONO ABS # 0.35 K/uL (0.11-0.59); NEUT % 67.4 %; NEUT ABS # 4.05 K/uL (1.4-6.5); PLATELET COUNT 204 K/uL (130-400); RED CELL DISTRIBUTION WIDTH CV 16.8 % (11.5-14.5); WHITE BLOOD COUNT 6.01 K/uL (4.8-10.8)
[2017-11-14 17:18] LABS: INR 1.3 (0.9-1.1); PTT PATIENT 32.7 SECONDS (21.0-31.0)
[2017-11-14 17:36] LABS: ALBUMIN 3.3 gm/dl (3.4-5.0); CALCIUM 8.6 mg/dl (8.5-10.1); CREATININE 2.12 mg/dl (0.60-1.40); POTASSIUM 4.5 mmol/L (3.5-5.1)
[2017-11-14 17:50] LABS: CKMB 8.7 ng/ml (0.5-3.6); TOTAL PROTEIN 7.4 gm/dl (6.4-8.2)
[2017-11-14] MEDS ORDERED: FURO-85 PO (17:55)
[2017-11-14] MEDS ORDERED: GLIP5TAB3 PO (17:55)
--- NOTE | 2017-11-14 19:41 | DIAGNOSTIC IMAGING REPORT ---
BILATERAL LOWER EXTREMITY VENOUS DOPPLER HISTORY: Acute edema of the bilateral lower extremities cool, edematous, poor circulation BLE COMPARISON STUDY: None. FINDINGS: There is normal compressibility, flow, and augmentation within the bilateral lower extremity deep venous systems. Mild subcutaneous edema of the bilateral lower extremities. IMPRESSION: No sonographic evidence of deep venous thrombosis within the right or left lower extremity. Electronically signed by: Chicoh Garcia M.D. 11/14/2017 7:40 PM Dictated Date/Time: 11/14/2017 7:39 PM
[2017-11-14] MEDS ORDERED: FUROSEMIDE 40 MG/4 ML VIAL IV STA (20:03)
--- NOTE | 2017-11-14 20:07 | DIAGNOSTIC IMAGING REPORT ---
ART DOP LOWER EXT BILAT HISTORY: 87 years-old Male cool, edematous, poor circulation BLE code bilateral lower extremities COMPARISON: Duplex venous Doppler study of same day TECHNIQUE: Multiple real-time sonographic images of the bilateral lower extremity arterial structures were obtained assessing grayscale appearance, color and spectral flow FINDINGS: RIGHT: Triphasic waveforms are seen within the common femoral, profunda femoris and superficial femoral arteries. Mildly blunted biphasic waveforms of the popliteal artery. Blunted monophasic waveforms of the posterior tibial, peroneal, anterior tibial and dorsalis pedis arteries. Reversal flow is noted within the dorsalis prescott artery with spectral broadening and decreased peak systolic velocity of 15 cm/s. No definite flow identified within the distal peroneal and anterior tibial arteries. ABIs were conducted secondary to noncompressible vessels. Prominent atherosclerotic plaquing throughout. LEFT: Triphasic waveforms are noted within the common femoral artery. Blunted biphasic waveforms within the profunda femoris. Triphasic waveforms within the superficial femoral artery. Blunted biphasic waveforms of the distal superficial femoral artery with mixed plaquing. Blunted monophasic waveforms within the popliteal artery with mild spectral broadening. The distal popliteal artery demonstrates very blunted biphasic waveforms. Biphasic waveforms are noted within the posterior tibial artery with elevated peak systolic velocities measuring up to 241 cm/s. No flow identified within the peroneal artery suggesting vessel occlusion. Monophasic waveforms in the anterior tibial artery with elevated peak systolic velocities measuring up to 322 cm/s. No flow identified within the dorsalis pedis artery. IMPRESSION: 1. No flow identified within the left dorsalis pedis and peroneal arteries suggesting age-indeterminate vessel occlusion. 2. Elevated peak systolic velocities within the left posterior tibial and anterior tibial arteries suggest high-grade stenosis. 3. Reversal of flow within the dorsalis pedis artery on the right also suggests high-grade stenosis. 4. Predominately triphasic waveforms above the level of the knees bilaterally as above. These findings could be further evaluated with digital subtraction angiography. The above report was generated using voice recognition software. It may contain grammatical, syntax or spelling errors. Electronically signed by: Chicho Garcia M.D. 11/14/2017 8:06 PM Dictated Date/Time: 11/14/2017 7:59 PM
--- NOTE | 2017-11-14 20:20 | EMERGENCY ROOM VISIT NOTE ---
"History Report prepared by Geovanni: Migue Pereira Under the Supervision of: Dr. Jarrett Morataya M.D. First contact with patient: 16:22 Stated Complaint: SOB/CONFUSED History of Present Illness The patient is an 87 year old male who presents to the Emergency Room via EMS with reported persistent shortness of breath today. Per EMS, the patient is coming from his nursing facility, and the staff there reported that the patient was short of breath, but EMS noted that the patient does not appear short of breath. His pulse ox has been ranging between 82 to 100%. He was put on 2 liters of oxygen by EMS and he had the same pulse ox range. Per EMS, the patient is confused as per usual. The patient says that he feels fine currently. He says that his appetite has been fine recently. The patient was here on the 09 of November and had reported low oxygen level at his nursing facility , but was normal here but was mildly hypertensive and had fluid overload. He had a negative chest CT and his lab work was unremarkable. He was given a dose of IV Lasix and was observed for 6 hours here and did well. He was discharged to see his primary care physician at his facility. Pt denies LOC, headache, fevers, chills, diaphoresis, visual changes, neck pain, chest pain, current breathing difficulties, nausea, vomiting, abdominal pain, back pain, melena, hematochezia, urinary symptoms, numbness, weakness, lymphadenopathy, rash, or other complaints. Of note the patient does have severe dementia and the history is somewhat limited as is the review regarding accuracy. Source of History: patient, snf notes, EMS Onset: Today Position: other (global) Symptom Intensity: pulse ox ranging from 82-100% Quality: other (shortness of breath) Timing: other (persistent) Note: Associated symptoms: Patient notes that he feels fine currently. Confused as per usual. Review of Systems See HPI for pertinent positives and negatives. A total of ten systems were reviewed and were otherwise negative. Past Medical & Surgical Medical Problems: (1) Anxiety (2) Benign hypertension (3) CKD (chronic kidney disease), stage III (4) Coronary artery disease (5) Depression (6) Diabetes mellitus, type II (7) Dyslipidemia (8) Fall (9) History of prostate cancer (10) History of renal calculi (11) Hypertension (12) Insomnia (13) Periprosthetic fracture around internal prosthetic left hip joint (14) Spinal stenosis (15) Thoracic aortic aneurysm Surgical Problems: (1) Status post appendectomy (2) Status post cholecystectomy (3) Status post lumbar surgery (4) Status post nephrectomy (5) Status post prostatectomy (6) Status post repair hip fracture Family History Cancer FATHER Diabetes mellitus MOTHER Heart disease SISTER Social History Smoking Status: Never Smoker Alcohol Use: none Marital Status: Occupation Status: retired Current/Historical Medications Scheduled Allopurinol (Allopurinol), 150 MG PO QAM Apixaban (Eliquis), 2.5 MG PO BID Aspirin (Aspirin Adult Low Dose), 81 MG PO DAILY Carvedilol (Carvedilol), 3.125 MG PO BID Clotrimazole W/ Betamethasone (Lotrisone), 1 APPLN TOP AMPM Cyanocobalamin (Vitamin B-12), 500 MCG PO DAILY Diltiazem HCl (Diltiazem HCl), 30 MG PO DAILY Ferrous Sulfate (Ferrous Sulfate), 325 MG PO BIDM Furosemide (Lasix), 20 MG PO DAILY Glipizide (Glucotrol), 5 MG PO DAILY Lisinopril (Zestril), 5 MG PO DAILY Mirtazapine (Mirtazapine), 15 MG PO HS Multiple Vitamin (Thera), 1 TAB PO DAILY Pantoprazole (Protonix), 40 MG PO DAILY Quetiapine Fumarate (Seroquel), 12.5 MG PO HS Venlafaxine Hcl (Effexor Xr), 150 MG PO DAILY Venlafaxine Hcl (Effexor Xr), 37.5 MG PO DAILY Vitamin B Complex (Vitamin B Complex), 1 TAB PO DAILY Scheduled PRN Acetaminophen Tab (Tylenol), 650 MG PO for Pain Guaifenesin La (Guaifenesin Er), 600 MG PO Q12H PRN for Cough Lorazepam (Ativan), 0.5 MG PO BID PRN for Anxiety Miscellaneous Medications Nystatin/Triamcinolone (Mycogen ||) Allergies Coded Allergies: No Known Allergies (Verified , 11/09/17) Physical Exam Vital Signs Date Time Temp Pulse Resp B/P (MAP) Pulse Ox O2 Delivery O2 Flow Rate FiO2 11/14/17 19:53 176/109 11/14/17 19:50 79 13 96 5/12/18 18:03 84 18 172/112 96 Nasal Cannula 4.0 11/14/17 18:01 172/112 11/14/17 17:50 81 24 99 11/14/17 17:31 174/108 11/14/17 17:20 82 25 97 11/14/17 17:06 96 Nasal Cannula 4.0 11/14/17 17:01 168/103 11/14/17 16:50 71 28 98 11/14/17 16:36 69 11/14/17 16:34 36.6 81 20 170/107 96 Room Air 11/14/17 16:34 96 Room Air 11/14/17 16:31 156/103 Physical Exam GENERAL: Awake, alert, well-appearing, in no distress HENT: Normocephalic, atraumatic. Oropharynx unremarkable. EYES: Normal conjunctiva. Sclera non-icteric. NECK: Supple. No nuchal rigidity. FROM. No masses. RESPIRATORY: Scattered crackles at the bases. No wheezes. No rales. CARDIAC: Irregular rate. Normal rhythm. No murmurs. No rubs. Extremities warm and well perfused. Pulses equal. No JVD. GI: Soft, non-distended. No tenderness to palpation. No rebound or guarding. No masses. RECTAL: Deferred. MUSCULOSKELETAL: Atraumatic. Chest examination reveals no tenderness. The back is symmetrical on inspection without obvious abnormality. There is no CVA tenderness to palpation. No joint edema. LOWER EXTREMITIES: 2+ lower extremity edema, cool to touch, difficult to palpate distal pulses. NEURO: Demented sensorium. No sensory or motor deficits noted. SKIN: No rash or jaundice noted. Medical Decision & Procedures ER Provider Diagnostic Interpretation: Radiology results as stated below per my review and radiologist interpretation: BILATERAL LOWER EXTREMITY VENOUS DOPPLER HISTORY: Acute edema of the bilateral lower extremities cool, edematous, poor circulation BLE COMPARISON STUDY: None. FINDINGS: There is normal compressibility, flow, and augmentation within the bilateral lower extremity deep venous systems. Mild subcutaneous edema of the bilateral lower extremities. IMPRESSION: No sonographic evidence of deep venous thrombosis within the right or left lower extremity. Electronically signed by: Chicho Garcia M.D. 11/14/2017 7:40 PM Dictated Date/Time: 11/14/2017 7:39 PM CHEST ONE VIEW PORTABLE HISTORY: 87 years-old Male EVALUATE WEAKNESS acute weakness COMPARISON: Chest radiograph 11/09/2017 TECHNIQUE: Portable AP view of the chest FINDINGS: Cardiac silhouette is again enlarged. Suspected trace pleural effusions without pneumothorax. Pulmonary vascular congestion with mild interstitial coarsening has slightly worsened. Subsegmental bibasilar opacities favor atelectasis. Degenerative changes of the spine and shoulders. IMPRESSION: 1. Cardiomegaly with mild pulmonary edema. 2. Suspected trace pleural effusions with bibasilar opacities. The above report was generated using voice recognition software. It may contain grammatical, syntax or spelling errors. Electronically signed by: Chicho Garcia M.D. 11/14/2017 4:46 PM Dictated Date/Time: 11/14/2017 4:44 PM Laboratory Results 11/14/17 17:00 Red Blood Count 4.05, Mean Corpuscular Volume 104.0, Mean Corpuscular Hemoglobin 32.6, Mean Corpuscular Hemoglobin Concent 31.4, Mean Platelet Volume 9.5, Neutrophils (%) (Auto) 67.4, Lymphocytes (%) (Auto) 25.1, Monocytes (%) ( Auto) 5.8, Eosinophils (%) (Auto) 1.3, Basophils (%) (Auto) 0.2, Neutrophils # ( Auto) 4.05, Lymphocytes # (Auto) 1.51, Monocytes # (Auto) 0.35, Eosinophils # ( Auto) 0.08, Basophils # (Auto) 0.01 11/14/17 17:00 Test 11/14/17 17:00 White Blood Count 6.01 K/uL (4.8-10.8) Red Blood Count 4.05 M/uL (4.7-6.1) Hemoglobin 13.2 g/dL (14.0-18.0) Hematocrit 42.1 % (42-52) Mean Corpuscular Volume 104.0 fL (80-100) Mean Corpuscular Hemoglobin 32.6 pg (25-34) Mean Corpuscular Hemoglobin Concent 31.4 g/dl (32-36) Platelet Count 204 K/uL (130-400) Mean Platelet Volume 9.5 fL (7.4-10.4) Neutrophils (%) (Auto) 67.4 % Lymphocytes (%) (Auto) 25.1 % Monocytes (%) (Auto) 5.8 % Eosinophils (%) (Auto) 1.3 % Basophils (%) (Auto) 0.2 % Neutrophils # (Auto) 4.05 K/uL (1.4-6.5) Lymphocytes # (Auto) 1.51 K/uL (1.2-3.4) Monocytes # (Auto) 0.35 K/uL (0.11-0.59) Eosinophils # (Auto) 0.08 K/uL (0-0.5) Basophils # (Auto) 0.01 K/uL (0-0.2) RDW Standard Deviation 63.0 fL (36.4-46.3) RDW Coefficient of Variation 16.8 % (11.5-14.5) Immature Granulocyte % (Auto) 0.2 % Immature Granulocyte # (Auto) 0.01 K/uL (0.00-0.02) Prothrombin Time 13.4 SECONDS (9.0-12.0) Prothromb Time International Ratio 1.3 (0.9-1.1) Activated Partial Thromboplast Time 32.7 SECONDS (21.0-31.0) Partial Thromboplastin Ratio 1.3 Anion Gap 6.0 mmol/L (3-11) Est Creatinine Clear Calc Drug Dose 23.7 ml/min Estimated GFR () 31.5 Estimated GFR (Non- 27.2 BUN/Creatinine Ratio 18.4 (10-20) Calcium Level 8.6 mg/dl (8.5-10.1) Magnesium Level 2.5 mg/dl (1.8-2.4) Total Bilirubin 1.3 mg/dl (0.2-1) Direct Bilirubin 0.7 mg/dl (0-0.2) Aspartate Amino Transf (AST/SGOT) 26 U/L (15-37) Alanine Aminotransferase (ALT/SGPT) 21 U/L (12-78) Alkaline Phosphatase 114 U/L (45-117) Total Creatine Kinase 85 U/L (39-308) Creatine Kinase MB 8.7 ng/ml (0.5-3.6) Creatine Kinase MB Ratio 10.2 (0-3.0) Troponin I 0.106 ng/ml (0-0.045) Total Protein 7.4 gm/dl (6.4-8.2) Albumin 3.3 gm/dl (3.4-5.0) Thyroid Stimulating Hormone (TSH) 1.370 uIu/ml (0.300-4.500) Laboratory results reviewed by me ECG Per My Interpretation Indication: SOB/dyspnea Rate (beats per minute): 76 Rhythm: atrial fibrillation Findings: no acute ischemic change, left axis deviation, prolonged QT ED Course 162: The patient was evaluated in room A9B. A complete history and physical exam was performed. 2013: I discussed the patient with Dr. Colt DANIEL project program manager - she will evaluate the patient for further treatment. 2014: Upon reexamination, the patient was resting comfortably. I discussed the test results and treatment plan with him. The patient will be evaluated for further management. Order Nitropaste. Medical Decision Prior records/ancillary studies reviewed. Triage Nursing notes reviewed and agree them. The patient's history was concerning for shortness of breath. Differential diagnosis: Etiologies such as CHF, cardiac ischemia, pneumonia, COPD, reactive airway disease, pulmonary embolism, pneumothorax, musculoskeletal, infections, gastrointestinal, as well as others were entertained. Physical examination: As above. ER treatment provided: IV Lasix Nitropaste On reassessment the patient felt better. Diagnostic interpretation by me: The electrocardiogram was negative for pathologic change. The labs revealed an unremarkable CBC and chemistry panel. Baseline renal insufficiency. The patient's troponin is mildly elevated but not significantly different than past. His CK-MB has more than doubled since last evaluation. Imaging studies: Chest x-ray as above. Consultation: A consultation was placed with the hospitalist. The case was discussed and diagnostics were reviewed. The patient was evaluated in the ER for further treatment. Medication Reconcilliation Current Medication List: was personally reviewed by me Blood Pressure Screening Patient's blood pressure: Elevated blood pressure Referred to hospitalist. Consults Time Called: 2008 Consulting Physician: Dr. talley Returned Call: 2013 I discussed the patient with Dr. mayank Hubbard project program manager - he will evaluate the patient for further treatment. Impression Primary Impression: SOB (shortness of breath) Additional Impressions: Congestive heart failure Elevated troponin Scribe Attestation The scribe's documentation has been prepared under my direction and personally reviewed by me in its entirety. I confirm that the note above accurately reflects all work, treatment, procedures, and medical decision making performed by me. Departure Information Dispostion Being Evaluated By Hospitalist Referrals Nova Chan D.O. (PCP) Problem Qualifiers"
[2017-11-14] MEDS ORDERED: NITROGLYCERIN 2% OINTMENT 30GM TUBE EXT ONE (20:30)
[2017-11-14] MEDS ORDERED: IV FLUIDS COMPLETED PRN (23:00)
[2017-11-15] VITALS (7 sets, daily range): BP systolic 122–178; BP diastolic 71–91; PULSE 73–92; TEMP 36.5–36.9; O2SAT 94–99; Ht 172.7 cm; Wt 63.6 kg
--- NOTE | 2017-11-15 04:23 | History and Physical ---
History & Physical Date & Time of Service: November 15, 2017 at 03:50 Chief Complaint: SOB Primary Care Physician: Isabell Arce C.RStellaNStellaPStella History of Present Illness Source: hospital records, correction 87 years old male with past medical history of dementia, diabetes type 2, dyslipidemia, hypertension, chronic diastolic heart failure from [facility] was brought via EMS for low oxygen saturation. History was limited due to patient dementia. patient pulse oximetry has been ranging between 80s-100% on room air. As per as per ER chart, patient was not on any sign of distress when brought by EMS. Patient was placed on 2 L nasal cannula and his oxygen saturation was the same ranging between 80s-100%. Patient said that he feels fine and does not wants to get admitted because he does not have any problem of breathing. He was recently in the ER on November 09 for low oxygen level noted from the correction but in the ER oxygen level was normal. During last visit he had the CT chest done that was negative. Currently patient lying in bed comfortable. Pt denies LOC, headache, fevers, chills, diaphoresis, visual changes, neck pain, chest pain, current breathing difficulties, nausea, vomiting , abdominal pain, back pain, melena, hematochezia, urinary symptoms, numbness, weakness, lymphadenopathy, rash. Lab done in the ER showed troponin mildly elevated, creatinine 2.2 that improves from last creatinine back in November 09 that was 2.6. I was planning to discharge patient back to the correction but his 2nd set of troponin was mildly increased. Past Medical/Surgical History Medical Problems: (1) Altered mental status (2) Anxiety (3) Benign hypertension (4) CKD (chronic kidney disease), stage III (5) Coronary artery disease (6) Depression (7) Diabetes mellitus, type II (8) DVT (deep venous thrombosis) (9) Dyslipidemia (10) Dyspnea (11) Elevated troponin (12) Fall (13) History of prostate cancer (14) History of renal calculi (15) Hypertension (16) Insomnia (17) Periprosthetic fracture around internal prosthetic left hip joint (18) Slurred speech (19) Spinal stenosis (20) Thoracic aortic aneurysm (21) Weight loss Surgical Problems: (1) Status post appendectomy (2) Status post cholecystectomy (3) Status post lumbar surgery (4) Status post nephrectomy (5) Status post prostatectomy (6) Status post repair hip fracture Family History Cancer FATHER Diabetes mellitus MOTHER Heart disease SISTER Social History Smoking Status: Unknown if Ever Smoked Marital Status: Housing status: lives with significant other Occupational Status: retired Immunizations History of Influenza Vaccine: Yes History of Tetanus Vaccine?: Unknown History of Pneumococcal: Yes Pneumococcal Date: Aug 28, 2014 History of Hepatitis B Vaccine: Unknown Allergies Coded Allergies: No Known Allergies (Verified , 11/09/17) Home Medications Scheduled Allopurinol (Allopurinol), 150 MG PO QAM Apixaban (Eliquis), 2.5 MG PO BID Aspirin (Aspirin Adult Low Dose), 81 MG PO DAILY Carvedilol (Carvedilol), 3.125 MG PO BID Clotrimazole W/ Betamethasone (Lotrisone), 1 APPLN TOP AMPM Cyanocobalamin (Vitamin B-12), 500 MCG PO DAILY Diltiazem HCl (Diltiazem HCl), 30 MG PO DAILY Ferrous Sulfate (Ferrous Sulfate), 325 MG PO BIDM Furosemide (Lasix), 20 MG PO DAILY Glipizide (Glucotrol), 5 MG PO DAILY Lisinopril (Zestril), 5 MG PO DAILY Mirtazapine (Mirtazapine), 15 MG PO HS Multiple Vitamin (Thera), 1 TAB PO DAILY Pantoprazole (Protonix), 40 MG PO DAILY Quetiapine Fumarate (Seroquel), 12.5 MG PO HS Venlafaxine Hcl (Effexor Xr), 150 MG PO DAILY Venlafaxine Hcl (Effexor Xr), 37.5 MG PO DAILY Vitamin B Complex (Vitamin B Complex), 1 TAB PO DAILY Scheduled PRN Acetaminophen Tab (Tylenol), 650 MG PO for Pain Guaifenesin La (Guaifenesin Er), 600 MG PO Q12H PRN for Cough Lorazepam (Ativan), 0.5 MG PO BID PRN for Anxiety Nystatin (Topical) (Nystatin), BID PRN for SKIN IRRITATION Review of Systems Constitutional: No fever, No chills Eyes: No eye pain, No discharge ENT: No nasal symptoms, No sore throat, No trouble swallowing Respiratory: No cough, No sputum, No shortness of breath Cardiovascular: No chest pain, No palpitations Abdomen: No pain, No nausea, No vomiting Musculoskeletal: No calf pain Genitourinary - Male: No hematuria, No dysuria Neurologic: No paralysis, No vertigo Psychiatric: No substance abuse Endocrine: No fatigue Hematologic / Lymphatic: No abnormal bleeding/bruising Integumentary: No rash, No itch Physical Exam Vital Signs Date Time Temp Pulse Resp B/P (MAP) Pulse Ox O2 Delivery O2 Flow Rate FiO2 11/15/17 02:49 36.5 86 18 164/83 Room Air 92.0 11/15/17 01:06 88 16 159/102 96 Room Air 11/14/17 23:13 82 22 170/104 92 Room Air 11/14/17 21:30 76 16 180/98 99 Nasal Cannula 3.0 11/14/17 20:57 78 16 137/87 97 Nasal Cannula 2.0 11/14/17 20:48 71 11/14/17 19:53 176/109 11/14/17 19:50 79 13 96 11/14/17 18:03 84 18 172/112 96 Nasal Cannula 4.0 11/14/17 18:01 172/112 11/14/17 17:50 81 24 99 11/14/17 17:31 174/108 11/14/17 17:20 82 25 97 11/14/17 17:06 96 Nasal Cannula 4.0 11/14/17 17:01 168/103 11/14/17 16:50 71 28 98 11/14/17 16:36 69 11/14/17 16:34 36.6 81 20 170/107 96 Room Air 11/14/17 16:34 96 Room Air 11/14/17 16:31 156/103 General Appearance: WD/WN, no apparent distress Head: normocephalic, atraumatic Eyes: PERRL, EOMI ENT: normal ENT inspection Neck: no JVD, trachea midline Respiratory/Chest: chest non-tender, no respiratory distress, no accessory muscle use Cardiovascular: regular rate, rhythm, no JVD Abdomen/GI: normal bowel sounds, non tender, soft Back: no CVA tenderness Extremities/Musculoskelatal: no calf tenderness, + swelling Neurologic/Psych: no motor/sensory deficits, alert, normal mood/affect Skin: warm/dry, no rash Diagnostics Laboratory Results Results Past 24 Hours Test 5/12/18 17:00 11/14/17 20:30 11/14/17 23:55 11/15/17 00:51 Range/Units White Blood Count 6.01 4.8-10.8 K/uL Red Blood Count 4.05 4.7-6.1 M/uL Hemoglobin 13.2 14.0-18.0 g/dL Hematocrit 42.1 42-52 % Mean Corpuscular Volume 104.0 80-100 fL Mean Corpuscular Hemoglobin 32.6 25-34 pg Mean Corpuscular Hemoglobin Concent 31.4 32-36 g/dl Platelet Count 204 130-400 K/uL Mean Platelet Volume 9.5 7.4-10.4 fL Neutrophils (%) (Auto) 67.4 % Lymphocytes (%) (Auto) 25.1 % Monocytes (%) (Auto) 5.8 % Eosinophils (%) (Auto) 1.3 % Basophils (%) (Auto) 0.2 % Neutrophils # (Auto) 4.05 1.4-6.5 K/uL Lymphocytes # (Auto) 1.51 1.2-3.4 K/uL Monocytes # (Auto) 0.35 0.11-0.59 K/uL Eosinophils # (Auto) 0.08 0-0.5 K/uL Basophils # (Auto) 0.01 0-0.2 K/uL RDW Standard Deviation 63.0 36.4-46.3 fL RDW Coefficient of Variation 16.8 11.5-14.5 % Immature Granulocyte % (Auto) 0.2 % Immature Granulocyte # (Auto) 0.01 0.00-0.02 K/uL Prothrombin Time 13.4 9.0-12.0 SECONDS Prothromb Time International Ratio 1.3 0.9-1.1 Activated Partial Thromboplast Time 32.7 21.0-31.0 SECONDS Partial Thromboplastin Ratio 1.3 Sodium Level 144 136-145 mmol/L Potassium Level 4.5 3.5-5.1 mmol/L Chloride Level 115 98-107 mmol/L Carbon Dioxide Level 23 21-32 mmol/L Anion Gap 6.0 3-11 mmol/L Blood Urea Nitrogen 39 7-18 mg/dl Creatinine 2.12 0.60-1.40 mg/dl Est Creatinine Clear Calc Drug Dose 23.7 ml/min Estimated GFR () 31.5 Estimated GFR (Non- 27.2 BUN/Creatinine Ratio 18.4 10-20 Random Glucose 168 70-99 mg/dl Calcium Level 8.6 8.5-10.1 mg/dl Magnesium Level 2.5 1.8-2.4 mg/dl Total Bilirubin 1.3 0.2-1 mg/dl Direct Bilirubin 0.7 0-0.2 mg/dl Aspartate Amino Transf (AST/SGOT) 26 15-37 U/L Alanine Aminotransferase (ALT/SGPT) 21 12-78 U/L Alkaline Phosphatase 114 45-117 U/L Total Creatine Kinase 85 39-308 U/L Creatine Kinase MB 8.7 0.5-3.6 ng/ml Creatine Kinase MB Ratio 10.2 0-3.0 Troponin I 0.106 0.122 0-0.045 ng/ml Total Protein 7.4 6.4-8.2 gm/dl Albumin 3.3 3.4-5.0 gm/dl Thyroid Stimulating Hormone (TSH) 1.370 0.300-4.500 uIu/ml Urine Color DK YELLOW Urine Appearance CLEAR CLEAR Urine pH 5.0 4.5-7.5 Urine Specific [place] 1.024 1.000-1.030 Urine Protein 1+ NEG Urine Glucose (UA) NEG NEG Urine Ketones NEG NEG Urine Occult Blood NEG NEG Urine Nitrite NEG NEG Urine Bilirubin NEG NEG Urine Urobilinogen NEG NEG Urine Leukocyte Esterase LARGE NEG Urine WBC (Auto) >30 0-5 /hpf Urine RBC (Auto) 0-4 0-4 /hpf Urine Hyaline Casts (Auto) 1-5 0-5 /lpf Urine Epithelial Cells (Auto) 5-10 0-5 /lpf Urine Bacteria (Auto) 2+ NEG Diagnostic Radiology CHEST ONE VIEW PORTABLE HISTORY: 87 years-old Male EVALUATE WEAKNESS acute weakness COMPARISON: Chest radiograph 11/09/2017 TECHNIQUE: Portable AP view of the chest FINDINGS: Cardiac silhouette is again enlarged. Suspected trace pleural effusions without pneumothorax. Pulmonary vascular congestion with mild interstitial coarsening has slightly worsened. Subsegmental bibasilar opacities favor atelectasis. Degenerative changes of the spine and shoulders. IMPRESSION: 1. Cardiomegaly with mild pulmonary edema. 2. Suspected trace pleural effusions with bibasilar opacities. The above report was generated using voice recognition software. It may contain grammatical, syntax or spelling errors. Electronically signed by: Chicho Garcia M.D. ART DOP LOWER EXT BILAT HISTORY: 87 years-old Male cool, edematous, poor circulation BLE code bilateral lower extremities COMPARISON: Duplex venous Doppler study of same day TECHNIQUE: Multiple real-time sonographic images of the bilateral lower extremity arterial structures were obtained assessing grayscale appearance, color and spectral flow FINDINGS: RIGHT: Triphasic waveforms are seen within the common femoral, profunda femoris and superficial femoral arteries. Mildly blunted biphasic waveforms of the popliteal artery. Blunted monophasic waveforms of the posterior tibial, peroneal, anterior tibial and dorsalis pedis arteries. Reversal flow is noted within the dorsalis prescott artery with spectral broadening and decreased peak systolic velocity of 15 cm/s. No definite flow identified within the distal peroneal and anterior tibial arteries. ABIs were conducted secondary to noncompressible vessels. Prominent atherosclerotic plaquing throughout. LEFT: Triphasic waveforms are noted within the common femoral artery. Blunted biphasic waveforms within the profunda femoris. Triphasic waveforms within the superficial femoral artery. Blunted biphasic waveforms of the distal superficial femoral artery with mixed plaquing. Blunted monophasic waveforms within the popliteal artery with mild spectral broadening. The distal popliteal artery demonstrates very blunted biphasic waveforms. Biphasic waveforms are noted within the posterior tibial artery with elevated peak systolic velocities measuring up to 241 cm/s. No flow identified within the peroneal artery suggesting vessel occlusion. Monophasic waveforms in the anterior tibial artery with elevated peak systolic velocities measuring up to 322 cm/s. No flow identified within the dorsalis pedis artery. IMPRESSION: 1. No flow identified within the left dorsalis pedis and peroneal arteries suggesting age-indeterminate vessel occlusion. 2. Elevated peak systolic velocities within the left posterior tibial and anterior tibial arteries suggest high-grade stenosis. 3. Reversal of flow within the dorsalis pedis artery on the right also suggests high-grade stenosis. 4. Predominately triphasic waveforms above the level of the knees bilaterally as above. These findings could be further evaluated with digital subtraction angiography. The above report was generated using voice recognition software. It may contain grammatical, syntax or spelling errors. Electronically signed by: Chicho Garcia M.D. 11/14/2017 8:06 PM Dictated Date/Time: 11/14/2017 7:59 PM BILATERAL LOWER EXTREMITY VENOUS DOPPLER HISTORY: Acute edema of the bilateral lower extremities cool, edematous, poor circulation BLE COMPARISON STUDY: None. FINDINGS: There is normal compressibility, flow, and augmentation within the bilateral lower extremity deep venous systems. Mild subcutaneous edema of the bilateral lower extremities. IMPRESSION: No sonographic evidence of deep venous thrombosis within the right or left lower extremity. Electronically signed by: Chicho Garcia M.D. 11/14/2017 7:40 PM Dictated Date/Time: 11/14/2017 7:39 PM Impression Assessment and Plan Low Oxygen saturation Denies any shortness of breath CXR showed Cardiomegaly with mild pulmonary edema. Pulse oximetry ranging from 80s-100% Received Lasix in the ER Seems to be due to the oximetry sensor does not capture the reading Will observe and discharge in a.m. if stable Elevated troponin That is chronic Mostly due to CKD EKG showed no ischemic change. Asymptomatic We will follow third set of troponin If trop spikes, will get an ECHO Continue aspirin, and carvedilol Monitor on telemetry Last ECHO on 03/20 * Normal LV systolic function and wall thickness. Normal LV systolic function, EF 55-60%. No segmental left ventricular wall motion abnormalities are noted. Grade I diastolic dysfunction. Aortic valve sclerosis moderate, without significant aortic valvular stenosis. Mild aortic regurgitation. Mild mitral annular calcification. Dementia At baseline CKD stage IV Creatinine improved to 2.1 compared to the last creatinine that was 2.6 back in November 09 Avoid nephrotoxic agent Monitor BMP Diabetes type II Recent hemoglobin A1c 7.1 on 10/21 We will hold oral DM med Insulin sliding scale Monitor blood sugar Chronic A. fib Rate controlled Continue diltiazem, carvedilol and apixaban DVT prophylaxis ON ELIQUIS CODE STATUS DNR (as per correction chart from advance directive) Disposition We will discharge back to [facility] in a.m. Advanced Directives Existing Living Will: Yes Resuscitation Status VTE Prophylaxis Will order VTE Prophylaxis: Yes
[2017-11-15] MEDS ORDERED: NYST100033 (04:29)
[2017-11-15] MEDS ORDERED: ACETAMINOPHEN 325 MG TAB PO PRN (04:30)
[2017-11-15] MEDS ORDERED: LORAZEPAM 0.5 MG TAB PO PRN (04:30)
[2017-11-15] MEDS: CEFTRIAXONE SOD INJ 1 GM in DEXTROSE 5% ADD-VANTAGE 50ML 50 ML IV SCH (08:22)
[2017-11-15] MEDS: MULTIVITAMIN TAB PO SCH (08:25)
[2017-11-15] MEDS: LISINOPRIL 5 MG TAB PO SCH (08:25)
[2017-11-15] MEDS: PANTOprazole SOD 40 MG TAB PO SCH (08:26)
[2017-11-15] MEDS: ALLOPURINOL 100 MG TAB PO SCH (08:26)
[2017-11-15] MEDS: CARVEDILOL 3.125 MG TAB PO SCH ×2 (08:27→21:34)
[2017-11-15] MEDS: FERROUS SULFATE 325 MG TAB PO SCH ×2 (08:28→16:58)
[2017-11-15] MEDS: CYANOCOBALAMIN 500 MCG TAB (VIT B-12) PO SCH (08:28)
[2017-11-15] MEDS: VENLAFAXINE HCL XR 150 MG CAPXR PO SCH (08:28)
[2017-11-15] MEDS: VENLAFAXINE HCL XR 37.5 MG CAPXR PO SCH (08:29)
[2017-11-15] MEDS: APIXABAN 2.5 MG TAB PO SCH ×2 (08:29→21:34)
[2017-11-15] MEDS ORDERED: ASPIRIN 81 MG ECTAB PO SCH (09:00)
[2017-11-15] MEDS ORDERED: FUROSEMIDE 20 MG TAB PO SCH (09:00)
[2017-11-15] MEDS ORDERED: DILTIAZEM HCL 30 MG TAB PO SCH (09:00)
--- NOTE | 2017-11-15 09:56 | ECHOCARDIOGRAM REPORT ---
*NOTICE TO RECEIVING CONSTITUTION PARTY AGENCY This information is strictly Confidential and protected under [place] law. [place] law prohibits you from making any further disclosure of this information unless further disclosure is expressly permitted by the written consent of the person to whom it pertains or is authorized by law. A general authorization for the release of medical or other information is not sufficient for this purpose. Hospital accepts no responsibility if the information is made available to any other person, INCLUDING THE PATIENT. Interpretation Summary * Name: CALI WHALEY Study Date: 11/15/2017 08:45 AM BP: 164/84 mmHg * Patient Location: [facility]\S\N286\S\2 HR: 84 * : 1930 (M/d/yyyy) Gender: Male Height: 68 in * Age: 87 yrs Ethnicity: CA Weight: 154 lb * Ordering Physician: Adamaris Shah * Referring Physician: No Doctor, Assigned * Performed By: Charlotte Garcia RDCS * * Reason For Study: A-Fib * BSA: 1.8 m2 * -- Conclusions -- * Normal LV chamber size with mild concentric LVH. * Severely reduced LV systolic function with severe global hypokinesis, EF 25-30%. * An apical thrombus is suspected but patient's desire to terminate study precluded the use of Definity to confirm. * The right ventricular cavity size is normal (basal dimension <4.2 cm in right ventricular apical 4-chamber view). Reduced RV systolic function by TAPSE. * Aortic valve sclerosis moderate, without significant aortic valvular stenosis. Mild aortic regurgitation. * Mild mitral regurgitation. * Mild tricuspid regurgitation. * Mild left atrial enlargement. Procedure Details * A complete two-dimensional transthoracic echocardiogram was performed (2D, M-mode, Doppler and color flow Doppler). Left Ventricle * The left ventricle is normal in size. * There is mild concentric left ventricular hypertrophy. * Ejection Fraction = 30-35%. * Left ventricular systolic function is severely reduced. * There is severe global hypokinesis of the left ventricle. Right Ventricle * The right ventricular cavity size is normal (basal dimension <4.2 cm in right ventricular apical 4-chamber view). * The right ventricular systolic function is reduced as assessed by tricuspid annular plane systolic excursion (TAPSE) (TAPSE <1.6 cm). Atria * The left atrium is mildly dilated. * Right atrial size is normal. * No ASD detected; PFO is not assessed. Mitral Valve * The mitral valve leaflets appear thickened, but open well. * There is no mitral valve stenosis. * There is mild mitral regurgitation. Tricuspid Valve * The tricuspid valve anatomy is normal. * There is no tricuspid stenosis. * There is mild tricuspid regurgitation. Aortic Valve * The aortic valve is trileaflet. * Aortic valve sclerosis moderate, without significant aortic valvular stenosis. * Mild aortic regurgitation. Pulmonic Valve * The pulmonary valve is not well seen, but the Doppler examination is normal without significant regurgitation or stenosis. Great Vessels * The aortic root is normal size. Pericardium/Pleural * There is no pericardial effusion. MMode 2D Measurements and Calculations IVSd 1.1 cm LVIDd 4.8 cm LVIDs 4.1 cm LVPWd 1.1 cm IVS/LVPW 1.0 FS 14.3 % EDV(Teich) 107.3 ml ESV(Teich) 74.6 ml EF(Teich) 30.5 % EDV(cubed) 110.4 ml ESV(cubed) 69.4 ml EF(cubed) 37.1 % LV mass(C)d 192.3 grams LV mass(C)dI 105.1 grams/m\S\2 SV(Teich) 32.7 ml SI(Teich) 17.9 ml/m\S\2 SV(cubed) 41.0 ml SI(cubed) 22.4 ml/m\S\2 Ao root diam 3.3 cm Ao root area 8.7 cm\S\2 ACS 1.6 cm LA dimension 4.3 cm asc Aorta Diam 3.5 cm LA/Ao 1.3 LVOT diam 2.0 cm LVOT area 3.3 cm\S\2 LVAd ap4 32.9 cm\S\2 LVLd ap4 8.4 cm EDV(MOD-sp4) 106.1 ml EDV(sp4-el) 110.1 ml LVAs ap4 27.5 cm\S\2 LVLs ap4 8.0 cm ESV(MOD-sp4) 77.1 ml ESV(sp4-el) 80.6 ml EF(MOD-sp4) 27.3 % EF(sp4-el) 26.7 % LVAd ap2 33.8 cm\S\2 LVLd ap2 8.8 cm EDV(MOD-sp2) 109.4 ml EDV(sp2-el) 109.9 ml LVAs ap2 26.5 cm\S\2 LVLs ap2 8.4 cm ESV(MOD-sp2) 72.7 ml ESV(sp2-el) 70.7 ml EF(MOD-sp2) 33.5 % EF(sp2-el) 35.7 % LVLd %diff 5.4 % EDV(MOD-bp) 110.0 ml LVLs %diff 5.7 % ESV(MOD-bp) 76.0 ml EF(MOD-bp) 31.0 % SV(MOD-sp4) 29.0 ml SI(MOD-sp4) 15.8 ml/m\S\2 SV(MOD-sp2) 36.7 ml SI(MOD-sp2) 20.0 ml/m\S\2 SV(MOD-bp) 34.1 ml SI(MOD-bp) 18.6 ml/m\S\2 SV(sp4-el) 29.4 ml SI(sp4-el) 16.1 ml/m\S\2 SV(sp2-el) 39.2 ml SI(sp2-el) 21.4 ml/m\S\2 Doppler Measurements and Calculations MV E max rodrigue 115.4 cm/sec MV dec time 0.17 sec Ao V2 max 134.1 cm/sec Ao max PG 7.2 mmHg Ao max PG (full) 4.9 mmHg NINO(V,A) 1.8 cm\S\2 NINO(V,D) 1.8 cm\S\2 AI max rodrigue 418.4 cm/sec AI max PG 70.2 mmHg AI dec slope 161.6 cm/sec\S\2 AI P1/2t 758.2 msec LV V1 max PG 2.2 mmHg LV V1 max 74.8 cm/sec MR max rodrigue 483.2 cm/sec MR max PG 93.4 mmHg MR mean rodrigue 348.7 cm/sec MR mean PG 56.1 mmHg MR VTI 134.0 cm PA V2 max 65.6 cm/sec PA max PG 1.7 mmHg PA acc slope 353.6 cm/sec\S\2 PA acc time 0.13 sec PI max rodrigue 141.5 cm/sec PI max PG 8.0 mmHg PI dec slope 113.0 cm/sec\S\2 PI P1/2t 366.6 msec TR max rodrigue 187.9 cm/sec PA pr(Accel) 20.7 mmHg
[2017-11-15] MEDS ORDERED: GLUCOSE 40% GEL 15 GM TUBE PO PRN (11:30)
[2017-11-15] MEDS ORDERED: GLUCAGON FOR INJ 1 MG VIAL SQ PRN (11:30)
[2017-11-15] MEDS ORDERED: CARBOHYDRATES FOR HYPOGLYCEMIA PO PRN (11:30)
[2017-11-15] MEDS ORDERED: DEXTROSE 50% 50 ML SYR IV PRN (11:30)
[2017-11-15] MEDS ORDERED: GLUCOSE 10 TABS/TUBE PO PRN (11:30)
--- NOTE | 2017-11-15 11:38 | Progress Note ---
Internal Med Progress Note Date of Service: November 15, 2017. Provider Documentation: SUBJECTIVE: Seen and examined at bedside Denies SOB, chest pain, abdominal pain, dysuria H/O unreliable given H/O dementia, hearing loss No family at bedside Seemed to be comfortable Discussed with POA in detail OBJECTIVE: Vital Signs-as noted below Physical Exam: General Appearance:Moderately built and nourished, no apparent distress Head: normocephalic, Atraumatic Eyes: normal inspection, EOMI, PERRL Neck: supple, Trachea midline Respiratory/Chest: coarse breath sounds, CTA Cardiovascular: Irregularly irregular, No murmur Abdomen/GI:Soft, Non tender, Bowel sounds present Extremities/Musculoskelatal:normal inspection, Trace edema Neurologic/Psych:AAOX3, grossly no focal neurological deficits Skin: normal color, warm Lab data as noted below. ASSESSMENT & PLAN: Acute on chronic systolic and diastolic CHF Acute respiratory failure Denies any SOB, chest pain CXR:Cardiomegaly with mild pulmonary edema Received lasix in ED ECHO:Severe global hypokinesis, EF 25-30%. Continue diuretics, Beta Duglas, ACEs Monitor I/Os, daily weight Oxygen support PRN Cardiology consulted May need 2 step prior to discharge Atrial Fibrillation: Rate controlled Continue home meds for rate control On Eliquis for anticoagulation Abnormal UA ?UTI Denies dysuria, urinary frequency but history unreliable Urine culture ordered Empirically start on Ceftriaxone ? 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 * Severely reduced LV systolic function with severe global hypokinesis, EF 25 -30%. * An apical thrombus is suspected but patient's desire to terminate study precluded the use of Definity to confirm. * The right ventricular cavity size is normal (basal dimension <4.2 cm in right ventricular apical 4-chamber view). Reduced RV systolic function by TAPSE. * Aortic valve sclerosis moderate, without significant aortic valvular stenosis. Mild aortic regurgitation. * Mild mitral regurgitation. * Mild tricuspid regurgitation. * Mild left atrial enlargement. Vital Signs: Date Time Temp Pulse Resp B/P (MAP) Pulse Ox O2 Delivery O2 Flow Rate FiO2 11/15/17 08:00 99 Nasal Cannula 2.0 11/15/17 07:08 84 164/84 (110) 99 Nasal Cannula 2.0 11/15/17 07:02 36.9 92 16 178/84 (115) 11/15/17 04:00 Room Air 11/15/17 02:49 36.5 86 18 164/83 Room Air 92.0 11/15/17 01:06 88 16 159/102 96 Room Air 11/14/17 23:13 82 22 170/104 92 Room Air 11/14/17 21:30 76 16 180/98 99 Nasal Cannula 3.0 11/14/17 20:57 78 16 137/87 97 Nasal Cannula 2.0 11/14/17 20:48 71 11/14/17 19:53 176/109 11/14/17 19:50 79 13 96 11/14/17 18:03 84 18 172/112 96 Nasal Cannula 4.0 11/14/17 18:01 172/112 11/14/17 17:50 81 24 99 11/14/17 17:31 174/108 11/14/17 17:20 82 25 97 11/14/17 17:06 96 Nasal Cannula 4.0 11/14/17 17:01 168/103 11/14/17 16:50 71 28 98 11/14/17 16:36 69 11/14/17 16:34 36.6 81 20 170/107 96 Room Air 11/14/17 16:34 96 Room Air 11/14/17 16:31 156/103 Lab Results: Results Past 24 Hours Test 11/14/17 17:00 11/14/17 20:30 11/14/17 23:55 11/15/17 00:51 Range/Units White Blood Count 6.01 4.8-10.8 K/uL Red Blood Count 4.05 4.7-6.1 M/uL Hemoglobin 13.2 14.0-18.0 g/dL Hematocrit 42.1 42-52 % Mean Corpuscular Volume 104.0 80-100 fL Mean Corpuscular Hemoglobin 32.6 25-34 pg Mean Corpuscular Hemoglobin Concent 31.4 32-36 g/dl Platelet Count 204 130-400 K/uL Mean Platelet Volume 9.5 7.4-10.4 fL Neutrophils (%) (Auto) 67.4 % Lymphocytes (%) (Auto) 25.1 % Monocytes (%) (Auto) 5.8 % Eosinophils (%) (Auto) 1.3 % Basophils (%) (Auto) 0.2 % Neutrophils # (Auto) 4.05 1.4-6.5 K/uL Lymphocytes # (Auto) 1.51 1.2-3.4 K/uL Monocytes # (Auto) 0.35 0.11-0.59 K/uL Eosinophils # (Auto) 0.08 0-0.5 K/uL Basophils # (Auto) 0.01 0-0.2 K/uL RDW Standard Deviation 63.0 36.4-46.3 fL RDW Coefficient of Variation 16.8 11.5-14.5 % Immature Granulocyte % (Auto) 0.2 % Immature Granulocyte # (Auto) 0.01 0.00-0.02 K/uL Prothrombin Time 13.4 9.0-12.0 SECONDS Prothromb Time International Ratio 1.3 0.9-1.1 Activated Partial Thromboplast Time 32.7 21.0-31.0 SECONDS Partial Thromboplastin Ratio 1.3 Sodium Level 144 136-145 mmol/L Potassium Level 4.5 3.5-5.1 mmol/L Chloride Level 115 98-107 mmol/L Carbon Dioxide Level 23 21-32 mmol/L Anion Gap 6.0 3-11 mmol/L Blood Urea Nitrogen 39 7-18 mg/dl Creatinine 2.12 0.60-1.40 mg/dl Est Creatinine Clear Calc Drug Dose 23.7 ml/min Estimated GFR () 31.5 Estimated GFR (Non- 27.2 BUN/Creatinine Ratio 18.4 10-20 Random Glucose 168 70-99 mg/dl Calcium Level 8.6 8.5-10.1 mg/dl Magnesium Level 2.5 1.8-2.4 mg/dl Total Bilirubin 1.3 0.2-1 mg/dl Direct Bilirubin 0.7 0-0.2 mg/dl Aspartate Amino Transf (AST/SGOT) 26 15-37 U/L Alanine Aminotransferase (ALT/SGPT) 21 12-78 U/L Alkaline Phosphatase 114 45-117 U/L Total Creatine Kinase 85 39-308 U/L Creatine Kinase MB 8.7 0.5-3.6 ng/ml Creatine Kinase MB Ratio 10.2 0-3.0 Troponin I 0.106 0.122 0-0.045 ng/ml Total Protein 7.4 6.4-8.2 gm/dl Albumin 3.3 3.4-5.0 gm/dl Thyroid Stimulating Hormone (TSH) 1.370 0.300-4.500 uIu/ml Urine Color DK YELLOW Urine Appearance CLEAR CLEAR Urine pH 5.0 4.5-7.5 Urine Specific [place] 1.024 1.000-1.030 Urine Protein 1+ NEG Urine Glucose (UA) NEG NEG Urine Ketones NEG NEG Urine Occult Blood NEG NEG Urine Nitrite NEG NEG Urine Bilirubin NEG NEG Urine Urobilinogen NEG NEG Urine Leukocyte Esterase LARGE NEG Urine WBC (Auto) >30 0-5 /hpf Urine RBC (Auto) 0-4 0-4 /hpf Urine Hyaline Casts (Auto) 1-5 0-5 /lpf Urine Epithelial Cells (Auto) 5-10 0-5 /lpf Urine Bacteria (Auto) 2+ NEG Test 11/15/17 06:19 11/15/17 08:35 Range/Units Troponin I 0.137 0-0.045 ng/ml Bedside Glucose 141 70-99 mg/dl Microbiology Results 11/15/17 MRSA DNA Surveillance Screen - Final, Complete Specimen Negative for MRSA by DNA Probe
--- NOTE | 2017-11-15 12:03 | Progress Note ---
Progress Note Date of Service November 15, 2017. Progress Note Called and spoke with POA/granddaughter Keysha Arce. Informed her of current cardiac status and possible interventions that could be performed. She is in agreement with medical therapy only. She also asked if the patient could be discharged back to half-way as soon as possible given the delirium that occurs with hospitalizations. I agree with this and will coordinate with Dr. Willoughby. Ms. Arce thanked me for the update and voiced that she was satisfied with discussion.
[2017-11-15] MEDS ORDERED: PROMETHAZINE HCL INJ 12.5 MG in SODIUM CHLORIDE 0.9% 50ML 50 ML IV PRN (12:45)
[2017-11-15] MEDS: INSULIN ASPART 100 UNITS/ML 3 ML PEN SC SCH ×3 (12:57→21:38)
[2017-11-15] MEDS: ASPIRIN 81 MG CHEW PO SCH (13:04)
--- NOTE | 2017-11-15 13:13 | CARDIOLOGY CONSULTATION ---
DATE OF CONSULTATION: 11/15/2017 Inpatient consultation. CONSULTATION REQUESTED BY: Dr. Willoughby. REASON FOR CONSULTATION: Severely reduced LV systolic function. HISTORY OF PRESENT ILLNESS: Mr. Rivera is a very pleasant yet severely demented 87-year-old gentleman who was sent to [facility] from his halfway [facility] for reports of oxygen desaturations. The patient's dementia is severe enough to the point where he is unable to contribute to his healthcare and he does not respond appropriately to questioning. History obtained through review of medical records. Apparently, the patient was found to be hypoxic with O2 sats in the 80s-90s at the halfway he was sent to the Emergency Department and the patient denies any complaints. In the Emergency Department, he was given a dose of Lasix. A chest x-ray was performed which was not overwhelming and volume overloaded and he was admitted to telemetry. Currently at rest, the patient does not appear to be in any acute distress. No symptoms are reported by nursing. PAST SURGICAL HISTORY: 1. Appendectomy. 2. Cholecystectomy. 3. Lumbar surgery. 4. Nephrectomy. 5. Prostatectomy. 6. Hip surgery. MEDICAL ILLNESSES: 1. History of DVT. 2. Paroxysmal atrial fibrillation on chronic Eliquis anticoagulation. 3. Severe dementia, Alzheimer's type. 4. Hypertension. 5. Stage III chronic kidney disease. 6. Chart history of coronary artery disease. 7. Dyslipidemia. 8. Prostate cancer. 9. Thoracic aortic aneurysm turned down by cardiothoracic surgery for intervention. FAMILY HISTORY: Noncontributory. SOCIAL HISTORY: It is unknown if the patient ever smoked. He is . He currently resides at [facility]. REVIEW OF SYSTEMS: Unobtainable given the patient's mental status. ALLERGIES: No known drug allergies. MEDICATIONS AN OUTPATIENT: 1. Aspirin 81 mg daily. 2. Carvedilol 3.125 mg b.i.d. 3. Eliquis 2.5 mg b.i.d. 4. Diltiazem 30 mg daily. 5. Lasix 20 mg daily. 6. Lisinopril 5 mg daily. 7. Protonix daily. 8. Effexor daily. 9. Glucotrol daily. 10. Iron daily. 11. Allopurinol daily. PHYSICAL EXAMINATION: VITAL SIGNS: Temperature 36.5, pulse 73, respiratory rate 12, blood pressure 140/79. GENERAL: Awake, alert, oriented x3 in no acute distress. HEENT: Normocephalic, atraumatic. Pupils equal, round, and reactive to light and accommodation. Extraocular muscles intact. Anicteric sclerae. Moist mucous membranes. NECK: No JVD, no bruit. CARDIOVASCULAR: Irregularly irregular, unable to appreciate any murmurs, rubs or gallops. PULMONARY: Poor air movement at the bilateral bases, otherwise clear. ABDOMEN: Bowel sounds x4, soft. No rebound, guarding, tenderness. No organomegaly. EXTREMITIES: No clubbing, cyanosis or edema. +2 pedal pulses bilaterally. SKIN: Warm and dry. TEST RESULTS: A 2D echocardiogram performed today was read as normal LV chamber size and mild concentric LVH, severely reduced LV systolic function with severe global hypokinesis, EF 25-30%. An apical thrombus is suspected but patient's desire to terminate study precluded the use of Definity to confirm. Left ventricular cavity size is normal with reduced LV systolic function by TAPSE. Moderate aortic valve sclerosis without stenosis, mild aortic regurgitation, mild mitral regurgitation, mild tricuspid regurgitation, mild left atrial enlargement. IMPRESSION: 1. Newly-discovered cardiomyopathy, etiology unknown. 2. Paroxysmal atrial fibrillation on chronic Eliquis anticoagulation. 3. Severe dementia, unable to participate in medical care. RECOMMENDATIONS: It was my pleasure to see Mr. Rivera in consultation today. From a cardiac standpoint, given the patient's current clinical status and his severe dementia, I believe the most prudent course of action would be for medical therapy only and I do not believe any invasive procedures would benefit the patient. So at this point, his vital signs are stable. His blood pressure and heart rate are well controlled so the only change I would make at this point would be to stop his Cardizem, which he is receiving as a short-acting tablet and only receiving once a day and given the fact that calcium channel blockers can reduce or can impair LV systolic function, so that will be discontinued. Otherwise, I am highly suspicious that he does have an apical thrombus but when he was previously seen here by cardiology which is the only time he has been seen by game programmer to my knowledge, he was deemed not a Coumadin candidate. His primary care physician does have him on Eliquis as an outpatient and while Eliquis is not approved for treatment of apical LV thrombus, I do believe it is the prudent course of action at this point so no other medication changes will be made. I will attempt to contact his power of assistant city attorney who the chart has listed as his granddaughter to update on the status and the medical recommendations. Otherwise, the patient does not examine as volume overloaded and I do not believe further hospitalization is necessary from a cardiac standpoint.
[2017-11-15] MEDS ORDERED: QUETIAPINE FUMARATE 25 MG TAB PO SCH (21:00)
[2017-11-15] MEDS ORDERED: MIRTAZAPINE SOLTAB 15 MG PO SCH (21:00)
[2017-11-15] MEDS: FUROSEMIDE 20 MG TAB PO SCH (21:35)
[2017-11-15] MEDS: INSULIN GLARGINE SOLOSTAR 100 UNITS/ML 3 ML PEN SC SCH (21:40)
[2017-11-16 03:48] VITALS: BP 141/98; PULSE 96; TEMP 36.4; O2SAT 94
[2017-11-16 06:14] LABS: HEMATOCRIT 41.4 % (42-52); HEMOGLOBIN 13.1 g/dL (14.0-18.0); MEAN CELL VOLUME 104.3 fL (80-100); MEAN CORPUSCULAR HGB CONC 31.6 g/dl (32-36); PLATELET COUNT 194 K/uL (130-400); RED CELL DISTRIBUTION WIDTH CV 16.3 % (11.5-14.5); RED CELL DISTRIBUTION WIDTH SD 61.9 fL (36.4-46.3); WHITE BLOOD COUNT 6.37 K/uL (4.8-10.8)
[2017-11-16 06:31] LABS: CALCIUM 8.8 mg/dl (8.5-10.1); CREATININE 2.12 mg/dl (0.60-1.40); POTASSIUM 4.4 mmol/L (3.5-5.1)
[2017-11-16 06:35] LABS: HEMOGLOBIN A1C 7.1 % (4.5-5.6)
[2017-11-16 07:18] VITALS: BP 160/83; PULSE 94; TEMP 36.2; O2SAT 91
[2017-11-16] MEDS: ALLOPURINOL 100 MG TAB PO SCH (08:03)
[2017-11-16] MEDS: PANTOprazole SOD 40 MG TAB PO SCH (08:03)
[2017-11-16] MEDS: MULTIVITAMIN TAB PO SCH (08:03)
[2017-11-16] MEDS: VENLAFAXINE HCL XR 150 MG CAPXR PO SCH (08:04)
[2017-11-16] MEDS: CYANOCOBALAMIN 500 MCG TAB (VIT B-12) PO SCH (08:04)
[2017-11-16] MEDS: FUROSEMIDE 20 MG TAB PO SCH (08:04)
[2017-11-16] MEDS: CARVEDILOL 3.125 MG TAB PO SCH (08:04)
[2017-11-16] MEDS: VENLAFAXINE HCL XR 37.5 MG CAPXR PO SCH (08:05)
[2017-11-16] MEDS: APIXABAN 2.5 MG TAB PO SCH (08:05)
[2017-11-16] MEDS: LISINOPRIL 5 MG TAB PO SCH (08:05)
[2017-11-16] MEDS: CEFTRIAXONE SOD INJ 1 GM in DEXTROSE 5% ADD-VANTAGE 50ML 50 ML IV SCH (08:05)
[2017-11-16] MEDS: FERROUS SULFATE 325 MG TAB PO SCH (08:05)
[2017-11-16] MEDS: INSULIN GLARGINE SOLOSTAR 100 UNITS/ML 3 ML PEN SC SCH (08:09)
[2017-11-16] MEDS: INSULIN ASPART 100 UNITS/ML 3 ML PEN SC SCH ×2 (08:09→12:22)
--- NOTE | 2017-11-16 10:02 | Progress Note ---
Internal Med Progress Note Date of Service: November 16, 2017. Provider Documentation: SUBJECTIVE: Seen and examined at bedside Denies SOB, chest pain, dysuria H/O unreliable given H/O dementia, hearing loss No family at bedside Discussed with Cardiology OBJECTIVE: Vital Signs-as noted below Physical Exam: General Appearance:Moderately built and nourished, no apparent distress Head: normocephalic, Atraumatic Eyes: normal inspection, EOMI, PERRL Neck: supple, Trachea midline Respiratory/Chest: coarse breath sounds, CTA Cardiovascular: Irregularly irregular, No murmur Abdomen/GI:Soft, Non tender, Bowel sounds present Extremities/Musculoskelatal:normal inspection, Trace edema Neurologic/Psych:AAOX3, grossly no focal neurological deficits Skin: normal color, warm Lab data as noted below. ASSESSMENT & PLAN: Acute on chronic systolic and diastolic CHF: Systolic function worsened:Unclear Etiology Acute respiratory failure Denies any SOB, chest pain CXR:Cardiomegaly with mild pulmonary edema Received lasix in ED ECHO:Severe global hypokinesis, EF 25-30%. Continue diuretics, Beta Duglas, ACEs Increased lasix to 20mg BID Cardizem discontinued as per Cardiology recommendations Monitor I/Os, daily weight Oxygen support PRN Appreciate Cardiology Input Saturating well on Room Air Patient is wheelchair bound at baseline, so will defer 2 step Atrial Fibrillation: Rate controlled Continue current medications On Eliquis for anticoagulation Abnormal UA ?UTI Denies dysuria, urinary frequency but history unreliable Urine culture:pending Repeat UA: normal Empirically on Ceftriaxone Day # 2 ? 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 Monitor renal function Avoid Nephrotoxic agents as able DM II: Hold oral agents ISS, Basal Insulin update A1C Monitor BGs Dementia: No signs of agitation PAD: Continue Aspirin DVT Px: On Eliquis Code Status: DNR Disposition: Plan to discharge back to [facility] Today Follow up with your PCP in 1 week Follow up with your Foley Artist on Loyda 18th, 2018 at 10:45AM Seek immediate medical attention if your symptoms reoccur or worsen Complete the antibiotic course as prescribed Medication changes: Your Cardizem was discontinued Your Lasix was increased to 20mg twice a day PROCEDURES: ECHO: Normal LV chamber size with mild concentric LVH. * Severely reduced LV systolic function with severe global hypokinesis, EF 25 -30%. * An apical thrombus is suspected but patient's desire to terminate study precluded the use of Definity to confirm. * The right ventricular cavity size is normal (basal dimension <4.2 cm in right ventricular apical 4-chamber view). Reduced RV systolic function by TAPSE. * Aortic valve sclerosis moderate, without significant aortic valvular stenosis. Mild aortic regurgitation. * Mild mitral regurgitation. * Mild tricuspid regurgitation. * Mild left atrial enlargement. Vital Signs: Date Time Temp Pulse Resp B/P (MAP) Pulse Ox O2 Delivery O2 Flow Rate FiO2 11/16/17 08:15 Room Air 11/16/17 07:18 36.2 94 18 160/83 (108) 91 Room Air 11/16/17 04:00 Room Air 11/16/17 03:48 36.4 96 18 141/98 (112) 94 Room Air 11/16/17 00:00 Room Air 11/15/17 22:54 36.7 76 18 122/71 (88) 94 Room Air 11/15/17 20:00 Room Air 11/15/17 19:28 36.6 75 20 160/91 (114) 96 Room Air 11/15/17 16:00 Room Air 11/15/17 12:00 Room Air 11/15/17 11:40 36.5 73 20 140/79 (99) 96 Lab Results: Results Past 24 Hours Test 11/15/17 11:30 11/15/17 11:34 11/15/17 16:59 11/15/17 20:33 Range/Units Urine Color DK YELLOW Urine Appearance CLEAR CLEAR Urine pH 5.0 4.5-7.5 Urine Specific [place] 1.018 1.000-1.030 Urine Protein TRACE NEG Urine Glucose (UA) NEG NEG Urine Ketones NEG NEG Urine Occult Blood NEG NEG Urine Nitrite NEG NEG Urine Bilirubin NEG NEG Urine Urobilinogen NEG NEG Urine Leukocyte Esterase SMALL NEG Urine WBC (Auto) 10-30 0-5 /hpf Urine RBC (Auto) 0-4 0-4 /hpf Urine Hyaline Casts (Auto) 1-5 0-5 /lpf Urine Epithelial Cells (Auto) 10-20 0-5 /lpf Urine Bacteria (Auto) NEG NEG Bedside Glucose 211 105 138 70-99 mg/dl Test 11/16/17 05:46 11/16/17 07:27 Range/Units White Blood Count 6.37 4.8-10.8 K/uL Red Blood Count 3.97 4.7-6.1 M/uL Hemoglobin 13.1 14.0-18.0 g/dL Hematocrit 41.4 42-52 % Mean Corpuscular Volume 104.3 80-100 fL Mean Corpuscular Hemoglobin 33.0 25-34 pg Mean Corpuscular Hemoglobin Concent 31.6 32-36 g/dl RDW Standard Deviation 61.9 36.4-46.3 fL RDW Coefficient of Variation 16.3 11.5-14.5 % Platelet Count 194 130-400 K/uL Mean Platelet Volume 10.0 7.4-10.4 fL Sodium Level 145 136-145 mmol/L Potassium Level 4.4 3.5-5.1 mmol/L Chloride Level 112 98-107 mmol/L Carbon Dioxide Level 25 21-32 mmol/L Anion Gap 8.0 3-11 mmol/L Blood Urea Nitrogen 44 7-18 mg/dl Creatinine 2.12 0.60-1.40 mg/dl Est Creatinine Clear Calc Drug Dose 22.1 ml/min Estimated GFR () 31.5 Estimated GFR (Non- 27.2 BUN/Creatinine Ratio 20.7 10-20 Random Glucose 158 70-99 mg/dl Estimated Average Glucose 157 mg/dl Hemoglobin A1c 7.1 4.5-5.6 % Calcium Level 8.8 8.5-10.1 mg/dl Magnesium Level 2.2 1.8-2.4 mg/dl Bedside Glucose 151 70-99 mg/dl Microbiology Results 11/15/17 Urine Culture, Received Pending
[2017-11-16] MEDS ORDERED: FURO-85 PO (10:26)
[2017-11-16] MEDS ORDERED: CEFD300C2 PO (10:26)
--- NOTE | 2017-11-16 10:29 | Discharge Summary ---
Discharge Summary Date of Service November 16, 2017. Discharge Summary Admission Date: November 14, 2017 at 22:50 Discharge Date: November 16, 2017 Discharge Disposition: nursing home facility Principal Diagnosis: Acute on chronic CHF Exacerbation, Acute respiratory failure, ??UTI Procedures: Venous Doppler: No sonographic evidence of deep venous thrombosis within the right or left lower extremity. LE USD: 1. No flow identified within the left dorsalis pedis and peroneal arteries suggesting age-indeterminate vessel occlusion. 2. Elevated peak systolic velocities within the left posterior tibial and anterior tibial arteries suggest high-grade stenosis. 3. Reversal of flow within the dorsalis pedis artery on the right also suggests high-grade stenosis. 4. Predominately triphasic waveforms above the level of the knees bilaterally as above. These findings could be further evaluated with digital subtraction angiography. ECHO: Normal LV chamber size with mild concentric LVH. * Severely reduced LV systolic function with severe global hypokinesis, EF 25 -30%. * An apical thrombus is suspected but patient's desire to terminate study precluded the use of Definity to confirm. * The right ventricular cavity size is normal (basal dimension <4.2 cm in right ventricular apical 4-chamber view). Reduced RV systolic function by TAPSE. * Aortic valve sclerosis moderate, without significant aortic valvular stenosis. Mild aortic regurgitation. * Mild mitral regurgitation. * Mild tricuspid regurgitation. * Mild left atrial enlargement. Consultations: Cardiology Pending Studies/Follow-Up: Follow up with your PCP in 1 week Follow up with your [employer] on December 21, 2017 at 10:45AM Seek immediate medical attention if your symptoms reoccur or worsen Complete the antibiotic course as prescribed Your Urine culture result is pending: Follow up with your PCP with results Medication changes: Your Cardizem was discontinued Your Lasix was increased to 20mg twice a day Omnicef 300mg daily for 3 days (Renally Adjusted) Call your Primary Care doctor if any of the following symptoms or problems start or get worse: * Shortness of breath or difficulty breathing * Wake up at night short of breath * Chest pain * Cough * Swelling of your hands, feet, or legs * More fatigued or tired with your normal activity * Palpitations - sudden fast heart beats WEIGHT * Weigh yourself every morning after using the bathroom. * Use the same scale. * Wear the same amount of clothing. * Write your weight down on a chart. * Call your Primary Care doctor if you gain more than 2-3 pounds in 1-2 days. MEDICATIONS * Use this discharge instruction sheet for medication instructions. * Take your medications at the time your doctor ordered. * Do not skip a dose of your medicines. * If you miss a dose of medicine, take it as soon as possible, but DO NOT DOUBLE A DOSE. * Read your medicine information when you get home. * Know all of the side effects of your medicine. If in doubt, ask your pharmacist * Call your Primary Care doctor's office if you have any side effects. * Be sure all of your doctors know what medicine and herbs you take (including cold, flu, and herbal medicine). Take the following with you to your follow-up doctor appointments: * Weight Chart * Medication List * List of questions Do not drink excessive alcohol, beer or wine. Medication Reconciliation New Medications: Cefdinir (Omnicef) 300 Mg Cap 1 CAP PO DAILY for 3 Days, #3 CAP Changed Medications: Furosemide (Lasix) 20 Mg Tab 20 MG PO BID for 30 Days, #60 TAB 1 Refill (Changed from: DAILY; Refills: ) Continued Medications: Acetaminophen Tab (Tylenol) 325 Mg Tab 650 MG PO PRN for Pain, TAB Allopurinol (Allopurinol) 100 Mg Tab 150 MG PO QAM Apixaban (Eliquis) 2.5 Mg Tab 2.5 MG PO BID, #60 TAB 3 Refills Aspirin (Aspirin Adult Low Dose) 81 Mg Tab 81 MG PO DAILY for 30 Days, #30 TABS 3 Refills Carvedilol (Carvedilol) 3.125 Mg Tab 3.125 MG PO BID for 30 Days, #60 TAB Clotrimazole W/ Betamethasone (Lotrisone) 1 Cre Cre 1 APPLN TOP AMPM for 5 Days, #15 GM Cyanocobalamin (Vitamin B-12) 500 Mcg Tab 500 MCG PO DAILY, TAB Ferrous Sulfate (Ferrous Sulfate) 325 Mg Tab 325 MG PO BIDM for 30 Days, TAB Glipizide (Glucotrol) 5 Mg Tab 5 MG PO DAILY Guaifenesin La (Guaifenesin Er) 600 Mg Tabcr 600 MG PO Q12H PRN for Cough, TAB Lisinopril (Zestril) 5 Mg Tab 5 MG PO DAILY, TAB Lorazepam (Ativan) 0.5 Mg Tab 0.5 MG PO BID PRN for Anxiety, TAB Mirtazapine (Mirtazapine) 15 Mg Tab 15 MG PO HS Multiple Vitamin (Thera) 1 Tab Tab 1 TAB PO DAILY Nystatin (Topical) (Nystatin) 100,000 Unit/Gm Pow BID PRN for SKIN IRRITATION Pantoprazole (Protonix) 40 Mg Tab 40 MG PO DAILY, #30 TAB Quetiapine Fumarate (Seroquel) 25 Mg Tab 12.5 MG PO HS, TAB Venlafaxine Hcl (Effexor Xr) 150 Mg Cap 150 MG PO DAILY for 30 Days, #30 CAP 2 Refills Venlafaxine Hcl (Effexor Xr) 37.5 Mg Cap 37.5 MG PO DAILY for 30 Days, #30 CAP Vitamin B Complex (Vitamin B Complex) 1 Tab Tab 1 TAB PO DAILY Discontinued Medications: Diltiazem HCl (Diltiazem HCl) 30 Mg Tab 30 MG PO DAILY for 30 Days, #30 TAB Admission Information HPI (per Admitting provider): 87 years old male with past medical history of dementia, diabetes type 2, dyslipidemia, hypertension, chronic diastolic heart failure from [facility] was brought via EMS for low oxygen saturation. History was limited due to patient dementia. patient pulse oximetry has been ranging between 80s-100% on room air. As per as per ER chart, patient was not on any sign of distress when brought by EMS. Patient was placed on 2 L nasal cannula and his oxygen saturation was the same ranging between 80s-100%. Patient said that he feels fine and does not wants to get admitted because he does not have any problem of breathing. He was recently in the ER on November 09 for low oxygen level noted from the half-way but in the ER oxygen level was normal. During last visit he had the CT chest done that was negative. Currently patient lying in bed comfortable. Pt denies LOC, headache, fevers, chills, diaphoresis, visual changes, neck pain, chest pain, current breathing difficulties, nausea, vomiting , abdominal pain, back pain, melena, hematochezia, urinary symptoms, numbness, weakness, lymphadenopathy, rash. Lab done in the ER showed troponin mildly elevated, creatinine 2.2 that improves from last creatinine back in November 09 that was 2.6. I was planning to discharge patient back to the half-way but his 2nd set of troponin was mildly increased. Physical Exam (per Admitting): General Appearance: WD/WN, no apparent distress Head: normocephalic, atraumatic Eyes: PERRL, EOMI ENT: normal ENT inspection Neck: no JVD, trachea midline Respiratory/Chest: chest non-tender, no respiratory distress, no accessory muscle use Cardiovascular: regular rate, rhythm, no JVD Abdomen/GI: normal bowel sounds, non tender, soft Back: no CVA tenderness Extremities/Musculoskelatal: no calf tenderness, + swelling Neurologic/Psych: no motor/sensory deficits, alert, normal mood/affect Skin: warm/dry, no rash Hospital Course Acute on chronic systolic and diastolic CHF: Systolic function worsened:Unclear Etiology Acute respiratory failure Denies any SOB, chest pain CXR:Cardiomegaly with mild pulmonary edema Received lasix in ED ECHO:Severe global hypokinesis, EF 25-30%. Continue diuretics, Beta Duglas, ACEs Increased lasix to 20mg BID Cardizem discontinued as per Cardiology recommendations Monitor I/Os, daily weight Oxygen support PRN Appreciate Cardiology Input Saturating well on Room Air Patient is wheelchair bound at baseline, so will defer 2 step Atrial Fibrillation: Rate controlled Continue current medications On Eliquis for anticoagulation Abnormal UA ?UTI Denies dysuria, urinary frequency but history unreliable Urine culture:pending Repeat UA: normal Empirically on Ceftriaxone Day # 2 ? 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 Monitor renal function Avoid Nephrotoxic agents as able DM II: Hold oral agents ISS, Basal Insulin update A1C Monitor BGs Dementia: No signs of agitation PAD: Continue Aspirin DVT Px: On Eliquis Code Status: DNR Disposition: Plan to discharge back to [facility] Today Follow up with your PCP in 1 week Follow up with your [employer] on December 21, 2017 at 10:45AM Seek immediate medical attention if your symptoms reoccur or worsen Complete the antibiotic course as prescribed Medication changes: Your Cardizem was discontinued Your Lasix was increased to 20mg twice a day PROCEDURES: ECHO: Normal LV chamber size with mild concentric LVH. * Severely reduced LV systolic function with severe global hypokinesis, EF 25 -30%. * An apical thrombus is suspected but patient's desire to terminate study precluded the use of Definity to confirm. * The right ventricular cavity size is normal (basal dimension <4.2 cm in right ventricular apical 4-chamber view). Reduced RV systolic function by TAPSE. * Aortic valve sclerosis moderate, without significant aortic valvular stenosis. Mild aortic regurgitation. * Mild mitral regurgitation. * Mild tricuspid regurgitation. * Mild left atrial enlargement. Total time spent on discharge = This includes examination of the patient, discharge planning, medication reconciliation, and communication with other providers. Discharge Instructions Discharge Instructions Date of Service November 16, 2017. Admission Reason for Admission: SOB Discharge Discharge Diagnosis / Problem: Acute on chronic CHF Exacerbation, Acute respiratory failure, ??UTI Discharge Goals Goal(s): Decrease discomfort, Improve function Activity Recommendations Activity Limitations: resume your previous activity Exercise/Sports Limitations: as tolerated . Instructions / Follow-Up Instructions / Follow-Up Follow up with your PCP in 1 week Follow up with your [employer] on December 21, 2017 at 10:45AM Seek immediate medical attention if your symptoms reoccur or worsen Complete the antibiotic course as prescribed Your Urine culture result is pending: Follow up with your PCP with results Medication changes: Your Cardizem was discontinued Your Lasix was increased to 20mg twice a day Omnicef 300mg daily for 3 days (Renally Adjusted) Call your Primary Care doctor if any of the following symptoms or problems start or get worse: * Shortness of breath or difficulty breathing * Wake up at night short of breath * Chest pain * Cough * Swelling of your hands, feet, or legs * More fatigued or tired with your normal activity * Palpitations - sudden fast heart beats WEIGHT * Weigh yourself every morning after using the bathroom. * Use the same scale. * Wear the same amount of clothing. * Write your weight down on a chart. * Call your Primary Care doctor if you gain more than 2-3 pounds in 1-2 days. MEDICATIONS * Use this discharge instruction sheet for medication instructions. * Take your medications at the time your doctor ordered. * Do not skip a dose of your medicines. * If you miss a dose of medicine, take it as soon as possible, but DO NOT DOUBLE A DOSE. * Read your medicine information when you get home. * Know all of the side effects of your medicine. If in doubt, ask your pharmacist * Call your Primary Care doctor's office if you have any side effects. * Be sure all of your doctors know what medicine and herbs you take (including cold, flu, and herbal medicine). Take the following with you to your follow-up doctor appointments: * Weight Chart * Medication List * List of questions Do not drink excessive alcohol, beer or wine. Current Hospital Diet Patient's current hospital diet: Low Sodium Diet (2gm Na), Diabetes Type 2 Diet Discharge Diet Recommended Diet: Low Sodium Diet (2gm Na), Diabetes Type 2 Diet Pending Studies Studies pending at discharge: yes List of pending studies: Urine Culture Laboratory Results Hemoglobin A1c Test 11/16/17 05:46 Range/Units Estimated Average Glucose 157 mg/dl Hemoglobin A1c 7.1 H 4.5-5.6 % Medical Emergencies . Who to Call and When: Call 911 or go to the Emergency Room if: * If at any time you feel your situation is an emergency * You have tightness or pain in your chest that does not go away with rest or Nitroglycerin * You are very short of breath even with rest . Non-Emergent Contact Non-Emergency issues call your: Primary Care Provider, [employer] Call Non-Emergent contact if: you have a fever, your pain is not controlled, your pain is worsening, your pain is unusual for you, your pain is concerning you, you have any medication questions Seek immediate medical attention if your symptoms reoccur or worsen . . "Provider Documentation" section prepared by Edgar Willoughby. .
[2017-11-16 11:25] VITALS: BP 128/85; PULSE 104; TEMP 36.2; O2SAT 98
[2017-11-16] MEDS: ASPIRIN 81 MG CHEW PO SCH (12:22)
[2017-11-16 13:23] VITALS: BP 128/85; PULSE 104; TEMP 36.2; O2SAT 98
[2017-11-17] MEDS ORDERED: CEPH500C2 PO (10:52)
== END 2017-11-16 14:03 ==
LOC: EDBD 16:20 → C.EDA 16:21 → C.MED 22:50 → ENRESERV 23:22 → C.MED 11-15 02:38
PROVIDERS: ADMIT Internal Medicine; ATTEND Internal Medicine
DX: I50.43 Acute on chronic combined systolic (congestive) and diastolic (congestive) heart failure (principal); J96.00 Acute respiratory failure, unspecified whether with hypoxia or hypercapnia; I48.2 Chronic atrial fibrillation; I42.9 Cardiomyopathy, unspecified; E11.9 Type 2 diabetes mellitus without complications; I45.81 Long QT syndrome; I73.9 Peripheral vascular disease, unspecified; F41.9 Anxiety disorder, unspecified; I12.9 Hypertensive chronic kidney disease with stage 1 through stage 4 chronic kidney disease, or unspecified chronic kidney disease; N18.4 Chronic kidney disease, stage 4 (severe); I25.10 Atherosclerotic heart disease of native coronary artery without angina pectoris; F32.9 Major depressive disorder, single episode, unspecified; F03.90 Unspecified dementia, unspecified severity, without behavioral disturbance, psychotic disturbance, mood disturbance, and anxiety; E78.5 Hyperlipidemia, unspecified; Z85.46 Personal history of malignant neoplasm of prostate; Z87.442 Personal history of urinary calculi; Z90.89 Acquired absence of other organs; Z90.49 Acquired absence of other specified parts of digestive tract; Z90.5 Acquired absence of kidney; Z90.79 Acquired absence of other genital organ(s); Z82.49 Family history of ischemic heart disease and other diseases of the circulatory system; Z79.82 Long term (current) use of aspirin; Z79.01 Long term (current) use of anticoagulants; Z79.4 Long term (current) use of insulin